=== PATIENT | female | born 1990 | race Caucasian/White ===

== ENCOUNTER 2016-09-17 07:20 | Emergency (ER) | payer OTHER ==
--- NOTE | 2016-09-17 09:29 | ED ORDER SUMMARY ---
..... Patient: EDVIN PADILLA OrderSheet [facility] VisitID: [id number] [address] [place] [address] 25y, F Registration Date/Time: 09/17/2016 ORDER SHEET Weight: 108.8 kg (stated) Allergies: No Known Drug Allergy GENERAL ORDERS: US Pelvic Complete w Transvag Urgent (07:32 09/17/2016 Trev RUSSO) (Ack 8:20 LNations ER Tech1) (9:35 KWilliams R.N.) UA-Culture if indicated Urgent (07:33 09/17/2016 Trev RUSSO) (7:50 KWilliams R.N.) Urine Urgent (07:33 09/17/2016 Trev RUSSO) (7:50 KWilliams R.N.) Rapid Influenza Screen (Nasal Pharyngeal) (CONFIGURATION ENGINEER swab) Urgent (07:50 09/17/2016 KWilliams R.N. verbal order read back to Trev RUSSO) (7:50 KWilliams R.N.) CBC w Diff Urgent (08:08 09/17/2016 Trev RUSSO) (Ack 8:20 LNations ER Tech1) (8:33 KWilliams R.N.) MEDICATION ORDERS: - (tamiflu 75 mg PO x 1) (08:32 09/17/2016 Trev RUSSO) (8:45 KWilliams R.N.) IV FLUIDS: IV NS : initial bolus 1000 mL (1000 mL/hr), then none - (NOW) (08:07 09/17/2016 Trev RUSSO) (8:34 KWilliams R.N.) Zofran IV 8 mg (NOW) (08:08 09/17/2016 Trev RUSSO) (8:44 KWilliams R.N.) Toradol IV 30 mg (NOW) (08:09/17/2016 Trev RUSSO) (8:45 KWilliams R.N.) ORDER SHEET NOTES: [Electronically signed by Jules Knox R.N. (10:08 09/17/2016)] [Electronically signed by Joellen Flores MD (06:47 09/21/2016)] [Electronically locked/signed by Jules Knox R.N. (10:08 09/17/2016)]
--- NOTE | 2016-09-17 09:29 | ED CLINICAL REPORT ---
Clinical Report - Physicians/Mid Levels [facility] [address] [place] [address] 09/17/2016 7:21 Patient: EDVIN PADILLA Time Seen: 07:32. Arrived- By private vehicle. Historian- patient. HISTORY OF PRESENT ILLNESS Chief Complaint: VOMITING and DIARRHEA. NAUSEA body aches, fever, sore throat, cough. This started several days ago and is still present. No recent travel. She has had nausea, vomiting and diarrhea. No black stools, bloody stools, abdominal pain, constipation or flank pain. No history of possible bad food exposure. Has not recently been camping or on antibiotics. She has had contact with a sick individual. 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 The illness is described as moderate. (Pt also notes that she has had heavy uterine bleeding since her IUD was removed 2 weeks ago.). Similar symptoms previously: None. Recent medical care: The patient was seen recently by a health care provider. REVIEW OF SYSTEMS The patient has had fever, muscle aches and abnormal bleeding. She has had a headache, sore throat and cough and dizziness. No difficulty with urination, dark urine, chest pain, difficulty breathing or excessive urination. No skin rash, jaundice, back pain, fainting episodes or blurred vision. Denies current . All systems otherwise negative, except as recorded above. PAST HISTORY Problems: GI Bleeding. LNMP - Last Normal Menstrual Period. Constipation. Immunizations. . Additional Surgeries: Endoscopy. Medications: None. Allergies: No Known Drug Allergy. SOCIAL HISTORY Never smoker. No alcohol use or drug use. ADDITIONAL NOTES The nursing notes have been reviewed. PHYSICAL EXAM Vital Signs: 09/17/2016 07:42 BP: 103/61. HR: 119. RR: 19. O2 saturation: 96%. Temp: 99.3 F. Have been reviewed. Appearance: Alert. Oriented X3. No acute distress. Eyes: Pupils equal, round and reactive to light. Eyes normal inspection. ENT: Nose normal. Neck: Normal inspection. CVS: Normal heart rate and rhythm. Heart sounds normal. Pulses normal. Respiratory: No respiratory distress. Breath sounds normal. Abdomen: Soft and nontender. Back: Normal inspection. No CVA tenderness. : Normal external exam. Moderate vaginal bleeding, consisting of bright red blood, via the cervical os. Bimanual exam normal. Skin: Skin warm and dry. Normal skin color. No rash. Normal skin turgor. Extremities: Extremities exhibit normal ROM. No lower extremity edema. Neuro: Oriented X 3. No motor deficit. No sensory deficit. LABS, X-RAYS, AND EKG Pelvic Sonogram: Normal study. Uterus normal. Adnexa normal. No free fluid. No intrauterine . Study type: bedside transvaginal evaluation. The study was interpreted by the radiologist and discussed with the radiologist. Prior studies were not available for comparison. Laboratory Tests: UA-Culture if indicated: (DOUGLAS: 09/17/2016 07:48) ( [facility] [place] 09/17/2016 08:41) Final results Test Result Flag Units (Reference) URINE COLOR YELLOW URINE APPEARANCE CLEAR URINE GLUCOSE NEGATIVE (NEGATIVE) URINE BILIRUBIN NEGATIVE (NEGATIVE) URINE KETONE NEGATIVE (NEGATIVE) URINE SPECIFIC GRAVITY 1.020 (1.010-1.030) URINE PH 6.0 (5.0-8.0) URINE PROTEIN NEGATIVE (NEGATIVE) URINE UROBILINOGEN 0.2 EU/dL (0.2-1.0) URINE NITRITE NEGATIVE (NEGATIVE) URINE BLOOD 3+ (NEGATIVE) URINE LEUK ESTERASE NEGATIVE (NEGATIVE) URINE RBC 3-5 rbc/hpf (0-1) URINE WBC 0-1 wbc/hpf (0-1) URINE EPITHELIAL CELLS 0-1 EPI/hpf (0-5) URINE BACTERIA FEW (1+) (NONE SEEN) URINE COMMENT CULT NOT INDICATED URINE CULTURES ARE SET-UP BASED ON THE FOLLOWING CRITERIA:POSITIVE NITRITEPOSITIVE LEUKOCYTE ESTERASEGREATER THAN 10 WHITE BLOOD CELLSMODERATE (2+) OR GREATER BACTERIA Urine: (DOUGLAS: 09/17/2016 07:48) ( [facility] [place] [facility]) Final results Test Result Flag Units (Reference) URINE NEGATIVE CBC w Diff: (DOUGLAS: 09/17/2016 08:25) ( MsgRcvd 09/17/2016 08:38) Final results Test Result Flag Units (Reference) WHITE BLOOD COUNT 8.1 K/uL (4.5-11.5) RED BLOOD COUNT 4.43 M/uL (4.00-5.20) HEMOGLOBIN 12.4 gm/dL (12.0-16.0) HEMATOCRIT 37.7 % (36.0-46.0) MEAN CELL VOLUME 85 fL (80-100) MEAN CORPUSCULAR HGB 28 pg (26-34) MEAN CORPUSCULAR HGB CONC 33 g/dL (31-37) RED CELL DISTRIBUTION WIDTH 12.9 % (11.6-14.8) PLATELET COUNT 240 K/uL (150-400) NEUTROPHIL % 75.1 H % (50-75) LYMPH % 15.7 L % (25-40) MONO % 8.8 % (3-14) EOSINOPHIL % 0.2 % (0-4) BASOPHIL % 0.2 % (0-2) Rapid Influenza Screen: (DOUGLAS: 09/17/2016 07:42) ( MsgRcvd 09/17/2016 08:19) Final results SPECIMEN DESCRIPTION: ALUMINUM POURER SWAB Test Result Flag Units (Reference) RAPID INFLUENZA SCREEN CALLED TO: SALVADOR -- DATE: 09/17/16 INFLUENZA A: POSITIVE SCREEN FOR INFLUENZA A INFLUENZA B: NEGATIVE SCREEN FOR INFLUENZA B . Pulse Oximetry: 09/17/2016 07:42 O2 saturation: 96%. (FIO2 - room air). Interpretation: normal. PROGRESS AND PROCEDURES Course of Care: PT was given a liter of IV fluid, and worked up for her sx. She was found to be positive for influenza A, and as such, was treated with Tamiflu. Pt's H/H were found to be normal. A pelvic US was ordered, and showed noconcerning findings. Pt will follow up her dysfunctional uterine bleeding on 09/21, as planned, with her doctor. I suspect this bleeding is secondary to the withdrawal of hormones, which occurred when the hormone-eluting IUD was removed. Patient counseled in person regarding the patient's stable condition, test results, diagnosis and need for follow-up. Concerns were addressed. Old medical records reviewed. Disposition: Discharged. Condition: stable. CLINICAL IMPRESSION Moderate pre-menopausal dysfunctional uterine bleeding. Influenza type A with upper respiratory infection, pharyngitis and gastroenteritis. INSTRUCTIONS Do not work for three days. Drink plenty of fluids. (Your blood levels look good--no anemia. Your influenza test was positive for influenza A, and you have been started on Tamiflu for this.). Warnings: GENERAL WARNINGS: Return or contact your physician immediately if your condition worsens or changes unexpectedly, if not improving as expected, or if other problems arise. Prescription Medications: Zofran (orally disintegrating tablets) 4 mg: take 1-2 orally every 6 hours as needed for nausea. Dispense fifteen (15). No refill. Substitution is permissible. Tamiflu 75 mg: take 1 capsule orally every 12 hours for 5 days. No refill. Substitution is permissible. Follow-up: Follow up with your doctor in four days as scheduled. Understanding of the discharge instructions verbalized by patient. (Electronically signed by Joellen Flores MD 09/21/2016 6:47)
--- NOTE | 2016-09-17 09:29 | ED CLINICAL REPORT ---
Clinical Report - Physicians/Mid Levels [facility] [address] [place] [address] 09/17/2016 7:21 Patient: EDVIN PADILLA Time Seen: 07:32. Arrived- By private vehicle. Historian- patient. HISTORY OF PRESENT ILLNESS Chief Complaint: VOMITING and DIARRHEA. NAUSEA body aches, fever, sore throat, cough. This started several days ago and is still present. No recent travel. She has had nausea, vomiting and diarrhea. No black stools, bloody stools, abdominal pain, constipation or flank pain. No history of possible bad food exposure. Has not recently been camping or on antibiotics. She has had contact with a sick individual. 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 The illness is described as moderate. (Pt also notes that she has had heavy uterine bleeding since her IUD was removed 2 weeks ago.). Similar symptoms previously: None. Recent medical care: The patient was seen recently by a health care provider. REVIEW OF SYSTEMS The patient has had fever, muscle aches and abnormal bleeding. She has had a headache, sore throat and cough and dizziness. No difficulty with urination, dark urine, chest pain, difficulty breathing or excessive urination. No skin rash, jaundice, back pain, fainting episodes or blurred vision. Denies current . All systems otherwise negative, except as recorded above. PAST HISTORY Problems: GI Bleeding. LNMP - Last Normal Menstrual Period. Constipation. Immunizations. . Additional Surgeries: Endoscopy. Medications: None. Allergies: No Known Drug Allergy. SOCIAL HISTORY Never smoker. No alcohol use or drug use. ADDITIONAL NOTES The nursing notes have been reviewed. PHYSICAL EXAM Vital Signs: 09/17/2016 07:42 BP: 103/61. HR: 119. RR: 19. O2 saturation: 96%. Temp: 99.3 F. Have been reviewed. Appearance: Alert. Oriented X3. No acute distress. Eyes: Pupils equal, round and reactive to light. Eyes normal inspection. ENT: Nose normal. Neck: Normal inspection. CVS: Normal heart rate and rhythm. Heart sounds normal. Pulses normal. Respiratory: No respiratory distress. Breath sounds normal. Abdomen: Soft and nontender. Back: Normal inspection. No CVA tenderness. : Normal external exam. Moderate vaginal bleeding, consisting of bright red blood, via the cervical os. Bimanual exam normal. Skin: Skin warm and dry. Normal skin color. No rash. Normal skin turgor. Extremities: Extremities exhibit normal ROM. No lower extremity edema. Neuro: Oriented X 3. No motor deficit. No sensory deficit. LABS, X-RAYS, AND EKG Pelvic Sonogram: Normal study. Uterus normal. Adnexa normal. No free fluid. No intrauterine . Study type: bedside transvaginal evaluation. The study was interpreted by the radiologist and discussed with the radiologist. Prior studies were not available for comparison. Laboratory Tests: UA-Culture if indicated: (DOUGLAS: 09/17/2016 07:48) ( [facility] [place] 09/17/2016 08:41) Final results Test Result Flag Units (Reference) URINE COLOR YELLOW URINE APPEARANCE CLEAR URINE GLUCOSE NEGATIVE (NEGATIVE) URINE BILIRUBIN NEGATIVE (NEGATIVE) URINE KETONE NEGATIVE (NEGATIVE) URINE SPECIFIC GRAVITY 1.020 (1.010-1.030) URINE PH 6.0 (5.0-8.0) URINE PROTEIN NEGATIVE (NEGATIVE) URINE UROBILINOGEN 0.2 EU/dL (0.2-1.0) URINE NITRITE NEGATIVE (NEGATIVE) URINE BLOOD 3+ (NEGATIVE) URINE LEUK ESTERASE NEGATIVE (NEGATIVE) URINE RBC 3-5 rbc/hpf (0-1) URINE WBC 0-1 wbc/hpf (0-1) URINE EPITHELIAL CELLS 0-1 EPI/hpf (0-5) URINE BACTERIA FEW (1+) (NONE SEEN) URINE COMMENT CULT NOT INDICATED URINE CULTURES ARE SET-UP BASED ON THE FOLLOWING CRITERIA:POSITIVE NITRITEPOSITIVE LEUKOCYTE ESTERASEGREATER THAN 10 WHITE BLOOD CELLSMODERATE (2+) OR GREATER BACTERIA Urine: (DOUGLAS: 09/17/2016 07:48) ( [facility] [place] Final results Test Result Flag Units (Reference) URINE NEGATIVE CBC w Diff: (DOUGLAS: 09/17/2016 08:25) ( MsgRcvd 09/17/2016 08:38) Final results Test Result Flag Units (Reference) WHITE BLOOD COUNT 8.1 K/uL (4.5-11.5) RED BLOOD COUNT 4.43 M/uL (4.00-5.20) HEMOGLOBIN 12.4 gm/dL (12.0-16.0) HEMATOCRIT 37.7 % (36.0-46.0) MEAN CELL VOLUME 85 fL (80-100) MEAN CORPUSCULAR HGB 28 pg (26-34) MEAN CORPUSCULAR HGB CONC 33 g/dL (31-37) RED CELL DISTRIBUTION WIDTH 12.9 % (11.6-14.8) PLATELET COUNT 240 K/uL (150-400) NEUTROPHIL % 75.1 H % (50-75) LYMPH % 15.7 L % (25-40) MONO % 8.8 % (3-14) EOSINOPHIL % 0.2 % (0-4) BASOPHIL % 0.2 % (0-2) Rapid Influenza Screen: (DOUGLAS: 09/17/2016 07:42) ( MsgRcvd 09/17/2016 08:19) Final results SPECIMEN DESCRIPTION: [place] HISTORY PROFESSOR SWAB Test Result Flag Units (Reference) RAPID INFLUENZA SCREEN CALLED TO: SALVADOR -- DATE: 09/17/16 INFLUENZA A: POSITIVE SCREEN FOR INFLUENZA A INFLUENZA B: NEGATIVE SCREEN FOR INFLUENZA B . Pulse Oximetry: 09/17/2016 07:42 O2 saturation: 96%. (FIO2 - room air). Interpretation: normal. PROGRESS AND PROCEDURES Course of Care: PT was given a liter of IV fluid, and worked up for her sx. She was found to be positive for influenza A, and as such, was treated with Tamiflu. Pt's H/H were found to be normal. A pelvic US was ordered, and showed noconcerning findings. Pt will follow up her dysfunctional uterine bleeding on 09/21, as planned, with her doctor. I suspect this bleeding is secondary to the withdrawal of hormones, which occurred when the hormone-eluting IUD was removed. Patient counseled in person regarding the patient's stable condition, test results, diagnosis and need for follow-up. Concerns were addressed. Old medical records reviewed. Disposition: Discharged. Condition: stable. CLINICAL IMPRESSION Moderate pre-menopausal dysfunctional uterine bleeding. Influenza type A with upper respiratory infection, pharyngitis and gastroenteritis. INSTRUCTIONS Do not work for three days. Drink plenty of fluids. (Your blood levels look good--no anemia. Your influenza test was positive for influenza A, and you have been started on Tamiflu for this.). Warnings: GENERAL WARNINGS: Return or contact your physician immediately if your condition worsens or changes unexpectedly, if not improving as expected, or if other problems arise. Prescription Medications: Zofran (orally disintegrating tablets) 4 mg: take 1-2 orally every 6 hours as needed for nausea. Dispense fifteen (15). No refill. Substitution is permissible. Tamiflu 75 mg: take 1 capsule orally every 12 hours for 5 days. No refill. Substitution is permissible. Follow-up: Follow up with your doctor in four days as scheduled. Understanding of the discharge instructions verbalized by patient. (Electronically signed by Joellen Flores MD 09/21/2016 6:47)
--- NOTE | 2016-09-17 09:29 | ED ORDER SUMMARY ---
..... Patient: EDVIN PADILLA OrderSheet [facility] VisitID: [id number] [address] [place] [address] 25y, F Registration Date/Time: 09/17/2016 ORDER SHEET Weight: 108.8 kg (stated) Allergies: No Known Drug Allergy GENERAL ORDERS: US Pelvic Complete w Transvag Urgent (07:32 09/17/2016 Trev RUSSO) (Ack 8:20 LNations ER Tech1) (9:35 KWilliams R.N.) UA-Culture if indicated Urgent (07:33 09/17/2016 Trev RUSSO) (7:50 KWilliams R.N.) Urine Urgent (07:33 09/17/2016 Trev RUSSO) (7:50 KWilliams R.N.) Rapid Influenza Screen (Nasal Pharyngeal) (PAYROLL MASTER swab) Urgent (07:50 09/17/2016 KWilliams R.N. verbal order read back to Trev RUSSO) (7:50 KWilliams R.N.) CBC w Diff Urgent (08:08 09/17/2016 Trev RUSSO) (Ack 8:20 LNations ER Tech1) (8:33 KWilliams R.N.) MEDICATION ORDERS: - (tamiflu 75 mg PO x 1) (08:32 09/17/2016 Trev RUSSO) (8:45 KWilliams R.N.) IV FLUIDS: IV NS : initial bolus 1000 mL (1000 mL/hr), then none - (NOW) (08:07 09/17/2016 Trev RUSSO) (8:34 KWilliams R.N.) Zofran IV 8 mg (NOW) (08:08 09/17/2016 Trev RUSSO) (8:44 KWilliams R.N.) Toradol IV 30 mg (NOW) (08:09/17/2016 Trev RUSSO) (8:45 KWilliams R.N.) ORDER SHEET NOTES: [Electronically signed by Jules Knox R.N. (10:08 09/17/2016)] [Electronically signed by Joellen Flores MD (06:47 09/21/2016)] [Electronically locked/signed by Jules Knox R.N. (10:08 09/17/2016)]
--- NOTE | 2016-09-17 09:29 | ED NURSING NOTES ---
Clinical Report - Nurses [facility] [address] [place] [address] 09/17/2016 7:21 Patient: EDVIN PADILLA TRIAGE Triage time 07:30. Acuity: LEVEL 3. Chief Complaint: "FLU" and COUGH and possible FLU EXPOSURE. 07:42 09/17/16. Alert. No acute distress. SEPSIS SCREEN: Sepsis Screen. Infection suspected/documented. Heart rate greater than 90. Respiratory rate not greater than 20. --07:42 Jules Knox R.N. 07:42 09/17/16. BP: 103/61. HR: 119. RR: 19. O2 saturation: 96%. Temp: 99.3 F. Pain level now 6/10. --07:42 Jules Knox R.N. Weight: 108.8 kg stated. Height/Length: 66 inches Per Patient. BMI: 38.7. --07:38 Jules Knox R.N. Medications None. --07:41 Jules Knox R.N. Allergies No Known Drug Allergy. --07:41 Jules Knox R.N. Medication/allergy information source: the patient. --07:42 Jules Knox R.N. History Arrived by private vehicle. Historian: patient. Primary physician ([facility] dorothy). ( c/o aches, congestion and coughing x 4 days, with emesis x2 today that contained bright red blood. Also states she has been bleeding vaginally since IUD removal on 09/01 and is going through 4 pads per day. States blood contains clots and has been steady since 09/01). Onset. (4 days ago). 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 (yesterday). PAST MEDICAL HX: Last normal menstrual period- sexually active since IUD removal. No contraception. Denies current . SOCIAL HX: Never smoker. No alcohol use or drug use. FALL RISK ASSESSMENT: Fall risk assessment completed. No fall risk identified. NUTRITIONAL RISK ASSESSMENT: The nutritional risk assessment revealed no deficiencies. FUNCTIONAL ASSESSMENT: Functional assessment: no impairments noted. LEARNING NEEDS ASSESSMENT: The learning needs assessment revealed no barriers. SKIN INTEGRITY ASSESSMENT: Skin integrity risk assessment completed. No skin integrity risk identified. --07:42 Jules Knox R.N. PROBLEMS: Pelvic Pain. GI Bleeding. URI. Constipation. Abdominal Pain. . --07:41 Jules Knox R.N. ADDITIONAL SURGERIES: Endoscopy. --07:41 Jules Knox R.N. Interventions ID band on patient. To treatment room. --07:42 Jules Knox R.N. PHYSICAL ASSESSMENT 07:43 09/17/16. Ambulatory to room. GENERAL / NEURO / PSYCH: Alert. Oriented X 4. Appears in no acute distress. HEENT: Mucous membranes are pink. RESPIRATORY: Respirations not labored. Cough. CVS: Pulses within normal limits. GI / : Abdomen soft and nontender. SKIN: Skin intact. Skin is warm and dry. --07:43 Jules Knox R.N. NURSING PROGRESS NOTES 07:43 09/17/16. The plan of care for this patient has been created. Patient gowned. Head of bed elevated. Call light placed in reach. Bed placed in lowest position. Brakes of bed on. --07:43 Jules Knox R.N. 07:46 09/17/16. Checked patient name and birthdate: patient confirmed. Flu swab obtained by RN via nasal pharyngeal swab. Labeled in the presence of the patient and sent to lab. --07:46 Jules Knox R.N. Assisted patient to bathroom. --07:46 Jules Knox R.N. Patient ID band checked for patient name and birthdate: patient confirmed. Instructions provided to collect clean catch urine and patient verbalized understanding. Clean catch urine collected with return of yellow-colored clear urine; odor is normal; sample sent to lab for urinalysis, culture and HCG. Specimen labeled in the presence of the patient. --07:49 Jules Knox R.N. 08:19 09/17/2016 Site #1 started via IV in the left antecubital space with an 20g angiocath, with aseptic technique and good blood return; one attempt. Blood drawn: rainbow set. Labeled in the presence of the patient and sent to the lab. Saline lock flushed with 10 mL saline (ultrasound guidance x20 min). --08:34 Jules Knox R.N. 08:24 09/17/2016 Started bag #1 1000 mL IV Fluids IV NS (Saline); at 999 mL/hr over 1 hour(s) via site #1 via IV pump. Allergies verified and confirmed 5 rights. IV patency established. IV site checked: no pain, redness, or swelling. IV flushed thoroughly pre- and post-medication administration. Completed per protocol. --08:34 Jules Knox R.N. 08:29 09/17/2016 Zofran (Ondansetron HCl) IVP 8 mg given over 4 minute(s) via site #1. Allergies verified and confirmed 5 rights. IV patency established. IV site checked: no pain, redness, or swelling. IV flushed thoroughly pre- and post-medication administration. IVP given by RN. --08:44 Jules Knox R.N. 08:33 09/17/2016 Toradol IVP 30 mg given over 2 minute(s) via site #1. Allergies verified and confirmed 5 rights. IV patency established. IV site checked: no pain, redness, or swelling. IV flushed thoroughly pre- and post-medication administration. IVP given by RN. --08:45 Jules Knox R.N. 08:35 09/17/2016 Tamiflu PO Capsules 75 mg given. Allergies verified and confirmed 5 rights. --08:45 Jules Knox R.N. 08:45 09/17/16. BP: 105/60. HR: 104. RR: 16. O2 saturation: 98%. --08:46 Jules Knox R.N. PELVIC EXAM: Pelvic exam performed by ED physician. Assisted by one nurse. Preparation: pelvic tray and culture medium; patient placed in lithotomy position. Procedure: speculum and bimanual exam. Light amount of vaginal bleeding noted. No specimens collected. Status post-procedure: she was stable. Total time of assist / procedure: 15 minutes. --08:46 Jules Knox R.N. 09:50 09/17/2016 Site #1 removed upon discharge. Bandage applied. --09:59 Jules Knox R.N. 09:50 09/17/2016 IV Fluids IV NS Discontinued: bag #1 discontinued upon discharge. Total amount infused: 800 mL. IV patency established. IV site checked: no pain, redness, or swelling. IV flushed thoroughly. --09:58 Jules Knox R.N. DISPOSITION / DISCHARGE 10:01 09/17/16. Departure time: 0953. Condition at departure: improved and stable. ( MD aware of discharge HR). No learning barriers present. Discharge instructions provided and reviewed with the patient. Reviewed medication(s) side effects, precautions, dosing and course information. Prescription(s) given to the patient. Work note given. Patient verbalized understanding. Written instructions provided in Bengali. The patient was discharged by the physician. She was discharged home. She left the Emergency Department ambulatory and via private vehicle. Patient driving. --10:01 Jules Knox R.N. 09:59 09/17/16. BP: 111/60. HR: 94. RR: 15. O2 saturation: 97% on room air. Temp: 98.4 F (oral). Pain level now 0/10. --10:01 Jules Knox R.N. Locked/Released at 09/17/2016 10:08 by Jules Knox R.N.
--- NOTE | 2016-09-17 10:51 | DIAGNOSTIC IMAGING REPORT ---
PROCEDURE: US COMPLETE PELVIC W/TRANSVAG INDICATION: Bleeding after IUD removal. TECHNIQUE: Transabdominal and endovaginal bach scale and color Doppler sonographic images of the female pelvis were obtained. Ground Defence Officer (Jillian ANTHONY). COMPARISON: Compared to pelvic ultrasound on 08/11/2014. FINDINGS: TRANSABDOMINAL SCANS: Uterus is of normal size (is 6.2 x 6.0 x 4.8 cm). These are normal. TRANSVAGINAL SCANS: Interval removal of IUD. Endometrial thickness is normal (7 mm). Ovaries are normal (right 4.0 cm, left 4.1 cm) with 1.8 cm simple left ovarian cyst. No evidence of free fluid. IMPRESSION: 1. Interval removal of IUD. 2. 1.8 cm simple left ovarian cyst (incidental finding). 3. Otherwise negative pelvic ultrasound.
--- NOTE | 2016-09-21 06:47 | ED DISCHARGE INSTRUCTIONS ---
Patient: EDVIN PADILLA General Instructions [facility] VisitID: [id number] [place] [address] 25y, F Registration Date/Time: 09/17/2016 Moderate pre-menopausal dysfunctional uterine bleeding. Influenza type A with upper respiratory infection, pharyngitis and gastroenteritis. INSTRUCTIONS Do not work for three days. Drink plenty of fluids. (Your blood levels look good--no anemia. Your influenza test was positive for influenza A, and you have been started on Tamiflu for this.). Warnings: GENERAL WARNINGS: Return or contact your physician immediately if your condition worsens or changes unexpectedly, if not improving as expected, or if other problems arise. Prescription Medications: Zofran (orally disintegrating tablets) 4 mg: take 1-2 orally every 6 hours as needed for nausea. Dispense fifteen (15). No refill. Substitution is permissible. Tamiflu 75 mg: take 1 capsule orally every 12 hours for 5 days. No refill. Substitution is permissible. Follow-up: Follow up with your doctor in four days as scheduled. Understanding of the discharge instructions verbalized by patient. ADDITIONAL INFORMATION Irregular Vaginal Bleeding This is a condition in which bleeding occurs at unexpected times of the month. The bleeding may be heavier or pump tender than usual. Heavy bleeding may lead to anemia. If severe enough, anemia may cause you to look pale and feel weak or fatigued. You might have shortness of breath even with little exertion. The female hormones produced in your body every month may be out of balance. This imbalance leads to bleeding. Causes could include an ovarian cyst, emotional stress, pelvic infection. Failure to ovulate during your last cycle may also cause this problem. Home Care: If bleeding is heavy, rest and avoid heavy exertion. You may use acetaminophen (Tylenol) or ibuprofen (Motrin, Advil) to control pain, unless another pain medicine was prescribed. [NOTE: If you have chronic liver or kidney disease or ever had a stomach ulcer or GI bleeding, talk with your doctor before using these medicines.] Iron supplements may be prescribed for anemia. It takes about 4-6 weeks for the iron to correct the anemia. Take the medicine as directed. See your doctor for a repeat blood test after you finish the iron treatment. If hormones were prescribed to control your bleeding, take them exactly as directed. If you were prescribed a medicine called Provera (medroxyprogesterone), the bleeding should stop while you are taking it. Another period will start a few days after you finish the medicine. Follow Up with your doctor, or as advised, within the next 1-2 days if heavy bleeding continues. Otherwise, follow up within the next 1-2 weeks. Get Prompt Medical Attention if any of the following occur: Bleeding becomes heavy (soaking one pad an hour for three hours) Fever of 100.4F (38C) or higher, or as directed by your healthcare provider Increase in abdominal pain Weakness, dizziness or fainting Influenza (Adult) Influenza, also called the flu, is a viral illness that affects the air passages of the lungs. It differs from the common cold. It is highly contagious. It may be spread through the air by coughing and sneezing or by direct contact (touching the sick person and then touching your own eyes, nose or mouth). Illness starts 1-3 days after exposure and lasts for 1-2 weeks. Antibiotics are usually not needed unless a complication appears (ear or sinus infection or pneumonia). Symptoms may be mild or severe and can include extreme tiredness (wanting to stay in bed all day), chills, fevers, muscle aching, soreness with eye movement, headache, and a dry, hacking cough. Home Care: Avoid exposure to cigarette smoke (yours or others). Tylenol or ibuprofen (Advil) will help fever, muscle aching, and headache. To avoid risk of liver injury, aspirin should not be used in children and teenagers under 18 with this illness. Nausea and loss of appetite are common. A light diet is recommended. Avoid dehydration by drinking 6-8 glasses of fluids per day (water, sport drinks like Gatorade, soft drinks without caffeine, juices, tea, soup, etc.). Extra fluids will also help loosen secretions in the nose and lungs. Ltxp-hpo-cybfvts cold medicines will not shorten the duration of the illness but may be helpful for the following symptoms: cough (Robitussin DM); sore throat (Chloraseptic lozenges or spray); nasal and sinus congestion (Actifed or Sudafed). [NOTE: Do not use decongestants if you have high blood pressure.] Stay home until your fever has been gone for at least 24 hours (without the use of fever-reducing medications such as ibuprofen). Follow Up with your doctor or as directed by our staff if you are not improving over the next week. Note: If you are age 65 or older, or if you have chronic asthma or COPD, we recommend a pneumococcal vaccinationevery five years. All adults shouldreceive a yearly influenza vaccination every . Ask your doctor about this. Get Prompt Medical Attention if any of the following occur: Cough with lots of colored sputum (mucus) or blood in your sputum Chest pain, shortness of breath, wheezing, or difficulty breathing Severe headache, face, neck or ear pain New rash Fever of 100.4F (38C) oral or higher, not better with fever medication Confusion, behavior change or seizure Severe weakness or dizziness You have been given the following additional information: Dysfunctional Uterine Bleeding Influenza (Adult) Do not work for three days. (Electronically signed by Joellen Flores MD 09/21/2016 6:47)
--- NOTE | 2016-09-21 06:47 | ED MED RECONCILIATION SUMMARY ---
Patient: EDVIN PADILLA Medication Reconciliation Report [facility] VisitID: [id number] [place] [address] 25y, F Registration Date/Time: 09/17/2016 Weight: 108.8 kg Height/Length: 66 in. BMI: 38.7 ALLERGIES: No Known Drug Allergy The patient's Home Medications are listed below: NONE. The source(s) of the original Home Medication information: patient The following Medications were given to the patient in the Emergency Department: IV NS IV Fluids bolus 0, then 999 mL/hr, administered: 09/17/2016 8:24:00 AM Zofran [IVP] IVP 8 mg, administered: 09/17/2016 8:29:00 AM Toradol [IVP] IVP 30 mg, administered: 09/17/2016 8:33:00 AM Tamiflu [PO] PO 75 mg, administered: 09/17/2016 8:35:00 AM The following Medications were prescribed to the patient: Zofran (orally disintegrating tablets) 4 mg: take 1-2 orally every 6 hours as needed for nausea. Dispense fifteen (15). No refill. Substitution is permissible. -- Joellen Flores MD Tamiflu 75 mg: take 1 capsule orally every 12 hours for 5 days. No refill. Substitution is permissible. -- Joellen Flores MD
--- NOTE | 2016-09-21 06:47 | ED MAR SUMMARY ---
..... Medication Administration Record [facility] [address] [place] [address] Patient: EDVIN PADILLA Visit ID: [id number] 25y, F Weight: 108.8 kg Height/Length: 66 in BMI: 38.7 ALLERGIES: No Known Drug Allergy Start 08:24 09/17/2016 Jules Knox R.N., Stop 09:50 09/17/2016 Jules Knox R.N. Medication Administered: IV NS (SALINE), Dose: IV Fluids over 1 hour(s), Rate: 999 mL/hr, Dispensed: 1000 mL bag, Site: #1 left AC. Medication Ordered: IV NS : initial bolus 1000 mL (1000 mL/hr), then none - (NOW). Given 08:29 09/17/2016 Jules Knox R.N. Medication Administered: ZOFRAN [IVP] (ONDANSETRON HCL), Dose: 8 mg IVP over 4 minute(s), Site: #1 left AC. Medication Ordered: Zofran IV 8 mg (NOW). Given 08:33 09/17/2016 Jules Knox R.N. Medication Administered: TORADOL [IVP], Dose: 30 mg IVP over 2 minute(s), Site: #1 left AC. Medication Ordered: Toradol IV 30 mg (NOW). Given 08:35 09/17/2016 Jules Knox R.N. Medication Administered: TAMIFLU [PO], Dose: 75 mg Capsules PO. Medication Ordered: - (tamiflu 75 mg PO x 1).
--- NOTE | 2016-09-21 06:47 | ED MED RECONCILIATION SUMMARY ---
Patient: EDVIN PADILLA Medication Reconciliation Report [facility] VisitID: [id number] [place] [address] 25y, F Registration Date/Time: 09/17/2016 Weight: 108.8 kg Height/Length: 66 in. BMI: 38.7 ALLERGIES: No Known Drug Allergy The patient's Home Medications are listed below: NONE. The source(s) of the original Home Medication information: patient The following Medications were given to the patient in the Emergency Department: IV NS IV Fluids bolus 0, then 999 mL/hr, administered: 09/17/2016 8:24:00 AM Zofran [IVP] IVP 8 mg, administered: 09/17/2016 8:29:00 AM Toradol [IVP] IVP 30 mg, administered: 09/17/2016 8:33:00 AM Tamiflu [PO] PO 75 mg, administered: 09/17/2016 8:35:00 AM The following Medications were prescribed to the patient: Zofran (orally disintegrating tablets) 4 mg: take 1-2 orally every 6 hours as needed for nausea. Dispense fifteen (15). No refill. Substitution is permissible. -- Joellen Flores MD Tamiflu 75 mg: take 1 capsule orally every 12 hours for 5 days. No refill. Substitution is permissible. -- Joellen Flores MD
--- NOTE | 2016-09-21 06:47 | ED MAR SUMMARY ---
..... Medication Administration Record [facility] [address] [place] [address] Patient: EDVIN PADILLA Visit ID: [id number] 25y, F Weight: 108.8 kg Height/Length: 66 in BMI: 38.7 ALLERGIES: No Known Drug Allergy Start 08:24 09/17/2016 Jules Knox R.N., Stop 09:50 09/17/2016 Jules Knox R.N. Medication Administered: IV NS (SALINE), Dose: IV Fluids over 1 hour(s), Rate: 999 mL/hr, Dispensed: 1000 mL bag, Site: #1 left AC. Medication Ordered: IV NS : initial bolus 1000 mL (1000 mL/hr), then none - (NOW). Given 08:29 09/17/2016 Jules Knox R.N. Medication Administered: ZOFRAN [IVP] (ONDANSETRON HCL), Dose: 8 mg IVP over 4 minute(s), Site: #1 left AC. Medication Ordered: Zofran IV 8 mg (NOW). Given 08:33 09/17/2016 Jules Knox R.N. Medication Administered: TORADOL [IVP], Dose: 30 mg IVP over 2 minute(s), Site: #1 left AC. Medication Ordered: Toradol IV 30 mg (NOW). Given 08:35 09/17/2016 Jules Knox R.N. Medication Administered: TAMIFLU [PO], Dose: 75 mg Capsules PO. Medication Ordered: - (tamiflu 75 mg PO x 1).
== END 2016-09-17 09:53 | disposition home or self-care (01) ==
LOC: ED SRH 07:20
DX: N92.4 Excessive bleeding in the premenopausal period (principal); J10.1 Influenza due to other identified influenza virus with other respiratory manifestations; J06.9 Acute upper respiratory infection, unspecified; J02.9 Acute pharyngitis, unspecified; K52.9 Noninfective gastroenteritis and colitis, unspecified
CPT/HCPCS: 90004; 91400; 93070; 95059

== ENCOUNTER 2016-12-05 19:18 | Emergency (ER) | payer OTHER ==
--- NOTE | 2016-12-05 20:45 | ED NURSING NOTES ---
Clinical Report - Nurses [facility] [address] [place] [address] 12/05/2016 19:20 Patient: EDVIN PADILLA TRIAGE Triage time 19:33 Dec 05 2016. Acuity: LEVEL 3. Chief Complaint: PELVIC PAIN. Alert. DANITZA COMA SCORE: Danitza Coma Scale: 15- eyes open spontaneously (4); best verbal response- oriented x 4 (5); best motor response- obeys commands (6). --19:41 Chevy Jenkins R.N. 19:33 12/05/16. BP: 124/77. HR: 100. RR: 12. O2 saturation: 100% on room air. Temp: 98.8 F. Pain level now: 0/10. --19:41 Chevy Jenkins R.N. Weight: 115.6 kg stated. Height/Length: 67 inches Per Patient. BMI: 40. --19:36 Chevy Jenkins R.N. Medications None. --19:35 Chevy Jenkins R.N. Allergies No Known Drug Allergy. --19:35 Chevy Jenkins R.N. History Arrived by private vehicle. Historian: patient. Accompanied by family. ( Foul Smelling urine with diffuse abdominal pain, "all over the tummy," earlier. Pt states that she was also feeling dizzy earlier.). This started today. Last oral intake by patient was 1 hour ago. 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 PAST MEDICAL HX: Negative. Immunizations: up-to-date. Last normal menstrual period was 5 weeks ago. SOCIAL HX: Never smoker. No alcohol use or drug use. No infectious disease exposure. ABUSE ASSESSMENT: No report of abuse. FALL RISK ASSESSMENT: Fall risk assessment completed. No fall risk identified. NUTRITIONAL RISK ASSESSMENT: The nutritional risk assessment revealed no deficiencies. FUNCTIONAL ASSESSMENT: Functional assessment: no impairments noted. LEARNING NEEDS ASSESSMENT: The learning needs assessment revealed no barriers. SKIN INTEGRITY ASSESSMENT: Skin integrity risk assessment completed. No skin integrity risk identified. --19:41 Chevy Jenkins R.N. PROBLEMS: Dysfunctional Uterine Bleeding. Influenza. Pelvic Pain. GI Bleeding. URI. Constipation. . --19:39 Chevy Jenkins R.N. ADDITIONAL SURGERIES: Endoscopy. --19:39 Chevy Jenkins R.N. Interventions ID band on patient. To treatment room. --19:41 Chevy Jenkins R.N. PHYSICAL ASSESSMENT Ambulatory to room. GENERAL / NEURO / PSYCH: Alert. Oriented X 4. HEENT: Mucous membranes are pink. RESPIRATORY: Breath sounds within normal limits. CVS: Normal heart rate and rhythm. Capillary refill less than 2 seconds. GI / : Abdomen soft. SKIN: Skin is warm and dry. --19:43 Chevy Jenkins R.N. NURSING PROGRESS NOTES Reassurance given. Patient identifiers checked. Call light placed in reach. Side rails up x 1. Bed placed in lowest position. Brakes of bed on. Patient ready for evaluation- chart flagged and ED physician notified. --19:42 Chevy Jenkins R.N. 19:37 12/05/16. Patient ID band checked for patient name, birthdate and social security number: patient confirmed. Instructions provided to collect clean catch urine and patient verbalized understanding. Clean catch urine collected with return of yellow-colored clear urine; odor is normal; sample sent to lab for urinalysis, culture and HCG. Specimen labeled in the presence of the patient. --19:42 Chevy Jenkins R.N. 20:50 12/05/2016 Macrobid PO Capsules 100 mg given. Allergies verified and confirmed 5 rights. --20:50 Jez Turner R.N. DISPOSITION / DISCHARGE Departure time: 20:58. Condition at departure: improved. No learning barriers present. Discharge instructions provided and reviewed with the patient. Reviewed warnings. Reviewed medication(s) side effects, precautions, dosing and course information. Prescription(s) given to the patient. Treatments reviewed. Reviewed referrals. Follow up contact number. Patient verbalized understanding. Written instructions provided in Colombian. No diet instructions, activity restrictions or stop smoking instructions. No work note given or school note given. The patient was discharged by the physician. She was discharged home and accompanied by family. She left the Emergency Department ambulatory and via private vehicle. Family member driving. FALL RISK ASSESSMENT: Fall risk assessment completed. No fall risk identified. --20:58 Desmond Woods 20:57 12/05/16. BP: 136/68. HR: 72. RR: 18. O2 saturation: 99%. Temp: deferred. Pain level now: 10/27. --20:58 Desmond Woods Locked/Released at 12/05/2016 20:58 by Desmond Woods
--- NOTE | 2016-12-05 20:45 | ED ORDER SUMMARY ---
..... 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 (20:58 12/05/2016)] [Electronically signed by Ynes Nation P.A.-C (21:42 12/05/2016)] [Electronically locked/signed by Anita Altamirano R.N. (20:58 12/05/2016)]
--- NOTE | 2016-12-05 20:45 | ED NURSING NOTES ---
Clinical Report - Nurses [facility] [address] [place] [address] 12/05/2016 19:20 Patient: EDVIN PADILLA TRIAGE Triage time 19:33 Dec 05 2016. Acuity: LEVEL 3. Chief Complaint: PELVIC PAIN. Alert. DANITZA COMA SCORE: Danitza Coma Scale: 15- eyes open spontaneously (4); best verbal response- oriented x 4 (5); best motor response- obeys commands (6). --19:41 Chevy Jenkins R.N. 19:33 12/05/16. BP: 124/77. HR: 100. RR: 12. O2 saturation: 100% on room air. Temp: 98.8 F. Pain level now: 0/10. --19:41 Chevy Jenkins R.N. Weight: 115.6 kg stated. Height/Length: 67 inches Per Patient. BMI: 40. --19:36 Chevy Jenkins R.N. Medications None. --19:35 Chevy Jenkins R.N. Allergies No Known Drug Allergy. --19:35 Chevy Jenkins R.N. History Arrived by private vehicle. Historian: patient. Accompanied by family. ( Foul Smelling urine with diffuse abdominal pain, "all over the tummy," earlier. Pt states that she was also feeling dizzy earlier.). This started today. Last oral intake by patient was 1 hour ago. 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 PAST MEDICAL HX: Negative. Immunizations: up-to-date. Last normal menstrual period was 5 weeks ago. SOCIAL HX: Never smoker. No alcohol use or drug use. No infectious disease exposure. ABUSE ASSESSMENT: No report of abuse. FALL RISK ASSESSMENT: Fall risk assessment completed. No fall risk identified. NUTRITIONAL RISK ASSESSMENT: The nutritional risk assessment revealed no deficiencies. FUNCTIONAL ASSESSMENT: Functional assessment: no impairments noted. LEARNING NEEDS ASSESSMENT: The learning needs assessment revealed no barriers. SKIN INTEGRITY ASSESSMENT: Skin integrity risk assessment completed. No skin integrity risk identified. --19:41 Chevy Jenkins R.N. PROBLEMS: Dysfunctional Uterine Bleeding. Influenza. Pelvic Pain. GI Bleeding. URI. Constipation. . --19:39 Chevy Jenkins R.N. ADDITIONAL SURGERIES: Endoscopy. --19:39 Chevy Jenkins R.N. Interventions ID band on patient. To treatment room. --19:41 Chevy Jenkins R.N. PHYSICAL ASSESSMENT Ambulatory to room. GENERAL / NEURO / PSYCH: Alert. Oriented X 4. HEENT: Mucous membranes are pink. RESPIRATORY: Breath sounds within normal limits. CVS: Normal heart rate and rhythm. Capillary refill less than 2 seconds. GI / : Abdomen soft. SKIN: Skin is warm and dry. --19:43 Chevy Jenkins R.N. NURSING PROGRESS NOTES Reassurance given. Patient identifiers checked. Call light placed in reach. Side rails up x 1. Bed placed in lowest position. Brakes of bed on. Patient ready for evaluation- chart flagged and ED physician notified. --19:42 Chevy Jenkins R.N. 19:37 12/05/16. Patient ID band checked for patient name, birthdate and social security number: patient confirmed. Instructions provided to collect clean catch urine and patient verbalized understanding. Clean catch urine collected with return of yellow-colored clear urine; odor is normal; sample sent to lab for urinalysis, culture and HCG. Specimen labeled in the presence of the patient. --19:42 Chevy Jenkins R.N. 20:50 12/05/2016 Macrobid PO Capsules 100 mg given. Allergies verified and confirmed 5 rights. --20:50 Jez Turner R.N. DISPOSITION / DISCHARGE Departure time: 20:58. Condition at departure: improved. No learning barriers present. Discharge instructions provided and reviewed with the patient. Reviewed warnings. Reviewed medication(s) side effects, precautions, dosing and course information. Prescription(s) given to the patient. Treatments reviewed. Reviewed referrals. Follow up contact number. Patient verbalized understanding. Written instructions provided in Greek. No diet instructions, activity restrictions or stop smoking instructions. No work note given or school note given. The patient was discharged by the physician. She was discharged home and accompanied by family. She left the Emergency Department ambulatory and via private vehicle. Family member driving. FALL RISK ASSESSMENT: Fall risk assessment completed. No fall risk identified. --20:58 Desmond Woods 20:57 12/05/16. BP: 136/68. HR: 72. RR: 18. O2 saturation: 99%. Temp: deferred. Pain level now: 10/27. --20:58 Desmond Woods Locked/Released at 12/05/2016 20:58 by Desmond Woods
--- NOTE | 2016-12-05 20:45 | ED ORDER SUMMARY ---
..... 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 (20:58 12/05/2016)] [Electronically signed by Ynes Nation P.A.-C (21:42 12/05/2016)] [Electronically locked/signed by Anita Altamirano R.N. (20:58 12/05/2016)]
--- NOTE | 2016-12-05 20:45 | ED CLINICAL REPORT ---
Clinical Report - Physicians/Mid Levels [facility] [address] [place] [address] 12/05/2016 19:20 Patient: EDVIN PADILLA Time Seen: 19:45 Dec 05 2016. Arrived- By private vehicle. Historian- patient. HISTORY OF PRESENT ILLNESS Chief Complaint: PELVIC PAIN. This started just prior to arrival and still present. The symptoms are described as mild. No low back pain. (Patient with urinary symptoms of dysuria and some foul-smelling odor, 5 days late on her menses. No back pain. No emesis or diarrhea. Patient is 5 days late on her menses, taken at home test was negative. Patient reports no emesis or diarrhea. Denies any vaginal discharge. Before she had abdominal cramping earlier, however has no pain currently. Denies any flank pain or diarrhea.). REVIEW OF SYSTEMS No diarrhea, cough or chest pain. All systems otherwise negative, except as recorded above. SOCIAL HISTORY Never smoker. No alcohol use or drug use. ADDITIONAL NOTES The nursing notes have been reviewed. PHYSICAL EXAM Vital Signs: 12/05/2016 19:33 BP: 124/77. HR: 100. RR: 12. O2 saturation: 100%. Temp: 98.8 F. Pain level now: 0/10. Appearance: Alert. HEENT: Normal external inspection. Neck: Neck supple. No thyromegaly. CVS: Heart sounds normal. Rate normal. Respiratory: No respiratory distress. Breath sounds normal. Abdomen: Soft and nontender. Bowel sounds normal. No abdominal tenderness. Back: Normal external inspection. Skin: Skin warm. Normal skin color. LABS, X-RAYS, AND EKG Laboratory Tests: UA-Culture if indicated: (DOUGLAS: 12/05/2016 19:35) ( MsgRcvd 12/05/2016 20:15) Final results Test Result Flag Units (Reference) URINE COLOR LIGHT YELLOW URINE APPEARANCE CLEAR URINE GLUCOSE NEGATIVE (NEGATIVE) URINE BILIRUBIN NEGATIVE (NEGATIVE) URINE KETONE NEGATIVE (NEGATIVE) URINE SPECIFIC GRAVITY <= 1.005 L (1.010-1.030) URINE PH 7.0 (5.0-8.0) URINE PROTEIN NEGATIVE (NEGATIVE) URINE UROBILINOGEN 0.2 EU/dL (0.2-1.0) URINE NITRITE NEGATIVE (NEGATIVE) URINE BLOOD NEGATIVE (NEGATIVE) URINE LEUK ESTERASE NEGATIVE (NEGATIVE) URINE RBC RARE rbc/hpf (0-1) URINE WBC 1-3 wbc/hpf (0-1) URINE EPITHELIAL CELLS 3-5 EPI/hpf (0-5) URINE BACTERIA FEW (1+) (NONE SEEN) URINE COMMENT CULT NOT INDICATED URINE CULTURES ARE SET-UP BASED ON THE FOLLOWING CRITERIA:POSITIVE NITRITEPOSITIVE LEUKOCYTE ESTERASEGREATER THAN 10 WHITE BLOOD CELLSMODERATE (2+) OR GREATER BACTERIA Urine: (DOUGLAS: 12/05/2016 19:35) ( MsgRcvd 12/05/2016 20:10) Final results Test Result Flag Units (Reference) URINE NEGATIVE . PROGRESS AND PROCEDURES Course of Care: Patient with no pain, slight bacteria and urine, given cramping symptoms earlier, and foul-smelling odor we'll treat. Patient was otherwise stable. During the time in the ED, the following DDX were considered: acute surgical abdomen, hemodynamic or metabolic instability, dehydration, gastroenteritis-viral, food borne, or bacterial, food intolerance, irritable or inflammatory bowel, infection, sepsis. 12/05/2016 20:57 BP: 136/68. HR: 72. RR: 18. O2 saturation: 99%. Pain level now: 2/10. Patient is stable. Patient/family counseled. Differential Diagnosis: I considered perforated peptic ulcer, acute appendicitis, diverticulitis, adhesions, urinary tract infection, cystitis, prostatitis, ovarian cyst, ovarian torsion, , pelvic inflammatory disease and pelvic abscess as a possible cause of pelvic pain in this patient. This is a partial list of diagnoses considered. Disposition: Discharged. CLINICAL IMPRESSION Acute urinary tract infection with cystitis. INSTRUCTIONS Warnings: Further evaluation is necessary. Prescription Medications: Pyridium 200 mg: take 1 orally every 8 hours as needed for urinary problems. Dispense six (6). No refills. Substitution is permissible. Macrobid 100 mg: Take 1 capsule orally every 12 hours for 7 days. No refills. Substitution is permissible. Follow-up: Follow up with your doctor in two days. (Electronically signed by Ynes Nation P.A.-C 12/05/2016 21:42)
--- NOTE | 2016-12-05 21:43 | ED MAR SUMMARY ---
..... Medication Administration Record [facility] [address] [place] [address] Patient: EDVIN PADILLA Visit ID: [id number] 26y, F Weight: 115.6 kg Height/Length: 67 in BMI: 40 ALLERGIES: No Known Drug Allergy Given 20:50 12/05/2016 Jez Turner R.N. Medication Administered: MACROBID [PO], Dose: 100 mg Capsules PO. Medication Ordered: Macrobid PO 100 mg (NOW).
--- NOTE | 2016-12-05 21:43 | ED DISCHARGE INSTRUCTIONS ---
Patient: EDVIN PADILLA General Instructions [facility] VisitID: [id number] [place] [address] 26y, F Registration Date/Time: 12/05/2016 Acute urinary tract infection with cystitis. INSTRUCTIONS Warnings: Further evaluation is necessary. Prescription Medications: Pyridium 200 mg: take 1 orally every 8 hours as needed for urinary problems. Dispense six (6). No refills. Substitution is permissible. Macrobid 100 mg: Take 1 capsule orally every 12 hours for 7 days. No refills. Substitution is permissible. Follow-up: Follow up with your doctor in two days. ADDITIONAL INFORMATION Bladder Infection,Female (Adult) A bladder infection ("cystitis" or "UTI") usually causes a constant urge to urinate and a burning when passing urine. Urine may be cloudy, smelly or dark. There may be pain in the lower abdomen. A bladder infection occurs when bacteria from the vaginal area enter the bladder opening (urethra). This can occur from sexual intercourse, wearing tight clothing, dehydration and other factors. Home Care: Drink lots of fluids (at least 6-8 glasses a day, unless you must restrict fluids for other medical reasons). This will force the medicine into your urinary system and flush the bacteria out of your body. Avoid sexual intercourse until your symptoms are gone. Avoid caffeine, alcohol and spicy foods. These can irritate the bladder. A bladder infection is treated with antibiotics. You may also be given Pyridium (generic = phenazopyridine) to reduce the burning sensation. This medicine will cause your urine to become a bright orange color. The orange urine may stain clothing. You may wear a pad or panty-liner to protect clothing. Preventing Future Infections: Always wipe from front to back after a bowel movement. Keep the genital area clean and dry. Drink plenty of fluids each day to avoid dehydration. Both sexual partners should wash before intercourse. Urinate right after intercourse to flush out the bladder. Wear cotton underwear and cotton-lined panty hose; avoid tight-fitting pants. If you are on control pills and are having frequent bladder infections, discuss with your doctor. Follow Up: Return to this facility or see your doctor if ALL symptoms are not gone after three days of treatment. Get Prompt Medical Attention if any of the following occur: Fever of 100.4F (38C) or higher, or as directed by your healthcare provider No improvement by the third day of treatment Increasing back or abdominal pain Repeated vomiting; unable to keep medicine down Weakness, dizziness or fainting Vaginal discharge Pain, redness or swelling in the labia (outer vaginal area) You have been given the following additional information: Bladder Infection, Female (Adult) (Electronically signed by Ynes Nation P.A.-C 12/05/2016 21:42)
--- NOTE | 2016-12-05 21:43 | ED MED RECONCILIATION SUMMARY ---
Patient: EDVIN PADILLA Medication Reconciliation Report [facility] VisitID: [id number] [place] [address] 26y, F Registration Date/Time: 12/05/2016 Weight: 115.6 kg Height/Length: 67 in. BMI: 40.0 ALLERGIES: No Known Drug Allergy The patient's Home Medications are listed below: NONE. The source(s) of the original Home Medication information: Not obtained. The following Medications were given to the patient in the Emergency Department: Macrobid [PO] PO 100 mg, administered: 12/05/2016 8:50:00 PM The following Medications were prescribed to the patient: Pyridium 200 mg: take 1 orally every 8 hours as needed for urinary problems. Dispense six (6). No refills. Substitution is permissible. -- Ynes Nation, P.A.-C Macrobid 100 mg: Take 1 capsule orally every 12 hours for 7 days. No refills. Substitution is permissible. -- Ynes Nation, P.A.-C
--- NOTE | 2016-12-05 21:43 | ED MAR SUMMARY ---
..... Medication Administration Record [facility] [address] [place] [address] Patient: EDVIN PADILLA Visit ID: [id number] 26y, F Weight: 115.6 kg Height/Length: 67 in BMI: 40 ALLERGIES: No Known Drug Allergy Given 20:50 12/05/2016 Jez Turner R.N. Medication Administered: MACROBID [PO], Dose: 100 mg Capsules PO. Medication Ordered: Macrobid PO 100 mg (NOW).
--- NOTE | 2016-12-05 21:43 | ED MED RECONCILIATION SUMMARY ---
Patient: EDVIN PADILAL Medication Reconciliation Report [facility] VisitID: [id number] [place] [address] 26y, F Registration Date/Time: 12/05/2016 Weight: 115.6 kg Height/Length: 67 in. BMI: 40.0 ALLERGIES: No Known Drug Allergy The patient's Home Medications are listed below: NONE. The source(s) of the original Home Medication information: Not obtained. The following Medications were given to the patient in the Emergency Department: Macrobid [PO] PO 100 mg, administered: 12/05/2016 8:50:00 PM The following Medications were prescribed to the patient: Pyridium 200 mg: take 1 orally every 8 hours as needed for urinary problems. Dispense six (6). No refills. Substitution is permissible. -- Ynes Nation, P.A.-C Macrobid 100 mg: Take 1 capsule orally every 12 hours for 7 days. No refills. Substitution is permissible. -- Ynes Nation, P.A.-C
== END 2016-12-05 20:55 | disposition home or self-care (01) ==
LOC: ED SRH 19:18
DX: N30.00 Acute cystitis without hematuria (principal)
CPT/HCPCS: 90004; 90469; 93070

== ENCOUNTER 2016-12-06 22:58 | Emergency (ER) | payer OTHER ==
--- NOTE | 2016-12-07 00:15 | ED CLINICAL REPORT ---
Clinical Report - Physicians/Mid Levels [facility] [address] [place] [address] 12/06/2016 22:59 Patient: EDVIN PADILLA Time Seen: 23:10. Arrived- By private vehicle. Historian- patient. HISTORY OF PRESENT ILLNESS Chief Complaint: DYSURIA. This started several days ago and still present. It was gradual in onset and has been waxing/waning. The symptoms are described as mild. The patient has recently had irregular periods and had mild pain with urination. REVIEW OF SYSTEMS No calf pain, chest pain, cough, difficulty breathing or pedal edema. No palpitations. She has recently had irregular periods. She has had a mild global headache (today). All systems otherwise negative, except as recorded above. SOCIAL HISTORY Never smoker. No alcohol use or drug use. FAMILY HISTORY Denies family medical history. ADDITIONAL NOTES The nursing notes have been reviewed. PHYSICAL EXAM Vital Signs: 12/06/2016 23:03 BP: 123/70. HR: 87. RR: 16. O2 saturation: 95%. Temp: 98.7 F. Pain level now: 5/10. Have been reviewed. Appearance: Alert. ENT: Pharynx normal. Neck: Neck supple. CVS: Heart sounds normal. Respiratory: No respiratory distress. Breath sounds normal. Abdomen: Soft and nontender. Bowel sounds normal. No organomegaly. No mass. Back: Normal external inspection. No CVA tenderness. Skin: Skin warm and dry. Normal skin color. No rash. Normal skin turgor. Extremities: Extremities nontender. No calf tenderness. No lower extremity edema. LABS, X-RAYS, AND EKG Laboratory Tests: UA-Culture if indicated: (DOUGLAS: 12/06/2016 23:10) ( MsgRcvd 12/06/2016 23:40) Final results Test Result Flag Units (Reference) URINE COLOR YELLOW URINE APPEARANCE CLEAR URINE GLUCOSE NEGATIVE (NEGATIVE) URINE BILIRUBIN NEGATIVE (NEGATIVE) URINE KETONE NEGATIVE (NEGATIVE) URINE SPECIFIC GRAVITY <= 1.005 L (1.010-1.030) URINE PH 6.0 (5.0-8.0) URINE PROTEIN NEGATIVE (NEGATIVE) URINE UROBILINOGEN 0.2 EU/dL (0.2-1.0) URINE NITRITE NEGATIVE (NEGATIVE) URINE BLOOD NEGATIVE (NEGATIVE) URINE LEUK ESTERASE NEGATIVE (NEGATIVE) URINE RBC NONE SEEN rbc/hpf (0-1) URINE WBC 0-1 wbc/hpf (0-1) URINE EPITHELIAL CELLS 1-3 EPI/hpf (0-5) URINE BACTERIA TRACE (<1+) (NONE SEEN) URINE COMMENT CULT NOT INDICATED URINE CULTURES ARE SET-UP BASED ON THE FOLLOWING CRITERIA:POSITIVE NITRITEPOSITIVE LEUKOCYTE ESTERASEGREATER THAN 10 WHITE BLOOD CELLSMODERATE (2+) OR GREATER BACTERIA Urine: (DOUGLAS: 12/06/2016 23:10) ( MsgRcvd 12/06/2016 23:32) Final results Test Result Flag Units (Reference) URINE NEGATIVE . PROGRESS AND PROCEDURES Course of Care: Patient is stable. Patient/family counseled. Old medical records reviewed. Disposition: Discharged. Condition: stable. CLINICAL IMPRESSION Acute headache. Acute urinary tract infection. INSTRUCTIONS Drink plenty of fluids. Warnings: Further evaluation is necessary. GENERAL WARNINGS: Return or contact your physician immediately if your condition worsens or changes unexpectedly, if not improving as expected, or if other problems arise. Your Current Medications: CONTINUE TAKING THE FOLLOWING MEDICATIONS: Nitrofurantoin Oral : MCR 100 2 x daily. OTC Medications: Motrin (available over the counter): take according to label instructions. Tylenol (available over the counter): take according to label instructions. Understanding of the discharge instructions verbalized by patient. Follow-up with: [facility], , , [address] [facility], [place], Follow up in two days. Call for an appointment. (Electronically signed by Dereck Charles MD 12/07/2016 1:01)
--- NOTE | 2016-12-07 00:15 | ED NURSING NOTES ---
Clinical Report - Nurses [facility] [place] [address] [place] [address] 12/06/2016 22:59 Patient: EDVIN PADILLA TRIAGE Triage time 23:Dec 06 2016. Acuity: LEVEL 3. Chief Complaint: PELVIC PAIN. Alert. DANITZA COMA SCORE: Danitza Coma Scale: 15- eyes open spontaneously (4); best verbal response- oriented x 4 (5); best motor response- obeys commands (6). --23:15 Chevy Jenkins R.N. 23:03 12/06/16. BP: 123/70. HR: 87. RR: 16. O2 saturation: 95% on room air. Temp: 98.7 F. Pain level now: 5/10. Additional comments: Abdominal Pain. --23:15 Chevy Jenkins R.N. Weight: 113.3 kg stated. Height/Length: 67 inches Per Patient. BMI: 39.2. --23:06 Chevy Jenkins R.N. Medications Nitrofurantoin Oral MCR 100, 2 x daily. --23:09 Chevy Jenkins R.N. Allergies No Known Drug Allergy. --23:08 Chevy Jenkins R.N. Medication/allergy information source: the patient. --23:15 Chevy Jenkins R.N. History Arrived by private vehicle. Historian: patient. Accompanied by family. [facility] ( Abdominal Pain and BAUER. Seen here yesterday and diagnosed with a UTI and placed on an antibiotic.). This started today. Onset. (about 3 hours ago). She has had abdominal pain. 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 Symptoms did not improve after treatment. PAST MEDICAL HX: Immunizations: status is unknown. Last normal menstrual period was 4 weeks ago. Denies current . SOCIAL HX: Never smoker. No alcohol use or drug use. No infectious disease exposure. ABUSE ASSESSMENT: No report of abuse. FALL RISK ASSESSMENT: Fall risk assessment completed. No fall risk identified. NUTRITIONAL RISK ASSESSMENT: The nutritional risk assessment revealed no deficiencies. FUNCTIONAL ASSESSMENT: Functional assessment: no impairments noted. LEARNING NEEDS ASSESSMENT: The learning needs assessment revealed no barriers. SKIN INTEGRITY ASSESSMENT: Skin integrity risk assessment completed. No skin integrity risk identified. --23:15 Chevy Jenkins R.N. PROBLEMS: UTI - Urinary Tract Infection. Dysfunctional Uterine Bleeding. Influenza. Pelvic Pain. GI Bleeding. URI. LNMP - Last Normal Menstrual Period. Constipation. Abdominal Pain. . --23:10 Chevy Jenkins R.N. ADDITIONAL SURGERIES: Endoscopy. --23:10 Chevy Jenkins R.N. Interventions ID band on patient. To treatment room. --23:15 Chevy Jenkins R.N. PHYSICAL ASSESSMENT Ambulatory to room. GENERAL / NEURO / PSYCH: Alert. Oriented X 4. Appears in pain. HEENT: Mucous membranes are pink. RESPIRATORY: Respirations not labored. CVS: Normal heart rate and rhythm. Capillary refill less than 2 seconds. GI / : Bowel sounds within normal limits. SKIN: Skin is warm and dry. --23:15 Chevy Jenkins R.N. NURSING PROGRESS NOTES Patient gowned. Reassurance given to the patient. Patient identifiers checked. Call light placed in reach. Side rails up x 1. Bed placed in lowest position. Brakes of bed on. Patient ready for evaluation- chart flagged and ED physician notified. --23:15 Chevy Jenkins R.N. DISPOSITION / DISCHARGE 00:39 12/07/16. Departure time: 00:39 Dec 07 2016. Condition at departure: improved and stable. The goals identified in the patient's plan of care were met. No learning barriers present. Reviewed medication(s) (continue all meds). Patient verbalized understanding. Written instructions provided in [place]. The patient was discharged home and accompanied by family. She left the Emergency Department ambulatory and via private vehicle. Patient driving. --00:39 Anastasia Mendez R.N. 00:39 12/07/16. BP: 112/62. HR: 78. RR: 18. O2 saturation: 100%. Temp: 98.4 F. Pain level now 3/10. --00:39 Anastasia Mendez R.N. Locked/Released at 12/07/2016 0:40 by Anastasia Mendez R.N.
--- NOTE | 2016-12-07 00:15 | ED CLINICAL REPORT ---
Clinical Report - Physicians/Mid Levels [facility] [address] [place] [address] 12/06/2016 22:59 Patient: EDVIN PADILLA Time Seen: 23:10. Arrived- By private vehicle. Historian- patient. HISTORY OF PRESENT ILLNESS Chief Complaint: DYSURIA. This started several days ago and still present. It was gradual in onset and has been waxing/waning. The symptoms are described as mild. The patient has recently had irregular periods and had mild pain with urination. REVIEW OF SYSTEMS No calf pain, chest pain, cough, difficulty breathing or pedal edema. No palpitations. She has recently had irregular periods. She has had a mild global headache (today). All systems otherwise negative, except as recorded above. SOCIAL HISTORY Never smoker. No alcohol use or drug use. FAMILY HISTORY Denies family medical history. ADDITIONAL NOTES The nursing notes have been reviewed. PHYSICAL EXAM Vital Signs: 12/06/2016 23:03 BP: 123/70. HR: 87. RR: 16. O2 saturation: 95%. Temp: 98.7 F. Pain level now: 5/10. Have been reviewed. Appearance: Alert. ENT: Pharynx normal. Neck: Neck supple. CVS: Heart sounds normal. Respiratory: No respiratory distress. Breath sounds normal. Abdomen: Soft and nontender. Bowel sounds normal. No organomegaly. No mass. Back: Normal external inspection. No CVA tenderness. Skin: Skin warm and dry. Normal skin color. No rash. Normal skin turgor. Extremities: Extremities nontender. No calf tenderness. No lower extremity edema. LABS, X-RAYS, AND EKG Laboratory Tests: UA-Culture if indicated: (DOUGLAS: 12/06/2016 23:10) ( MsgRcvd 12/06/2016 23:40) Final results Test Result Flag Units (Reference) URINE COLOR YELLOW URINE APPEARANCE CLEAR URINE GLUCOSE NEGATIVE (NEGATIVE) URINE BILIRUBIN NEGATIVE (NEGATIVE) URINE KETONE NEGATIVE (NEGATIVE) URINE SPECIFIC GRAVITY <= 1.005 L (1.010-1.030) URINE PH 6.0 (5.0-8.0) URINE PROTEIN NEGATIVE (NEGATIVE) URINE UROBILINOGEN 0.2 EU/dL (0.2-1.0) URINE NITRITE NEGATIVE (NEGATIVE) URINE BLOOD NEGATIVE (NEGATIVE) URINE LEUK ESTERASE NEGATIVE (NEGATIVE) URINE RBC NONE SEEN rbc/hpf (0-1) URINE WBC 0-1 wbc/hpf (0-1) URINE EPITHELIAL CELLS 1-3 EPI/hpf (0-5) URINE BACTERIA TRACE (<1+) (NONE SEEN) URINE COMMENT CULT NOT INDICATED URINE CULTURES ARE SET-UP BASED ON THE FOLLOWING CRITERIA:POSITIVE NITRITEPOSITIVE LEUKOCYTE ESTERASEGREATER THAN 10 WHITE BLOOD CELLSMODERATE (2+) OR GREATER BACTERIA Urine: (DOUGLAS: 12/06/2016 23:10) ( MsgRcvd 12/06/2016 23:32) Final results Test Result Flag Units (Reference) URINE NEGATIVE . PROGRESS AND PROCEDURES Course of Care: Patient is stable. Patient/family counseled. Old medical records reviewed. Disposition: Discharged. Condition: stable. CLINICAL IMPRESSION Acute headache. Acute urinary tract infection. INSTRUCTIONS Drink plenty of fluids. Warnings: Further evaluation is necessary. GENERAL WARNINGS: Return or contact your physician immediately if your condition worsens or changes unexpectedly, if not improving as expected, or if other problems arise. Your Current Medications: CONTINUE TAKING THE FOLLOWING MEDICATIONS: Nitrofurantoin Oral : MCR 100 2 x daily. OTC Medications: Motrin (available over the counter): take according to label instructions. Tylenol (available over the counter): take according to label instructions. Understanding of the discharge instructions verbalized by patient. Follow-up with: [facility], , , [address] [facility], [place], Follow up in two days. Call for an appointment. (Electronically signed by Dereck Charles MD 12/07/2016 1:01)
--- NOTE | 2016-12-07 00:15 | ED ORDER SUMMARY ---
..... Patient: EDVIN PADILLA OrderSheet [facility] VisitID: [id number] [address] [place] [address] 26y, F Registration Date/Time: 12/06/2016 ORDER SHEET Weight: 113.3 kg (stated) Allergies: No Known Drug Allergy GENERAL ORDERS: UA-Culture if indicated Urgent (23:24 12/06/2016 Joe RUSSO) (23:25 [facility] [employer]) Urine Urgent (23:24 12/06/2016 Joe RUSSO) (23:25 [facility] [employer]) MEDICATION ORDERS: IV FLUIDS: ORDER SHEET NOTES: [Electronically signed by Anastasia Mendez R.N. (00:40 12/07/2016)] [Electronically signed by Dereck Charles MD (01:01 12/07/2016)] [Electronically locked/signed by Anastasia Mendez R.N. (00:40 12/07/2016)]
--- NOTE | 2016-12-07 00:15 | ED ORDER SUMMARY ---
..... Patient: EDVIN PADILLA OrderSheet [facility] VisitID: [id number] [address] [place] [address] 26y, F Registration Date/Time: 12/06/2016 ORDER SHEET Weight: 113.3 kg (stated) Allergies: No Known Drug Allergy GENERAL ORDERS: UA-Culture if indicated Urgent (23:24 12/06/2016 Joe RUSSO) (23:25 [facility] [employer]) Urine Urgent (23:24 12/06/2016 Joe RUSSO) (23:25 [facility] [employer]) MEDICATION ORDERS: IV FLUIDS: ORDER SHEET NOTES: [Electronically signed by Anastasia Mendez R.N. (00:40 12/07/2016)] [Electronically signed by Dereck Charles MD (01:01 12/07/2016)] [Electronically locked/signed by Anastasia Mendez R.N. (00:40 12/07/2016)]
--- NOTE | 2016-12-07 00:15 | ED NURSING NOTES ---
Clinical Report - [place] [address] 12/06/2016 22:59 Patient: EDVIN PADILLA TRIAGE Triage time 23:Dec 06 2016. Acuity: LEVEL 3. Chief Complaint: PELVIC PAIN. Alert. DANITZA COMA SCORE: Danitza Coma Scale: 15- eyes open spontaneously (4); best verbal response- oriented x 4 (5); best motor response- obeys commands (6). --23:15 Chevy Jenkins R.N. 23:03 12/06/16. BP: 123/70. HR: 87. RR: 16. O2 saturation: 95% on room air. Temp: 98.7 F. Pain level now: 5/10. Additional comments: Abdominal Pain. --23:15 Chevy Jenkins R.N. Weight: 113.3 kg stated. Height/Length: 67 inches Per Patient. BMI: 39.2. --23:06 Chevy Jenkins R.N. Medications Nitrofurantoin Oral MCR 100, 2 x daily. --23:09 Chevy Jenkins R.N. Allergies No Known Drug Allergy. --23:08 Chevy Jenkins R.N. Medication/allergy information source: the patient. --23:15 Chevy Jenkins R.N. History Arrived by private vehicle. Historian: patient. Accompan[facility] by family. [facility] ( Abdominal Pain and BAUER. Seen here yesterday and diagnosed with a UTI and placed on an antibiotic.). This started today. Onset. (about 3 hours ago). She has had abdominal pain. Treatment [employer]: Took Tylenol. Symptoms did not improve after treatment. PAST MEDICAL HX: Immunizations: status is unknown. Last normal menstrual period was 4 weeks ago. Denies current . SOCIAL HX: Never smoker. No alcohol use or drug use. No infectious disease exposure. ABUSE ASSESSMENT: No report of abuse. FALL RISK ASSESSMENT: Fall risk assessment completed. No fall risk identified. NUTRITIONAL RISK ASSESSMENT: The nutritional risk assessment revealed no deficiencies. FUNCTIONAL ASSESSMENT: Functional assessment: no impairments noted. LEARNING NEEDS ASSESSMENT: The learning needs assessment revealed no barriers. SKIN INTEGRITY ASSESSMENT: Skin integrity risk assessment completed. No skin integrity risk identified. --23:15 Chevy Jenkins R.N. PROBLEMS: UTI - Urinary Tract Infection. Dysfunctional Uterine Bleeding. Influenza. Pelvic Pain. GI Bleeding. URI. LNMP - Last Normal Menstrual Period. Constipation. Abdominal Pain. . --23:10 Chevy Jenkins R.N. ADDITIONAL SURGERIES: Endoscopy. --23:10 Chevy Jenkins R.N. Interventions ID band on patient. To treatment room. --23:15 Chevy Jenkins R.N. PHYSICAL ASSESSMENT Ambulatory to room. GENERAL / NEURO / PSYCH: Alert. Oriented X 4. Appears in pain. HEENT: Mucous membranes are pink. RESPIRATORY: Respirations not labored. CVS: Normal heart rate and rhythm. Capillary refill less than 2 seconds. GI / : Bowel sounds within normal limits. SKIN: Skin is warm and dry. --23:15 Chevy Jenkins R.N. NURSING PROGRESS NOTES Patient gowned. Reassurance given to the patient. Patient identifiers checked. Call light placed in reach. Side rails up x 1. Bed placed in lowest position. Brakes of bed on. Patient ready for evaluation- chart flagged and ED physician notified. --23:15 Chevy Jenkins R.N. DISPOSITION / DISCHARGE 00:39 12/07/16. Departure time: 00:39 Dec 07 2016. Condition at departure: improved and stable. The goals identified in the patient's plan of care were met. No learning barriers present. Reviewed medication(s) (continue all meds). Patient verbalized understanding. Written instructions provided in [place] Islander. The patient was discharged home and accompanied by family. She left the Emergency Department ambulatory and via private vehicle. Patient driving. --00:39 Anastasia Mendez R.N. 00:39 12/07/16. BP: 112/62. HR: 78. RR: 18. O2 saturation: 100%. Temp: 98.4 F. Pain level now 3/10. --00:39 Anastasia Mendez R.N. Locked/Released at 12/07/2016 0:40 by Anastasia Mendez R.N.
--- NOTE | 2016-12-07 01:02 | ED DISCHARGE INSTRUCTIONS ---
Patient: EDVIN PADILLA General Instructions [facility] VisitID: [id number] [place] [address] 26y, F Registration Date/Time: 12/06/2016 Acute headache. Acute urinary tract infection. INSTRUCTIONS Drink plenty of fluids. Warnings: Further evaluation is necessary. GENERAL WARNINGS: Return or contact your physician immediately if your condition worsens or changes unexpectedly, if not improving as expected, or if other problems arise. Your Current Medications: CONTINUE TAKING THE FOLLOWING MEDICATIONS: Nitrofurantoin Oral : MCR 100 2 x daily. OTC Medications: Motrin (available over the counter): take according to label instructions. Tylenol (available over the counter): take according to label instructions. Understanding of the discharge instructions verbalized by patient. Follow-up with: [facility], , , [address] [place] [address], , [place], Follow up in two days. Call for an appointment. ADDITIONAL INFORMATION Headache [Unspecified] The cause of your headache today is not clear, but it does not appear to be the sign of any serious illness. Under stress, some people tense the muscles of their shoulder, neck and scalp without knowing it. If this condition lasts long enough, a TENSION HEADACHE can occur. A MIGRAINE HEADACHE is caused by changes in blood flow to the brain. A migraine attack may be triggered by emotional stress, hormone changes during the menstrual cycle, oral contraceptives, alcohol use, certain foods containing tyramine, eye strain, weather changes, missing meals, lack of sleep or oversleeping. Other causes of headache include a viral illness with high fever, head injury with concussion, sinus, ear or throat infection, dental pain and TMJ (jaw joint) pain. More serious but less common causes of headache include stroke, brain hemorrhage, brain tumor, meningitis and encephalitis. Home Care: If you were given pain medicine for this headache, do not drive yourself home. Arrange for a ride, instead. When you get home, try to sleep. You should feel much better when you wake up. Apply heat to the back of your neck to relieve neck muscle spasm. Migraine headaches may respond best to an ice pack on the forehead or at the base of the skull. If you are having nausea or vomiting, follow a light diet until your headache is relieved. If you have a migraine type headache, use sunglasses when in the daylight or around bright indoor lighting until symptoms improve. Bright glaring light can worsen this kind of headache. Follow Up with your doctor if the headache is not better within the next 24 hours. If you have frequent headaches you should discuss a treatment plan with your primary care doctor. By being aware of the earliest signs of headache, and starting treatment right away, you may be able to stop the pain yourself. Get Prompt Medical Attention if any of the following occur: Worsening of your head pain or no improvement within 24 hours Repeated vomiting (unable to keep liquids down) Fever of 100.4F (38C) or higher, or as directed by your healthcare provider Stiff neck Extreme drowsiness, confusion or fainting Dizziness, vertigo (dizziness with spinning sensation) Weakness of an arm or leg or one side of the face Difficulty with speech or vision Bladder Infection,Female (Adult) A bladder infection ("cystitis" or "UTI") usually causes a constant urge to urinate and a burning when passing urine. Urine may be cloudy, smelly or dark. There may be pain in the lower abdomen. A bladder infection occurs when bacteria from the vaginal area enter the bladder opening (urethra). This can occur from sexual intercourse, wearing tight clothing, dehydration and other factors. Home Care: Drink lots of fluids (at least 6-8 glasses a day, unless you must restrict fluids for other medical reasons). This will force the medicine into your urinary system and flush the bacteria out of your body. Avoid sexual intercourse until your symptoms are gone. Avoid caffeine, alcohol and spicy foods. These can irritate the bladder. A bladder infection is treated with antibiotics. You may also be given Pyridium (generic = phenazopyridine) to reduce the burning sensation. This medicine will cause your urine to become a bright orange color. The orange urine may stain clothing. You may wear a pad or panty-liner to protect clothing. Preventing Future Infections: Always wipe from front to back after a bowel movement. Keep the genital area clean and dry. Drink plenty of fluids each day to avoid dehydration. Both sexual partners should wash before intercourse. Urinate right after intercourse to flush out the bladder. Wear cotton underwear and cotton-lined panty hose; avoid tight-fitting pants. If you are on control pills and are having frequent bladder infections, discuss with your doctor. Follow Up: Return to this facility or see your doctor if ALL symptoms are not gone after three days of treatment. Get Prompt Medical Attention if any of the following occur: Fever of 100.4F (38C) or higher, or as directed by your healthcare provider No improvement by the third day of treatment Increasing back or abdominal pain Repeated vomiting; unable to keep medicine down Weakness, dizziness or fainting Vaginal discharge Pain, redness or swelling in the labia (outer vaginal area) Ibuprofen Oral tablet What is this medicine? IBUPROFEN (eye BYOO proe fen) is a non-steroidal anti-inflammatory drug (NSAID). It is used for dental pain, fever, headaches or migraines, osteoarthritis, rheumatoid arthritis, or painful monthly periods. It can also relieve minor aches and pains caused by a cold, flu, or sore throat. How should I use this medicine? Take this medicine by mouth with a glass of water. Follow the directions on the prescription label. Take this medicine with food if your stomach gets upset. Try to not lie down for at least 10 minutes after you take the medicine. Take your medicine at regular intervals. Do not take your medicine more often than directed. A special MedGuide will be given to you by the pharmacist with each prescription and refill. Be sure to read this information carefully each time. Talk to your it quality assurance analyst regarding the use of this medicine in children. Special care may be needed. What side effects may I notice from receiving this medicine? Side effects that you should report to your doctor or health child care center administrator as soon as possible: allergic reactions like skin rash, itching or hives, swelling of the face, lips, or tongue black or bloody stools, blood in the urine or in vomit breathing problems changes in vision chest pain general ill feeling or flu-like symptoms nausea or vomiting redness, blistering, peeling or loosening of the skin, including inside the mouth slurred speech or weakness on one side of the body stomach pain unexplained weight gain or swelling unusually weak or tired yellowing of eyes or skin Side effects that usually do not require medical attention (report to your doctor or health child care center administrator if they continue or are bothersome): constipation or diarrhea dizziness gas or heartburn stomach upset What may interact with this medicine? Do not take this medicine with any of the following medications: cidofovir ketorolac methotrexate pemetrexed This medicine may also interact with the following medications: alcohol aspirin diuretics lithium other drugs for inflammation like prednisone warfarin What if I miss a dose? If you miss a dose, take it as soon as you can. If it is almost time for your next dose, take only that dose. Do not take double or extra doses. Where should I keep my medicine? Keep out of the reach of children. Store at room temperature between 15 and 30 degrees C (59 and 86 degrees F). Keep container tightly closed. Throw away any unused medicine after the expiration date. What should I tell my health care provider before I take this medicine? They need to know if you have any of these conditions: asthma cigarette smoker drink more than 3 alcohol containing drinks a day heart disease or circulation problems such as heart failure or leg edema (fluid retention) high blood pressure kidney disease liver disease stomach bleeding or ulcers an unusual or allergic reaction to ibuprofen, aspirin, other NSAIDS, other medicines, foods, dyes, or preservatives or trying to get breast-feeding What should I watch for while using this medicine? Tell your doctor or healthcare professional if your symptoms do not start to get better or if they get worse. This medicine does not prevent heart attack or stroke. In fact, this medicine may increase the chance of a heart attack or stroke. The chance may increase with longer use of this medicine and in people who have heart disease. If you take aspirin to prevent heart attack or stroke, talk with your doctor or health child care center administrator. Do not take other medicines that contain aspirin, ibuprofen, or naproxen with this medicine. Side effects such as stomach upset, nausea, or ulcers may be more likely to occur. Many medicines available without a prescription should not be taken with this medicine. This medicine can cause ulcers and bleeding in the stomach and intestines at any time during treatment. Ulcers and bleeding can happen without warning symptoms and can cause . To reduce your risk, do not smoke cigarettes or drink alcohol while you are taking this medicine. You may get drowsy or dizzy. Do not drive, use machinery, or do anything that needs mental alertness until you know how this medicine affects you. Do not stand or sit up quickly, especially if you are an older patient. This reduces the risk of dizzy or fainting spells. This medicine can cause you to bleed more easily. Try to avoid damage to your teeth and gums when you brush or floss your teeth. Acetaminophen Oral tablet What is this medicine? ACETAMINOPHEN (a set a TYSHAWN wiley fen) is a pain reliever. It is used to treat mild pain and fever. How should I use this medicine? Take this medicine by mouth with a glass of water. Follow the directions on the package or prescription label. Take your medicine at regular intervals. Do not take your medicine more often than directed. Talk to your it quality assurance analyst regarding the use of this medicine in children. While this drug may be prescribed for children as young as 6 years of age for selected conditions, precautions do apply. What side effects may I notice from receiving this medicine? Side effects that you should report to your doctor or health child care center administrator as soon as possible: allergic reactions like skin rash, itching or hives, swelling of the face, lips, or tongue breathing problems fever or sore throat redness, blistering, peeling or loosening of the skin, including inside the mouth trouble passing urine or change in the amount of urine unusual bleeding or bruising unusually weak or tired yellowing of the eyes or skin Side effects that usually do not require medical attention (report to your doctor or health child care center administrator if they continue or are bothersome): headache nausea, stomach upset What may interact with this medicine? alcohol imatinib isoniazid other medicines with acetaminophen What if I miss a dose? If you miss a dose, take it as soon as you can. If it is almost time for your next dose, take only that dose. Do not take double or extra doses. Where should I keep my medicine? Keep out of reach of children. Store at room temperature between 20 and 25 degrees C (68 and 77 degrees F). Protect from moisture and heat. Throw away any unused medicine after the expiration date. What should I tell my health care provider before I take this medicine? They need to know if you have any of these conditions: if you frequently drink alcohol containing drinks liver disease an unusual or allergic reaction to acetaminophen, other medicines, foods, dyes or preservatives or trying to get breast-feeding What should I watch for while using this medicine? Tell your doctor or health child care center administrator if the pain lasts more than 10 days (5 days for children), if it gets worse, or if there is a new or different kind of pain. Also, check with your doctor if a fever lasts for more than 3 days. Do not take other medicines that contain acetaminophen with this medicine. Always read labels carefully. If you have questions, ask your doctor or pharmacist. If you take too much acetaminophen get medical help right away. Too much acetaminophen can be very dangerous and cause liver damage. Even if you do not have symptoms, it is important to get help right away. You have been given the following additional information: Headache, Unspecified Bladder Infection, Female (Adult) Ibuprofen Oral tablet Acetaminophen Oral tablet (Electronically signed by Dereck Charles MD 12/07/2016 1:01)
--- NOTE | 2016-12-07 01:02 | ED MED RECONCILIATION SUMMARY ---
Patient: EDVIN PADILLA Medication Reconciliation Report [facility] VisitID: [id number] [address] [place] [address] 26y, F Registration Date/Time: 12/06/2016 Weight: 113.3 kg Height/Length: 67 in. BMI: 39.2 ALLERGIES: No Known Drug Allergy The patient's Home Medications are listed below: CONTINUE TAKING THE FOLLOWING MEDICATIONS: Nitrofurantoin Oral MCR 100, 2 x daily The source(s) of the original Home Medication information: patient The following Medications were given to the patient in the Emergency Department: None. The following Medications were prescribed to the patient: Motrin (available over the counter): take according to label instructions. -- Dereck Charles MD Tylenol (available over the counter): take according to label instructions. -- Dereck Charles MD
--- NOTE | 2016-12-07 01:02 | ED MED RECONCILIATION SUMMARY ---
Patient: EDVIN PADILLA Medication Reconciliation Report [facility] VisitID: [id number] [address] [place] [address] 26y, F Registration Date/Time: 12/06/2016 Weight: 113.3 kg Height/Length: 67 in. BMI: 39.2 ALLERGIES: No Known Drug Allergy The patient's Home Medications are listed below: CONTINUE TAKING THE FOLLOWING MEDICATIONS: Nitrofurantoin Oral MCR 100, 2 x daily The source(s) of the original Home Medication information: patient The following Medications were given to the patient in the Emergency Department: None. The following Medications were prescribed to the patient: Motrin (available over the counter): take according to label instructions. -- Dereck Charles MD Tylenol (available over the counter): take according to label instructions. -- Dereck Charles MD
--- NOTE | 2016-12-07 01:02 | ED MAR SUMMARY ---
..... Medication Administration Record [facility] [address] [place], [place] [id number] Patient: EDVIN PADILLA Visit ID: [id number] 26y, F Weight: 113.3 kg Height/Length: 67 in BMI: 39.2 ALLERGIES: No Known Drug Allergy
--- NOTE | 2016-12-07 01:02 | ED MAR SUMMARY ---
..... Medication Administration Record [facility] [address] [place], [place] [id number] Patient: EDVIN PADILLA Visit ID: [id number] 26y, F Weight: 113.3 kg Height/Length: 67 in BMI: 39.2 ALLERGIES: No Known Drug Allergy
== END 2016-12-07 00:40 | disposition home or self-care (01) ==
LOC: ED SRH 22:58
DX: N39.0 Urinary tract infection, site not specified (principal); R51 Headache
CPT/HCPCS: 90004; 93070

== ENCOUNTER 2017-01-08 20:57 | Emergency (ER) | payer OTHER ==
--- NOTE | 2017-01-09 02:20 | ED CLINICAL REPORT ---
Clinical Report - Physicians/Mid Levels [facility] [address] [place] [address] 01/08/2017 20:57 Patient: EDVIN BELL Time Seen: 22:32 Apr 2016. Arrived- By private vehicle. Historian- patient. CPT: ER phys charges level 4 (#[id number]). HISTORY OF PRESENT ILLNESS Chief Complaint: DIZZINESS and WEAKNESS. ( BAUER). Severity described as moderate at its maximum. When seen in the E.D., severity described as moderate. Modifying factors- relieved by nothing. Not worsened by anything. Described as feeling weak all over. 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 It was gradual in onset and has been constant. The patient has had nausea. No vomiting. Similar symptoms previously: None. Recent medical care: Not recently seen/assessed. REVIEW OF SYSTEMS The patient has had a headache and weakness. No double vision, fainting episodes, head injury, chest pain or palpitations. No black stools, abnormal vaginal bleeding, fever, sore throat or cough. No difficulty breathing, abdominal pain, diarrhea, difficulty with urination or skin rash. No enlarged lymph nodes or chills. No difficulty walking. All systems otherwise negative, except as recorded above. PAST HISTORY See nurses notes. Medications: None. Allergies: No Known Drug Allergy. SOCIAL HISTORY Never smoker. No alcohol use or drug use. ADDITIONAL NOTES The nursing notes have been reviewed. PHYSICAL EXAM Vital Signs: 01/08/2017 22:08 BP: 108/66. HR: 75. RR: 18. O2 saturation: 95%. Temp: 98.3 F. Pain level now: 6/10. Appearance: Alert. No acute distress. Eyes: No nystagmus. Extraocular movements normal. ENT: Normal ENT inspection. TM's normal. Dry mucous membranes present. Pharynx normal. Neck: Normal inspection. Neck supple. CVS: Normal heart rate and rhythm. Heart sounds normal. Pulses normal. Respiratory: No respiratory distress. Breath sounds normal. Abdomen: Soft and nontender. No organomegaly. Back: Normal inspection. Skin: Skin warm. Normal skin color. No rash. Extremities: Extremities exhibit normal ROM. No lower extremity edema. Neuro: Alert. Oriented X 3. Mood/affect normal. Speech normal. Cranial nerves normal (as tested). No cerebellar findings. No motor deficit. No sensory deficit. Reflexes normal. LABS, X-RAYS, AND EKG Laboratory Tests: UA-Culture if indicated: (DOUGLAS: 01/08/2017 22:13) ( [facility] 01/08/2017 22:42) Final results Test Result Flag Units (Reference) URINE COLOR YELLOW URINE APPEARANCE CLEAR URINE GLUCOSE NEGATIVE (NEGATIVE) URINE BILIRUBIN NEGATIVE (NEGATIVE) URINE KETONE NEGATIVE (NEGATIVE) URINE SPECIFIC GRAVITY 1.010 (1.010-1.030) URINE PH 6.0 (5.0-8.0) URINE PROTEIN NEGATIVE (NEGATIVE) URINE UROBILINOGEN 0.2 EU/dL (0.2-1.0) URINE NITRITE NEGATIVE (NEGATIVE) URINE BLOOD 3+ (NEGATIVE) URINE LEUK ESTERASE NEGATIVE (NEGATIVE) URINE RBC NONE SEEN rbc/hpf (0-1) URINE WBC RARE wbc/hpf (0-1) URINE EPITHELIAL CELLS 1-3 EPI/hpf (0-5) URINE BACTERIA TRACE (<1+) (NONE SEEN) URINE COMMENT CULT NOT INDICATED 1-3 SODIUM URATE CRYSTALS.URINE CULTURES ARE SET-UP BASED ON THE FOLLOWING CRITERIA:POSITIVE NITRITEPOSITIVE LEUKOCYTE ESTERASEGREATER THAN 10 WHITE BLOOD CELLSMODERATE (2+) OR GREATER BACTERIA Urine: (DOUGLAS: 01/08/2017 22:13) ( [facility] 01/08/2017 22:34) Final results Test Result Flag Units (Reference) URINE NEGATIVE CBC w Diff: (DOUGLAS: 01/08/2017 00:08) ( [facility] 01/09/2017 00:21) Final results Test Result Flag Units (Reference) WHITE BLOOD COUNT 10.6 K/uL (4.5-11.5) RED BLOOD COUNT 4.79 M/uL (4.00-5.20) HEMOGLOBIN 13.2 gm/dL (12.0-16.0) HEMATOCRIT 39.6 % (36.0-46.0) MEAN CELL VOLUME 83 fL (80-100) MEAN CORPUSCULAR HGB 28 pg (26-34) MEAN CORPUSCULAR HGB CONC 34 g/dL (31-37) RED CELL DISTRIBUTION WIDTH 13.4 % (11.6-14.8) PLATELET COUNT 281 K/uL (150-400) NEUTROPHIL % 73.2 % (50-75) LYMPH % 21.4 L % (25-40) MONO % 4.7 % (3-14) EOSINOPHIL % 0.5 % (0-4) BASOPHIL % 0.2 % (0-2) [id number]: (DOUGLAS: 01/08/2017 00:08) ( MsgRcvd 01/09/2017 01:32) Final results Test Result Flag Units (Reference) PROCALCITONIN <0.5 ng/mL (0-0.5) PCT Concentration: Interpretation : Risk/option for action PCT <=0.5 ng/mL : Systemic : Low risk forinfection(sepsis): progression to severeis not likely. : systemic infection.Local bacterial : CAUTION-PCT levelsinfection is : below 0.5 ng/mL do notpossible. : exclude an infection,because localizedinfections (withoutsystemic signs) may beassociated with suchlow levels. If PCT ismeasured very earlyafter a bacterialchallenge (usually <6hours), these valuesmay still be low. Inthis case PCT shouldbe re-assessed 6-24hours later. PCT >0.5 and : Systemic infection: Moderate risk for<= 2 ng/mL : (sepsis) is : progression to severepossible, but : systemic infection.other conditions : The patient should beare known to : closely monitoredelevate PCT. : both clinically andby re-assessing PCTwithin 6-24 hours. PCT > 2 ng/mL : Systemic infection: High risk for(sepsis) is likely: progression to severeunless other : systemic infection.causes are known. : PCT >= 10 ng/mL : Important systemic: High likelihood ofinflammatory : severe sepsis orresponse, almost : septic shock.exclusively due to:severe bacterial :sepsis or septic :shock. : CMP: (DOUGLAS: 01/08/2017 00:08) ( MsgRcvd 01/09/2017 00:50) Final results Test Result Flag Units (Reference) GLUCOSE 111 H mg/dL (70-110) BUN 10 mg/dL (7-18) CREATININE 0.6 mg/dL (0.6-1.3) Estimated GFR >60 mL/min Estimated GFR- >60 mL/min Note: Persistent reduction over 3 months in eGFR<60 mL/min/1.73 m2 defines CKD. Patients with eGFR values>=60 mL/min/1.73 m2 may also have CKD if evidence ofpersistent proteinuria. Additional information may be foundat www.kidney.org. SODIUM 141 mmol/L (136-145) POTASSIUM 3.9 mmol/L (3.5-5.1) CHLORIDE 106 mmol/L (98-107) CARBON DIOXIDE 25 mmol/L (21-32) CALCIUM 9.4 mg/dL (8.5-10.1) TOTAL PROTEIN 7.8 g/dL (6.4-8.2) ALBUMIN 3.8 g/dL (3.3-5.0) BILIRUBIN, TOTAL 0.7 mg/dL (0.0-1.0) ALKALINE PHOSPHATASE 60 U/L (46-116) AST (SGOT) 17 U/L (15-37) ALT (SGPT) 44 U/L (12-78) THYROID STIMULATING HORMONE 1.175 uIU/mL (0.34-3.74) C-REACTIVE PROTEIN 1.0 H mg/dL (0.0-0.9) . PROGRESS AND PROCEDURES Course of Care: IV NS Feels much better after the IV fluids. She had mild orhthostatic changes. States she recently stopped al caffeine and that may be part of the reason she feels weak. Patient/family counseled. Disposition: Discharged. Condition: stable and improved. CLINICAL IMPRESSION Dizziness , weakness and BAUER due to volume depletion. INSTRUCTIONS No strenuous activity. Drink plenty of fluids. Warnings: Further evaluation is necessary. GENERAL WARNINGS: Return or contact your physician immediately if your condition worsens or changes unexpectedly, if not improving as expected, or if other problems arise. Follow-up: Follow up with your doctor in two days. Call for an appointment. Understanding of the discharge instructions verbalized by patient. (Electronically signed by Destin Wallace MD 01/16/2017 1:20)
--- NOTE | 2017-01-09 02:20 | ED ORDER SUMMARY ---
..... Patient: EDVIN BELL OrderSheet [facility] VisitID: [id number] [place] [address] 26y, F Registration Date/Time: 01/08/2017 ORDER SHEET Weight: 113.3 kg (stated) Allergies: No Known Drug Allergy GENERAL ORDERS: UA-Culture if indicated Urgent (22:22 01/08/2017 CBradburn R.N. per protocol) (Ack 22:23 SRedmond) (22:25 CBradburn R.N.) Urine Urgent (22:22 01/08/2017 CBradburn R.N. per protocol) (Ack 22:23 SRedmond) (22:25 CBradburn R.N.) CBC w Diff Urgent (22:50 01/08/2017 Juju RUSSO) (Ack 23:02 SRedmond) (0:08 CBradburn R.N.) CMP Urgent (22:50 01/08/2017 Juju RUSSO) (Ack 23:02 SRedmond) (0:08 CBradburn R.N.) TSH Urgent (22:50 01/08/2017 Juju RUSSO) (Ack 23:02 SRedmond) (0:08 CBradburn R.N.) CRP Urgent (22:50 01/08/2017 Juju RUSSO) (Ack 23:02 SRedmond) (0:08 CBradburn R.N.) PCT (Procalcitonin) Urgent (22:50 01/08/2017 Juju RUSSO) (Ack 23:02 SRedmond) (0:08 CBradburn R.N.) - (orthostatics before IV fluids.) (22:50 01/08/2017 Juju RUSSO) (Ack 22:59 SRedmond) (0:05 CBradburn R.N.) MEDICATION ORDERS: IV FLUIDS: IV NS : initial bolus 1000 mL (1000 mL/hr), then 500 mL/hr for 2h (NOW); Routine (22:50 01/08/2017 Juju RUSSO) (Ack 0:04 CBradburn R.N.) (0:10 CBradburn R.N.) ORDER SHEET NOTES: [Electronically signed by Julienne Barros R.N. (03:17 01/09/2017)] [Electronically signed by Julienne Barros R.N. (03:18 01/09/2017)] [Electronically signed by Destin Wallace MD (01:20 01/16/2017)] [Electronically locked/signed by Julienne Barros R.N. (03:17 01/09/2017)]
--- NOTE | 2017-01-09 02:20 | ED CLINICAL REPORT ---
Clinical Report - Physicians/Mid Levels [facility] [address] [place] [address] 01/08/2017 20:57 Patient: EDVIN BELL Time Seen: 22:32 Apr 2016. Arrived- By private vehicle. Historian- patient. CPT: ER phys charges level 4 (#[id number]). HISTORY OF PRESENT ILLNESS Chief Complaint: DIZZINESS and WEAKNESS. ( BAUER). Severity described as moderate at its maximum. When seen in the E.D., severity described as moderate. Modifying factors- relieved by nothing. Not worsened by anything. Described as feeling weak all over. 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 It was gradual in onset and has been constant. The patient has had nausea. No vomiting. Similar symptoms previously: None. Recent medical care: Not recently seen/assessed. REVIEW OF SYSTEMS The patient has had a headache and weakness. No double vision, fainting episodes, head injury, chest pain or palpitations. No black stools, abnormal vaginal bleeding, fever, sore throat or cough. No difficulty breathing, abdominal pain, diarrhea, difficulty with urination or skin rash. No enlarged lymph nodes or chills. No difficulty walking. All systems otherwise negative, except as recorded above. PAST HISTORY See nurses notes. Medications: None. Allergies: No Known Drug Allergy. SOCIAL HISTORY Never smoker. No alcohol use or drug use. ADDITIONAL NOTES The nursing notes have been reviewed. PHYSICAL EXAM Vital Signs: 01/08/2017 22:08 BP: 108/66. HR: 75. RR: 18. O2 saturation: 95%. Temp: 98.3 F. Pain level now: 6/10. Appearance: Alert. No acute distress. Eyes: No nystagmus. Extraocular movements normal. ENT: Normal ENT inspection. TM's normal. Dry mucous membranes present. Pharynx normal. Neck: Normal inspection. Neck supple. CVS: Normal heart rate and rhythm. Heart sounds normal. Pulses normal. Respiratory: No respiratory distress. Breath sounds normal. Abdomen: Soft and nontender. No organomegaly. Back: Normal inspection. Skin: Skin warm. Normal skin color. No rash. Extremities: Extremities exhibit normal ROM. No lower extremity edema. Neuro: Alert. Oriented X 3. Mood/affect normal. Speech normal. Cranial nerves normal (as tested). No cerebellar findings. No motor deficit. No sensory deficit. Reflexes normal. LABS, X-RAYS, AND EKG Laboratory Tests: UA-Culture if indicated: (DOUGLAS: 01/08/2017 22:13) ( [facility] 01/08/2017 22:42) Final results Test Result Flag Units (Reference) URINE COLOR YELLOW URINE APPEARANCE CLEAR URINE GLUCOSE NEGATIVE (NEGATIVE) URINE BILIRUBIN NEGATIVE (NEGATIVE) URINE KETONE NEGATIVE (NEGATIVE) URINE SPECIFIC GRAVITY 1.010 (1.010-1.030) URINE PH 6.0 (5.0-8.0) URINE PROTEIN NEGATIVE (NEGATIVE) URINE UROBILINOGEN 0.2 EU/dL (0.2-1.0) URINE NITRITE NEGATIVE (NEGATIVE) URINE BLOOD 3+ (NEGATIVE) URINE LEUK ESTERASE NEGATIVE (NEGATIVE) URINE RBC NONE SEEN rbc/hpf (0-1) URINE WBC RARE wbc/hpf (0-1) URINE EPITHELIAL CELLS 1-3 EPI/hpf (0-5) URINE BACTERIA TRACE (<1+) (NONE SEEN) URINE COMMENT CULT NOT INDICATED 1-3 SODIUM URATE CRYSTALS.URINE CULTURES ARE SET-UP BASED ON THE FOLLOWING CRITERIA:POSITIVE NITRITEPOSITIVE LEUKOCYTE ESTERASEGREATER THAN 10 WHITE BLOOD CELLSMODERATE (2+) OR GREATER BACTERIA Urine: (DOUGLAS: 01/08/2017 22:13) ( [facility] 01/08/2017 22:34) Final results Test Result Flag Units (Reference) URINE NEGATIVE CBC w Diff: (DOUGLAS: 01/08/2017 00:08) ( [facility] 01/09/2017 00:21) Final results Test Result Flag Units (Reference) WHITE BLOOD COUNT 10.6 K/uL (4.5-11.5) RED BLOOD COUNT 4.79 M/uL (4.00-5.20) HEMOGLOBIN 13.2 gm/dL (12.0-16.0) HEMATOCRIT 39.6 % (36.0-46.0) MEAN CELL VOLUME 83 fL (80-100) MEAN CORPUSCULAR HGB 28 pg (26-34) MEAN CORPUSCULAR HGB CONC 34 g/dL (31-37) RED CELL DISTRIBUTION WIDTH 13.4 % (11.6-14.8) PLATELET COUNT 281 K/uL (150-400) NEUTROPHIL % 73.2 % (50-75) LYMPH % 21.4 L % (25-40) MONO % 4.7 % (3-14) EOSINOPHIL % 0.5 % (0-4) BASOPHIL % 0.2 % (0-2) [id number]: (DOUGLAS: 01/08/2017 00:08) ( MsgRcvd 01/09/2017 01:32) Final results Test Result Flag Units (Reference) PROCALCITONIN <0.5 ng/mL (0-0.5) PCT Concentration: Interpretation : Risk/option for action PCT <=0.5 ng/mL : Systemic : Low risk forinfection(sepsis): progression to severeis not likely. : systemic infection.Local bacterial : CAUTION-PCT levelsinfection is : below 0.5 ng/mL do notpossible. : exclude an infection,because localizedinfections (withoutsystemic signs) may beassociated with suchlow levels. If PCT ismeasured very earlyafter a bacterialchallenge (usually <6hours), these valuesmay still be low. Inthis case PCT shouldbe re-assessed 6-24hours later. PCT >0.5 and : Systemic infection: Moderate risk for<= 2 ng/mL : (sepsis) is : progression to severepossible, but : systemic infection.other conditions : The patient should beare known to : closely monitoredelevate PCT. : both clinically andby re-assessing PCTwithin 6-24 hours. PCT > 2 ng/mL : Systemic infection: High risk for(sepsis) is likely: progression to severeunless other : systemic infection.causes are known. : PCT >= 10 ng/mL : Important systemic: High likelihood ofinflammatory : severe sepsis orresponse, almost : septic shock.exclusively due to:severe bacterial :sepsis or septic :shock. : CMP: (DOUGLAS: 01/08/2017 00:08) ( MsgRcvd 01/09/2017 00:50) Final results Test Result Flag Units (Reference) GLUCOSE 111 H mg/dL (70-110) BUN 10 mg/dL (7-18) CREATININE 0.6 mg/dL (0.6-1.3) Estimated GFR >60 mL/min Estimated GFR- >60 mL/min Note: Persistent reduction over 3 months in eGFR<60 mL/min/1.73 m2 defines CKD. Patients with eGFR values>=60 mL/min/1.73 m2 may also have CKD if evidence ofpersistent proteinuria. Additional information may be foundat www.kidney.org. SODIUM 141 mmol/L (136-145) POTASSIUM 3.9 mmol/L (3.5-5.1) CHLORIDE 106 mmol/L (98-107) CARBON DIOXIDE 25 mmol/L (21-32) CALCIUM 9.4 mg/dL (8.5-10.1) TOTAL PROTEIN 7.8 g/dL (6.4-8.2) ALBUMIN 3.8 g/dL (3.3-5.0) BILIRUBIN, TOTAL 0.7 mg/dL (0.0-1.0) ALKALINE PHOSPHATASE 60 U/L (46-116) AST (SGOT) 17 U/L (15-37) ALT (SGPT) 44 U/L (12-78) THYROID STIMULATING HORMONE 1.175 uIU/mL (0.34-3.74) C-REACTIVE PROTEIN 1.0 H mg/dL (0.0-0.9) . PROGRESS AND PROCEDURES Course of Care: IV NS Feels much better after the IV fluids. She had mild orhthostatic changes. States she recently stopped al caffeine and that may be part of the reason she feels weak. Patient/family counseled. Disposition: Discharged. Condition: stable and improved. CLINICAL IMPRESSION Dizziness , weakness and BAUER due to volume depletion. INSTRUCTIONS No strenuous activity. Drink plenty of fluids. Warnings: Further evaluation is necessary. GENERAL WARNINGS: Return or contact your physician immediately if your condition worsens or changes unexpectedly, if not improving as expected, or if other problems arise. Follow-up: Follow up with your doctor in two days. Call for an appointment. Understanding of the discharge instructions verbalized by patient. (Electronically signed by Destin Wallace MD 01/16/2017 1:20)
--- NOTE | 2017-01-09 02:20 | ED NURSING NOTES ---
Clinical Report - Nurses [facility] [address] [place] [address] 01/08/2017 20:57 [id number] TRI[facility] Triage time 22:08. Chief Complaint: HEADACHE and WEAKNESS and DIZZINESS. --22:14 Julienne Barros R.N. 22:08 01/08/17. BP: 108/66 (regular adult cuff) taken on the left arm, while lying. HR: 75 (regular, normal rate and strong). RR: 18. O2 saturation: 95% on room air. Temp: 98.3 F (oral). Pain level now: 02/24. --22:14 Julienne Barros R.N. Weight: 113.3 kg stated. Height/Length: 66 inches Per Patient. BMI: 40.3. --22:12 Julienne Barros R.N. Medications None. --22:10 Julienne Barros R.N. Allergies No Known Drug Allergy. --22:10 Julienne Barros R.N. History Arrived by private vehicle. Historian: patient. Accompanied by family. This started 5 days ago. Onset was gradual. Symptoms still present. ( pt reports N/D denies vomiting, for 5 days worse today with headache). She has had moderate nausea (5 days). She has had constant, generalized weakness. PAST MEDICAL HX: Immunizations: up-to-date. Last normal menstrual period now. 3. Para 2. No contraception. Denies current . SOCIAL HX: Never smoker. No alcohol use or drug use. FALL RISK ASSESSMENT: Fall risk assessment completed. No fall risk identified. --22:14 Julienne Barros R.N. Interventions ID band on patient. --22:14 Julienne Barros R.N. PHYSICAL ASSESSMENT GENERAL / NEURO / PSYCH: Alert. Oriented X 4. Appears in no acute distress. Speech within normal limits. HEENT: Pupils equal, round and reactive to light. RESPIRATORY: Respirations not labored. CVS: Capillary refill less than 2 seconds. GI / : Abdomen soft. SKIN: Skin is dry. --22:14 Julienne Barros R.N. Ambulatory to room. --22:14 Julienne Barros R.N. NURSING PROGRESS NOTES Two patient identifiers checked. Call light placed in reach. Side rails up x 1. Bed placed in lowest position. Brakes of bed on. --22:14 Julienne Barros R.N. Patient ID band checked for patient name and birthdate: patient confirmed. Instructions provided to collect clean catch urine and patient verbalized understanding urine collected with return of yellow-colored clear urine; sample sent to lab for urinalysis. Specimen labeled in the presence of the patient. --22:15 Julienne Barros R.N. Patient ready for evaluation- chart flagged. --22:15 Julienne Barros R.N. 00:08 01/09/2017 Site #1 started via IV in the right hand with an 20g angiocath, with aseptic technique and good blood return; one attempt. Blood drawn: rainbow set. Labeled in the presence of the patient and sent to the lab. Saline lock flushed with 10 mL saline. --00:09 Julienne Barros R.N. 00:09 01/09/2017 Started bag #1 1000 mL IV Fluids IV NS (Saline); bolus of 1000 mL wide open via site #1. Allergies verified and confirmed 5 rights. IV patency established. IV site checked: no pain, redness, or swelling. IV flushed thoroughly pre- and post-medication administration. --00:10 Julienne Barros R.N. 00:01/09/17. BP: 129/67 taken while lying. HR: 91 (regular and normal rate). RR: 18. O2 saturation: deferred. Temp: deferred. --00:15 Julienne Barros R.N. 00:02 01/09/17. BP: 119/73 taken while sitting. HR: 75. RR: 18. O2 saturation: deferred. Temp: deferred. --00:16 Julienne Barros R.N. 00:04 01/09/17. BP: 118/71 taken while standing. HR: 91. RR: 18. --00:18 Julienne Barros R.N. GENERAL / NEURO / PSYCH: Alert. Oriented X 4. HEENT: Pupils equal, round and reactive to light. RESPIRATORY: No respiratory distress. SKIN: Skin is warm. Two patient identifiers checked. Call light placed in reach. Side rails up x 1. Bed placed in lowest position. Brakes of bed on. --00:18 Julienne Barros R.N. 02:50 01/09/2017 IV Fluids IV NS Discontinued: bag #1 completed upon discharge. Total amount infused: 1000 mL. IV patency established. IV site checked: no pain, redness, or swelling. IV flushed thoroughly. --03:02 Julienne Barros R.N. DISPOSITION / DISCHARGE 02:56 01/09/2017 Site #1 removed upon discharge. Catheter intact. Manual pressure and bandage applied. --03:13 Julienne Barros R.N. Departure time: 0256. Condition at departure: improved and stable. No learning barriers present. Discharge instructions provided and reviewed with the patient. Work note given. Patient verbalized understanding. Written instructions provided in German. The patient was discharged by the physician. She was discharged home and accompanied by parent. She left the Emergency Department ambulatory and via private vehicle. Parent driving. --03:16 Julienne Barros R.N. 03:12 01/09/17. BP: 107/67 taken on the left arm, while lying. HR: 69. RR: 18. O2 saturation: 99% on room air. Temp: deferred. Pain level now: 0/10. --03:16 Julienne Barros R.N. Locked/Released at 01/09/2017 3:18 by Julienne Barros R.N.
--- NOTE | 2017-01-09 02:20 | ED ORDER SUMMARY ---
..... Patient: EDVIN BELL OrderSheet [facility] VisitID: [id number] [place] [address] 26y, F Registration Date/Time: 01/08/2017 ORDER SHEET Weight: 113.3 kg (stated) Allergies: No Known Drug Allergy GENERAL ORDERS: UA-Culture if indicated Urgent (22:22 01/08/2017 CBradburn R.N. per protocol) (Ack 22:23 SRedmond) (22:25 CBradburn R.N.) Urine Urgent (22:22 01/08/2017 CBradburn R.N. per protocol) (Ack 22:23 SRedmond) (22:25 CBradburn R.N.) CBC w Diff Urgent (22:50 01/08/2017 Juju RUSSO) (Ack 23:02 SRedmond) (0:08 CBradburn R.N.) CMP Urgent (22:50 01/08/2017 Juju RUSSO) (Ack 23:02 SRedmond) (0:08 CBradburn R.N.) TSH Urgent (22:50 01/08/2017 Juju RUSSO) (Ack 23:02 SRedmond) (0:08 CBradburn R.N.) CRP Urgent (22:50 01/08/2017 Juju RUSSO) (Ack 23:02 SRedmond) (0:08 CBradburn R.N.) PCT (Procalcitonin) Urgent (22:50 01/08/2017 Juju RUSSO) (Ack 23:02 SRedmond) (0:08 CBradburn R.N.) - (orthostatics before IV fluids.) (22:50 01/08/2017 Juju RUSSO) (Ack 22:59 SRedmond) (0:05 CBradburn R.N.) MEDICATION ORDERS: IV FLUIDS: IV NS : initial bolus 1000 mL (1000 mL/hr), then 500 mL/hr for 2h (NOW); Routine (22:50 01/08/2017 Juju RUSSO) (Ack 0:04 CBradburn R.N.) (0:10 CBradburn R.N.) ORDER SHEET NOTES: [Electronically signed by Julienne Barros R.N. (03:17 01/09/2017)] [Electronically signed by Julienne Barros R.N. (03:18 01/09/2017)] [Electronically signed by Destin Wallace MD (01:20 01/16/2017)] [Electronically locked/signed by Julienne Barros R.N. (03:17 01/09/2017)]
--- NOTE | 2017-01-16 01:21 | ED DISCHARGE INSTRUCTIONS ---
Patient: EDVIN BELL General Instructions [facility] VisitID: [id number] [place] [address] 26y, F Registration Date/Time: 01/08/2017 Dizziness , weakness and BAUER due to volume depletion. INSTRUCTIONS No strenuous activity. Drink plenty of fluids. Warnings: Further evaluation is necessary. GENERAL WARNINGS: Return or contact your physician immediately if your condition worsens or changes unexpectedly, if not improving as expected, or if other problems arise. Follow-up: Follow up with your doctor in two days. Call for an appointment. Understanding of the discharge instructions verbalized by patient. No strenuous activity. (Electronically signed by Destin Wallace MD 01/16/2017 1:20)
--- NOTE | 2017-01-16 01:21 | ED MED RECONCILIATION SUMMARY ---
Patient: EDVIN BELL Medication Reconciliation Report [facility] VisitID: [id number] [address] [place] [address] 26y, F Registration Date/Time: 01/08/2017 Weight: 113.3 kg Height/Length: 66 in. BMI: 40.3 ALLERGIES: No Known Drug Allergy The patient's Home Medications are listed below: NONE. The source(s) of the original Home Medication information: Not obtained. The following Medications were given to the patient in the Emergency Department: IV NS IV Fluids bolus 1000 mL wide open, administered: 01/09/2017 12:09:00 AM The following Medications were prescribed to the patient: None.
--- NOTE | 2017-01-16 01:21 | ED MED RECONCILIATION SUMMARY ---
Patient: EDVIN BELL Medication Reconciliation Report [facility] VisitID: [id number] [address] [place] [address] 26y, F Registration Date/Time: 01/08/2017 Weight: 113.3 kg Height/Length: 66 in. BMI: 40.3 ALLERGIES: No Known Drug Allergy The patient's Home Medications are listed below: NONE. The source(s) of the original Home Medication information: Not obtained. The following Medications were given to the patient in the Emergency Department: IV NS IV Fluids bolus 1000 mL wide open, administered: 01/09/2017 12:09:00 AM The following Medications were prescribed to the patient: None.
--- NOTE | 2017-01-16 01:21 | ED MAR SUMMARY ---
..... Medication Administration Record [facility] [address] [place] [address] Patient: EDVIN BELL Visit ID: [id number] 26y, F Weight: 113.3 kg Height/Length: 66 in BMI: 40.3 ALLERGIES: No Known Drug Allergy Start 00:09 01/09/2017 Julienne Barros R.N., Stop 02:50 01/09/2017 Julienne Barros R.N. Medication Administered: IV NS (SALINE), Dose: IV Fluids, Bolus: 1000 mL wide open, Dispensed: 1000 mL bag, Site: #1 right hand. Medication Ordered: IV NS : initial bolus 1000 mL (1000 mL/hr), then 500 mL/hr for 2h (NOW); Routine.
--- NOTE | 2017-01-16 01:21 | ED DISCHARGE INSTRUCTIONS ---
Patient: EDVIN BELL General Instructions [facility] VisitID: [id number] [place] [address] 26y, F Registration Date/Time: 01/08/2017 Dizziness , weakness and BAUER due to volume depletion. INSTRUCTIONS No strenuous activity. Drink plenty of fluids. Warnings: Further evaluation is necessary. GENERAL WARNINGS: Return or contact your physician immediately if your condition worsens or changes unexpectedly, if not improving as expected, or if other problems arise. Follow-up: Follow up with your doctor in two days. Call for an appointment. Understanding of the discharge instructions verbalized by patient. No strenuous activity. (Electronically signed by Destin Wallace MD 01/16/2017 1:20)
--- NOTE | 2017-01-16 01:21 | ED MAR SUMMARY ---
..... Medication Administration Record [facility] [address] [place] [address] Patient: EDVIN BELL Visit ID: [id number] 26y, F Weight: 113.3 kg Height/Length: 66 in BMI: 40.3 ALLERGIES: No Known Drug Allergy Start 00:09 01/09/2017 Julienne Barros R.N., Stop 02:50 01/09/2017 Julienne Barros R.N. Medication Administered: IV NS (SALINE), Dose: IV Fluids, Bolus: 1000 mL wide open, Dispensed: 1000 mL bag, Site: #1 right hand. Medication Ordered: IV NS : initial bolus 1000 mL (1000 mL/hr), then 500 mL/hr for 2h (NOW); Routine.
== END 2017-01-09 02:56 | disposition home or self-care (01) ==
LOC: ED SRH 20:57
DX: R42 Dizziness and giddiness (principal); R53.1 Weakness; R51 Headache; E86.9 Volume depletion, unspecified
CPT/HCPCS: 90004; 90100; 91585; 93004; 93070; 93140; 95059

== ENCOUNTER 2017-01-24 19:05 | Emergency (ER) | payer OTHER ==
--- NOTE | 2017-01-24 19:52 | ED ORDER SUMMARY ---
..... Patient: EDVIN BELL OrderSheet [facility] VisitID: [id number] [address] [place] [address] 26y, F Registration Date/Time: 01/24/2017 ORDER SHEET Weight: 112.4 kg Allergies: No Known Drug Allergy GENERAL ORDERS: Culture, Strep Screen Urgent (19:25 01/24/2017 Calderon Alves.Felecia per protocol) (19:25 Claderon R.N.) MEDICATION ORDERS: IV FLUIDS: ORDER SHEET NOTES: [Electronically signed by Anita Altamirano R.N. (19:59 01/24/2017)] [Electronically signed by Destin Wallace MD (19:41 01/25/2017)] [Electronically locked/signed by Anita Altamirano R.N. (19:59 01/24/2017)]
--- NOTE | 2017-01-24 19:52 | ED CLINICAL REPORT ---
Clinical Report - Physicians/Mid Levels [facility] [address] [place] [address] 01/24/2017 19:05 [id number] Time Seen: 19:39 Jan 24 2017. Arrived- By private vehicle. Historian- patient. CPT: ER phys charges level 3 (#[id number]). HISTORY OF PRESENT ILLNESS Chief Complaint: SORE THROAT. 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 ( pt states her "salvia feels really thick). Reports enlarged lymph nodes. and is still present. Pain described as moderate. The patient has had a sore throat. No toothache or swollen jaw or face. (Possible strep throat exposure.). Similar symptoms previously: None. Recent medical care: Not recently seen/assessed. REVIEW OF SYSTEMS The patient has had fever. No eye discomfort, cough, difficulty breathing, chest pain or nausea. No diarrhea, abdominal pain, headache, joint pain or skin rash. No enlarged lymph nodes or vomiting. All systems otherwise negative, except as recorded above. PAST HISTORY Headache. UTI - Urinary Tract Infection. Dysfunctional Uterine Bleeding. Influenza. Pelvic Pain. GI Bleeding. URI. Abdominal Pain. Immunizations. --19:14 Desmond Woods ADDITIONAL SURGERIES: Endoscopy. Medications: None. Allergies: No Known Drug Allergy. SOCIAL HISTORY Never smoker. No alcohol use or drug use. ADDITIONAL NOTES The nursing notes have been reviewed. PHYSICAL EXAM Vital Signs: 01/24/2017 19:12 BP: 136/72. HR: 78. RR: 16. O2 saturation: 99%. Temp: 98.7 F. Pain level now: 8/10. Appearance: Alert. Patient in mild distress. Head: Normal external inspection. Eyes: Pupils equal, round and reactive to light. Conjunctivae and eyelids normal. ENT: Nose normal. Pharyngeal erythema. Right-sided tonsillar erythema. Left-sided tonsillar erythema. Lips normal. No trismus present. Uvula midline. Neck: Trachea midline. No adenopathy. CVS: Normal heart rate and rhythm. Heart sounds normal. Pulses normal. No cardiac murmur. Respiratory: No respiratory distress. Skin: Normal skin color. No rash. Extremities: Extremities nontender. Neuro: Oriented X 3. LABS, X-RAYS, AND EKG Laboratory Tests: Culture, Strep Screen: (DOUGLAS: 01/24/2017 19:15) ( MsgRcvd 01/24/2017 19:41) Final results Test Result Flag Units (Reference) RAPID STREP SCREEN - THROAT DATE: 01/24/17 NEGATIVE SCREEN: RAPID STREP SCREEN NEGATIVE; CONFIRMATION TO FOLLOW . PROGRESS AND PROCEDURES Patient/family counseled. Disposition: Discharged. Condition: stable. CLINICAL IMPRESSION Acute streptococcal tonsillitis (presumed, culture pending.). No recurrent tonsillitis. INSTRUCTIONS Drink plenty of fluids. Warnings: Further evaluation is necessary. GENERAL WARNINGS: Return or contact your physician immediately if your condition worsens or changes unexpectedly, if not improving as expected, or if other problems arise. Prescription Medications: Amoxicillin 500 mg capsules: take 1 orally every 8 hours for 7 days. No refills. OTC Medications: Acetaminophen (available over the counter): take according to label instructions. Follow-up: Follow up with your doctor in one week if not better. Call for an appointment. Understanding of the discharge instructions verbalized by patient. (Electronically signed by Destin Wallace MD 01/25/2017 19:41)
--- NOTE | 2017-01-24 19:52 | ED NURSING NOTES ---
Clinical Report - Nurses [facility] [address] [place] [address] 01/24/2017 19:05 Patient: EDVIN BELL TRIAGE Triage time 19:13. Acuity: LEVEL 4. Chief Complaint: SORE THROAT. --19:16 Chuck R.N. 19:12 01/24/17. BP: 136/72. HR: 78. RR: 16. O2 saturation: 99%. Temp: 98.7 F. Pain level now: 04/26. --19:16 Chuck R.N. Weight: 112.4 kg. Height/Length: 66 inches. BMI: 40. --19:14 Chuck R.N. Medications None. --19:14 Chuck R.N. Allergies No Known Drug Allergy. --19:14 Chuck R.N. History Arrived by private vehicle. Historian: patient. Accompanied by family. Onset. (3 days ago). ( pt states her "salvia feels really thick). Reports enlarged lymph nodes. PAST MEDICAL HX: Immunizations: up-to-date. Last normal menstrual period- 3 weeks ago. SOCIAL HX: Never smoker. No alcohol use or drug use. No infectious disease exposure. SELF HARM ASSESSMENT: A self harm assessment was performed. The patient answered "no" to the question "Have you recently felt down, depressed, or hopeless?", "Have you noticed less interest or pleasure in doing things?", "Do you have thoughts of harming or killing yourself?", "Are you here because you tried to hurt yourself?", "Have you ever tried to hurt yourself before today?", "Have you recently had thoughts about harming or killing others?" and "Do you have any dangerous items in your possession?". FALL RISK ASSESSMENT: Fall risk assessment completed. No fall risk identified. NUTRITIONAL RISK ASSESSMENT: The nutritional risk assessment revealed no deficiencies. FUNCTIONAL ASSESSMENT: Functional assessment: no impairments noted. LEARNING NEEDS ASSESSMENT: The learning needs assessment revealed no barriers. ABUSE ASSESSMENT: Abuse assessment: The patient was asked "Do you feel safe in your home?". SKIN INTEGRITY ASSESSMENT: Skin integrity risk assessment completed. No skin integrity risk identified. --19:16 Desmond Woods PROBLEMS: Headache. UTI - Urinary Tract Infection. Dysfunctional Uterine Bleeding. Influenza. Pelvic Pain. GI Bleeding. URI. Abdominal Pain. Immunizations. --19:14 Desmond Woods ADDITIONAL SURGERIES: Endoscopy. --19:14 Desmond Woods Interventions ID band on patient. To treatment room. --19:16 Desmond Woods PHYSICAL ASSESSMENT Ambulatory to room. GENERAL / NEURO / PSYCH: Alert. Oriented X 4. Appears in no acute distress. HEENT: Pupils equal, round and reactive to light. Voice within normal limits. Mouth within normal limits upon inspection. No dental injury noted. Mucous membranes are pink. RESPIRATORY: Respirations not labored. CVS: Capillary refill less than 2 seconds. SKIN: Skin is warm and dry. Normal skin turgor. --19:16 Desmond Woods NURSING PROGRESS NOTES Patient identifiers checked. Call light placed in reach. Side rails up x 1. Bed placed in lowest position. Brakes of bed on. --19:16 Desmond Woods DISPOSITION / DISCHARGE Departure time: 19:58. No learning barriers present. Discharge instructions provided and reviewed with the patient. Reviewed medication(s) side effects, precautions, dosing and course information. Prescription(s) given to the patient. Patient verbalized understanding. Written instructions provided in Kittitian. No warning instructions, treatment instructions, referrals given to the patient, diet instructions or activity restrictions. No note given, follow up contact number given or stop smoking instructions. The patient was discharged by the physician. She was discharged home and accompanied by family. She left the Emergency Department ambulatory and via private vehicle. Family member driving. FALL RISK ASSESSMENT: Fall risk assessment completed. No fall risk identified. --19:59 Desmond Woods 19:57 01/24/17. BP: deferred. HR: deferred. RR: deferred. O2 saturation: deferred. Temp: deferred. Pain level now deferred. --19:59 Desmond Woods Locked/Released at 01/24/2017 19:59 by Desmond Woods
--- NOTE | 2017-01-24 19:52 | ED CLINICAL REPORT ---
Clinical Report - Physicians/Mid Levels [address] [place] [address] 01/24/2017 19:05 [id number] Time Seen: 19:39 Jan 24 2017. Arrived- By private vehicle. Historian- patient. CPT: ER phys charges level 3 (#[id number]). HISTORY OF PRESENT ILLNESS Chief Complaint: SORE THROAT. 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 ( pt states her "salvia feels really thick). Reports enlarged lymph nodes. and is still present. Pain described as moderate. The patient has had a sore throat. No toothache or swollen jaw or face. (Possible strep throat exposure.). Similar symptoms previously: None. Recent medical care: Not recently seen/assessed. REVIEW OF SYSTEMS The patient has had fever. No eye discomfort, cough, difficulty breathing, chest pain or nausea. No diarrhea, abdominal pain, headache, joint pain or skin rash. No enlarged lymph nodes or vomiting. All systems otherwise negative, except as recorded above. PAST HISTORY Headache. UTI - Urinary Tract Infection. Dysfunctional Uterine Bleeding. Influenza. Pelvic Pain. GI Bleeding. URI. Abdominal Pain. Immunizations. --19:14 Desmond Woods ADDITIONAL SURGERIES: Endoscopy. Medications: None. Allergies: No Known Drug Allergy. SOCIAL HISTORY Never smoker. No alcohol use or drug use. ADDITIONAL NOTES The nursing notes have been reviewed. PHYSICAL EXAM Vital Signs: 01/24/2017 19:12 BP: 136/72. HR: 78. RR: 16. O2 saturation: 99%. Temp: 98.7 F. Pain level now: 8/10. Appearance: Alert. Patient in mild distress. Head: Normal external inspection. Eyes: Pupils equal, round and reactive to light. Conjunctivae and eyelids normal. ENT: Nose normal. Pharyngeal erythema. Right-sided tonsillar erythema. Left-sided tonsillar erythema. Lips normal. No trismus present. Uvula midline. Neck: Trachea midline. No adenopathy. CVS: Normal heart rate and rhythm. Heart sounds normal. Pulses normal. No cardiac murmur. Respiratory: No respiratory distress. Skin: Normal skin color. No rash. Extremities: Extremities nontender. Neuro: Oriented X 3. LABS, X-RAYS, AND EKG Laboratory Tests: Culture, Strep Screen: (DOUGLAS: 01/24/2017 19:15) ( MsgRcvd 01/24/2017 19:41) Final results Test Result Flag Units (Reference) RAPID STREP SCREEN - THROAT DATE: 01/24/17 NEGATIVE SCREEN: RAPID STREP SCREEN NEGATIVE; CONFIRMATION TO FOLLOW . PROGRESS AND PROCEDURES Patient/family counseled. Disposition: Discharged. Condition: stable. CLINICAL IMPRESSION Acute streptococcal tonsillitis (presumed, culture pending.). No recurrent tonsillitis. INSTRUCTIONS Drink plenty of fluids. Warnings: Further evaluation is necessary. GENERAL WARNINGS: Return or contact your physician immediately if your condition worsens or changes unexpectedly, if not improving as expected, or if other problems arise. Prescription Medications: Amoxicillin 500 mg capsules: take 1 orally every 8 hours for 7 days. No refills. OTC Medications: Acetaminophen (available over the counter): take according to label instructions. Follow-up: Follow up with your doctor in one week if not better. Call for an appointment. Understanding of the discharge instructions verbalized by patient. (Electronically signed by Destin Wallace MD 01/25/2017 19:41)
--- NOTE | 2017-01-24 19:52 | ED NURSING NOTES ---
Clinical Report - Nurses [address] [place] [address] 01/24/2017 19:05 Patient: EDVIN BELL TRIAGE Triage time 19:13. Acuity: LEVEL 4. Chief Complaint: SORE THROAT. --19:16 Chuck R.N. 19:12 01/24/17. BP: 136/72. HR: 78. RR: 16. O2 saturation: 99%. Temp: 98.7 F. Pain level now: 04/26. --19:16 Chuck R.N. Weight: 112.4 kg. Height/Length: 66 inches. BMI: 40. --19:14 Chuck R.N. Medications None. --19:14 Chuck R.N. Allergies No Known Drug Allergy. --19:14 Chuck R.N. History Arrived by private vehicle. Historian: patient. Accompanied by family. Onset. (3 days ago). ( pt states her "salvia feels really thick). Reports enlarged lymph nodes. PAST MEDICAL HX: Immunizations: up-to-date. Last normal menstrual period- 3 weeks ago. SOCIAL HX: Never smoker. No alcohol use or drug use. No infectious disease exposure. SELF HARM ASSESSMENT: A self harm assessment was performed. The patient answered "no" to the question "Have you recently felt down, depressed, or hopeless?", "Have you noticed less interest or pleasure in doing things?", "Do you have thoughts of harming or killing yourself?", "Are you here because you tried to hurt yourself?", "Have you ever tried to hurt yourself before today?", "Have you recently had thoughts about harming or killing others?" and "Do you have any dangerous items in your possession?". FALL RISK ASSESSMENT: Fall risk assessment completed. No fall risk identified. NUTRITIONAL RISK ASSESSMENT: The nutritional risk assessment revealed no deficiencies. FUNCTIONAL ASSESSMENT: Functional assessment: no impairments noted. LEARNING NEEDS ASSESSMENT: The learning needs assessment revealed no barriers. ABUSE ASSESSMENT: Abuse assessment: The patient was asked "Do you feel safe in your home?". SKIN INTEGRITY ASSESSMENT: Skin integrity risk assessment completed. No skin integrity risk identified. --19:16 Desmond Woods PROBLEMS: Headache. UTI - Urinary Tract Infection. Dysfunctional Uterine Bleeding. Influenza. Pelvic Pain. GI Bleeding. URI. Abdominal Pain. Immunizations. --19:14 Desmond Woods ADDITIONAL SURGERIES: Endoscopy. --19:14 Desmond Woods Interventions ID band on patient. To treatment room. --19:16 Desmond Woods PHYSICAL ASSESSMENT Ambulatory to room. GENERAL / NEURO / PSYCH: Alert. Oriented X 4. Appears in no acute distress. HEENT: Pupils equal, round and reactive to light. Voice within normal limits. Mouth within normal limits upon inspection. No dental injury noted. Mucous membranes are pink. RESPIRATORY: Respirations not labored. CVS: Capillary refill less than 2 seconds. SKIN: Skin is warm and dry. Normal skin turgor. --19:16 Desmond Woods NURSING PROGRESS NOTES Patient identifiers checked. Call light placed in reach. Side rails up x 1. Bed placed in lowest position. Brakes of bed on. --19:16 Desmond Woods DISPOSITION / DISCHARGE Departure time: 19:58. No learning barriers present. Discharge instructions provided and reviewed with the patient. Reviewed medication(s) side effects, precautions, dosing and course information. Prescription(s) given to the patient. Patient verbalized understanding. Written instructions provided in [place] Islander. No warning instructions, treatment instructions, referrals given to the patient, diet instructions or activity restrictions. No note given, follow up contact number given or stop smoking instructions. The patient was discharged by the physician. She was discharged home and accompanied by family. She left the Emergency Department ambulatory and via private vehicle. Family member driving. FALL RISK ASSESSMENT: Fall risk assessment completed. No fall risk identified. --19:59 Desmond Woods 19:57 01/24/17. BP: deferred. HR: deferred. RR: deferred. O2 saturation: deferred. Temp: deferred. Pain level now deferred. --19:59 Desmond Woods Locked/Released at 01/24/2017 19:59 by Desmond Woods
--- NOTE | 2017-01-24 19:52 | ED ORDER SUMMARY ---
..... Patient: EDVIN BELL OrderSheet VisitID: [id number] [address] [place] [address] 26y, F Registration Date/Time: 01/24/2017 ORDER SHEET Weight: 112.4 kg Allergies: No Known Drug Allergy GENERAL ORDERS: Culture, Strep Screen Urgent (19:25 01/24/2017 Calderon Alves.Felecia per protocol) (19:25 Calderon R.N.) MEDICATION ORDERS: IV FLUIDS: ORDER SHEET NOTES: [Electronically signed by Anita Altamirano R.N. (19:59 01/24/2017)] [Electronically signed by Destin Wallace MD (19:41 01/25/2017)] [Electronically locked/signed by Anita Altamirano R.N. (19:59 01/24/2017)]
--- NOTE | 2017-01-25 19:41 | ED MED RECONCILIATION SUMMARY ---
Patient: EDVIN BELL Medication Reconciliation Report [facility] VisitID: [id number] [address] [place] [address] 26y, F Registration Date/Time: 01/24/2017 Weight: 112.4 kg Height/Length: 66 in. BMI: 40.0 ALLERGIES: No Known Drug Allergy The patient's Home Medications are listed below: NONE. The source(s) of the original Home Medication information: Not obtained. The following Medications were given to the patient in the Emergency Department: None. The following Medications were prescribed to the patient: Acetaminophen (available over the counter): take according to label instructions. -- Destin Wallace MD Amoxicillin 500 mg capsules: take 1 orally every 8 hours for 7 days. No refills. -- Destin Wallace MD
--- NOTE | 2017-01-25 19:41 | ED DISCHARGE INSTRUCTIONS ---
Patient: EDVIN BELL General Instructions [facility] VisitID: [id number] [place] [address] 26y, F Registration Date/Time: 01/24/2017 Acute streptococcal tonsillitis (presumed, culture pending.). No recurrent tonsillitis. INSTRUCTIONS Drink plenty of fluids. Warnings: Further evaluation is necessary. GENERAL WARNINGS: Return or contact your physician immediately if your condition worsens or changes unexpectedly, if not improving as expected, or if other problems arise. Prescription Medications: Amoxicillin 500 mg capsules: take 1 orally every 8 hours for 7 days. No refills. OTC Medications: Acetaminophen (available over the counter): take according to label instructions. Follow-up: Follow up with your doctor in one week if not better. Call for an appointment. Understanding of the discharge instructions verbalized by patient. ADDITIONAL INFORMATION Amoxicillin Trihydrate Oral tablet What is this medicine? AMOXICILLIN (a mox i KEREN in) is a penicillin antibiotic. It is used to treat certain kinds of bacterial infections. It will not work for colds, flu, or other viral infections. How should I use this medicine? Take this medicine by mouth with a glass of water. Follow the directions on your prescription label. You may take this medicine with food or on an empty stomach. Take your medicine at regular intervals. Do not take your medicine more often than directed. Take all of your medicine as directed even if you think your are better. Do not skip doses or stop your medicine early. Talk to your rn angiography regarding the use of this medicine in children. While this drug may be prescribed for selected conditions, precautions do apply. What side effects may I notice from receiving this medicine? Side effects that you should report to your doctor or health career discovery teacher as soon as possible: allergic reactions like skin rash, itching or hives, swelling of the face, lips, or tongue breathing problems dark urine redness, blistering, peeling or loosening of the skin, including inside the mouth seizures severe or watery diarrhea trouble passing urine or change in the amount of urine unusual bleeding or bruising unusually weak or tired yellowing of the eyes or skin Side effects that usually do not require medical attention (report to your doctor or health career discovery teacher if they continue or are bothersome): dizziness headache stomach upset trouble sleeping What may interact with this medicine? amiloride control pills chloramphenicol macrolides probenecid sulfonamides tetracyclines What if I miss a dose? If you miss a dose, take it as soon as you can. If it is almost time for your next dose, take only that dose. Do not take double or extra doses. Where should I keep my medicine? Keep out of the reach of children. Store between 68 and 77 degrees F (20 and 25 degrees C). Keep bottle closed tightly. Throw away any unused medicine after the expiration date. What should I tell my health care provider before I take this medicine? They need to know if you have any of these conditions: asthma kidney disease an unusual or allergic reaction to amoxicillin, other penicillins, cephalosporin antibiotics, other medicines, foods, dyes, or preservatives or trying to get breast-feeding What should I watch for while using this medicine? Tell your doctor or health career discovery teacher if your symptoms do not improve in 2 or 3 days. Take all of the doses of your medicine as directed. Do not skip doses or stop your medicine early. If you are diabetic, you may get a false positive result for sugar in your urine with certain brands of urine tests. Check with your doctor. Do not treat diarrhea with [id number] products. Contact your doctor if you have diarrhea that lasts more than 2 days or if the diarrhea is severe and watery. You have been given the following additional information: Amoxicillin Trihydrate Oral tablet (Electronically signed by Destin Wallace MD 01/25/2017 19:41)
--- NOTE | 2017-01-25 19:41 | ED DISCHARGE INSTRUCTIONS ---
Patient: EDVIN BELL General Instructions [facility] VisitID: [id number] [place] [address] 26y, F Registration Date/Time: 01/24/2017 Acute streptococcal tonsillitis (presumed, culture pending.). No recurrent tonsillitis. INSTRUCTIONS Drink plenty of fluids. Warnings: Further evaluation is necessary. GENERAL WARNINGS: Return or contact your physician immediately if your condition worsens or changes unexpectedly, if not improving as expected, or if other problems arise. Prescription Medications: Amoxicillin 500 mg capsules: take 1 orally every 8 hours for 7 days. No refills. OTC Medications: Acetaminophen (available over the counter): take according to label instructions. Follow-up: Follow up with your doctor in one week if not better. Call for an appointment. Understanding of the discharge instructions verbalized by patient. ADDITIONAL INFORMATION Amoxicillin Trihydrate Oral tablet What is this medicine? AMOXICILLIN (a mox i KEREN in) is a penicillin antibiotic. It is used to treat certain kinds of bacterial infections. It will not work for colds, flu, or other viral infections. How should I use this medicine? Take this medicine by mouth with a glass of water. Follow the directions on your prescription label. You may take this medicine with food or on an empty stomach. Take your medicine at regular intervals. Do not take your medicine more often than directed. Take all of your medicine as directed even if you think your are better. Do not skip doses or stop your medicine early. Talk to your necktie turner regarding the use of this medicine in children. While this drug may be prescribed for selected conditions, precautions do apply. What side effects may I notice from receiving this medicine? Side effects that you should report to your doctor or health childcare worker as soon as possible: allergic reactions like skin rash, itching or hives, swelling of the face, lips, or tongue breathing problems dark urine redness, blistering, peeling or loosening of the skin, including inside the mouth seizures severe or watery diarrhea trouble passing urine or change in the amount of urine unusual bleeding or bruising unusually weak or tired yellowing of the eyes or skin Side effects that usually do not require medical attention (report to your doctor or health childcare worker if they continue or are bothersome): dizziness headache stomach upset trouble sleeping What may interact with this medicine? amiloride control pills chloramphenicol macrolides probenecid sulfonamides tetracyclines What if I miss a dose? If you miss a dose, take it as soon as you can. If it is almost time for your next dose, take only that dose. Do not take double or extra doses. Where should I keep my medicine? Keep out of the reach of children. Store between 68 and 77 degrees F (20 and 25 degrees C). Keep bottle closed tightly. Throw away any unused medicine after the expiration date. What should I tell my health care provider before I take this medicine? They need to know if you have any of these conditions: asthma kidney disease an unusual or allergic reaction to amoxicillin, other penicillins, cephalosporin antibiotics, other medicines, foods, dyes, or preservatives or trying to get breast-feeding What should I watch for while using this medicine? Tell your doctor or health childcare worker if your symptoms do not improve in 2 or 3 days. Take all of the doses of your medicine as directed. Do not skip doses or stop your medicine early. If you are diabetic, you may get a false positive result for sugar in your urine with certain brands of urine tests. Check with your doctor. Do not treat diarrhea with [id number] products. Contact your doctor if you have diarrhea that lasts more than 2 days or if the diarrhea is severe and watery. You have been given the following additional information: Amoxicillin Trihydrate Oral tablet (Electronically signed by Destin Wallace MD 01/25/2017 19:41)
--- NOTE | 2017-01-25 19:41 | ED MAR SUMMARY ---
..... Medication Administration Record [address] [place], [place] [id number] Patient: EDVIN BELL Visit ID: [id number] 26y, F Weight: 112.4 kg Height/Length: 66 in BMI: 40 ALLERGIES: No Known Drug Allergy
--- NOTE | 2017-01-25 19:41 | ED MED RECONCILIATION SUMMARY ---
Patient: EDVIN BELL Medication Reconciliation Report [facility] VisitID: [id number] [address] [place] [address] 26y, F Registration Date/Time: 01/24/2017 Weight: 112.4 kg Height/Length: 66 in. BMI: 40.0 ALLERGIES: No Known Drug Allergy The patient's Home Medications are listed below: NONE. The source(s) of the original Home Medication information: Not obtained. The following Medications were given to the patient in the Emergency Department: None. The following Medications were prescribed to the patient: Acetaminophen (available over the counter): take according to label instructions. -- Destin Wallace MD Amoxicillin 500 mg capsules: take 1 orally every 8 hours for 7 days. No refills. -- Destin Wallace MD
--- NOTE | 2017-01-25 19:41 | ED MAR SUMMARY ---
..... Medication Administration Record [facility] [address] [place], [place] [id number] Patient: EDVIN BELL Visit ID: [id number] 26y, F Weight: 112.4 kg Height/Length: 66 in BMI: 40 ALLERGIES: No Known Drug Allergy
== END 2017-01-24 19:55 | disposition home or self-care (01) ==
LOC: ED SRH 19:05
DX: J02.0 Streptococcal pharyngitis (principal)
CPT/HCPCS: 90154; 90159

== ENCOUNTER 2017-02-13 19:38 | Emergency (ER) | payer OTHER ==
--- NOTE | 2017-02-13 21:38 | ED CLINICAL REPORT ---
Clinical Report - Physicians/Mid Levels [facility] [address] [place] [address] 02/13/2017 19:38 Patient: EDVIN BELL Time Seen: 20:05; initial patient contact. Arrived- By private vehicle. Historian- patient. HISTORY OF PRESENT ILLNESS Chief Complaint: VOMITING. This started about 3 months ago and is still present (persistent). It was gradual in onset and has been intermittent. The patient has had nausea, vomiting and moderate, crampy abdominal pain. The pain is described as located in the RUQ. No diarrhea, black stools or bloody stools. The illness is described as moderate. Similar symptoms previously: Many times. Recent medical care: Not recently seen/assessed. REVIEW OF SYSTEMS No fever, difficulty with urination, dark urine, dizziness or skin rash. No jaundice. She has had a headache. All systems otherwise negative, except as recorded above. PAST HISTORY Tonsillitis. Headache. UTI - Urinary Tract Infection. Dysfunctional Uterine Bleeding. Influenza. Pelvic Pain. GI Bleeding. URI. Constipation. Abdominal Pain. SURGERIES: Endoscopy. SOCIAL HISTORY Never smoker. No alcohol use or drug use. ADDITIONAL NOTES The nursing notes have been reviewed. PHYSICAL EXAM Vital Signs: 02/13/2017 20:01 BP: 126/77. HR: 93. RR: 17. O2 saturation: 97%. Temp: 98.3 F. Pain level now: 8/10. Have been reviewed as normal. Appearance: Alert. Oriented X3. No acute distress. Eyes: Eyes normal inspection. ENT: Pharynx normal. CVS: Normal heart rate and rhythm. Heart sounds normal. Respiratory: No respiratory distress. Breath sounds normal. Abdomen: Soft. Moderate tenderness in the right upper quadrant with guarding present. Positive Gastelum's sign. Bowel sounds normal. No organomegaly. No mass. Skin: Skin warm and dry. Normal skin color. Neuro: Oriented X 3. LABS, X-RAYS, AND EKG Abdominal Sonogram: (Contracted GB. No acute cholecystitis). The study was interpreted by the radiologist and discussed with the radiologist. Interpretation time: 21:30. Laboratory Tests: UA-Culture if indicated: (DOUGLAS: 02/13/2017 20:05) ( [facility] 02/13/2017 21:18) Final results Test Result Flag Units (Reference) URINE COLOR YELLOW URINE APPEARANCE CLEAR URINE GLUCOSE NEGATIVE (NEGATIVE) URINE BILIRUBIN NEGATIVE (NEGATIVE) URINE KETONE NEGATIVE (NEGATIVE) URINE SPECIFIC GRAVITY 1.015 (1.010-1.030) URINE PH 8.0 (5.0-8.0) URINE PROTEIN NEGATIVE (NEGATIVE) URINE UROBILINOGEN 1.0 EU/dL (0.2-1.0) URINE NITRITE NEGATIVE (NEGATIVE) URINE BLOOD NEGATIVE (NEGATIVE) URINE LEUK ESTERASE NEGATIVE (NEGATIVE) URINE RBC NONE SEEN rbc/hpf (0-1) URINE WBC 1-3 wbc/hpf (0-1) URINE EPITHELIAL CELLS 5-10 EPI/hpf (0-5) URINE BACTERIA FEW (1+) (NONE SEEN) URINE COMMENT CULT NOT INDICATED 1+ AMORPHOUSURINE CULTURES ARE SET-UP BASED ON THE FOLLOWING CRITERIA:POSITIVE NITRITEPOSITIVE LEUKOCYTE ESTERASEGREATER THAN 10 WHITE BLOOD CELLSMODERATE (2+) OR GREATER BACTERIA Urine: (DOUGLAS: 02/13/2017 20:05) ( [facility] 02/13/2017 21:04) Final results Test Result Flag Units (Reference) URINE NEGATIVE CBC w Diff: (DOUGLAS: 02/13/2017 20:20) ( [facility] 02/13/2017 21:01) Final results Test Result Flag Units (Reference) WHITE BLOOD COUNT 8.6 K/uL (4.5-11.5) RED BLOOD COUNT 4.56 M/uL (4.00-5.20) HEMOGLOBIN 12.8 gm/dL (12.0-16.0) HEMATOCRIT 38.0 % (36.0-46.0) MEAN CELL VOLUME 83 fL (80-100) MEAN CORPUSCULAR HGB 28 pg (26-34) MEAN CORPUSCULAR HGB CONC 34 g/dL (31-37) RED CELL DISTRIBUTION WIDTH 13.6 % (11.6-14.8) PLATELET COUNT 285 K/uL (150-400) NEUTROPHIL % 66.6 % (50-75) LYMPH % 27.3 % (25-40) MONO % 4.8 % (3-14) EOSINOPHIL % 0.9 % (0-4) BASOPHIL % 0.4 % (0-2) CMP: (DOUGLAS: 02/13/2017 20:20) ( MsgRcvd 02/13/2017 21:18) Final results Test Result Flag Units (Reference) GLUCOSE 169 H mg/dL (70-110) BUN 15 mg/dL (7-18) CREATININE 0.8 mg/dL (0.6-1.3) Estimated GFR >60 mL/min Estimated GFR- >60 mL/min Note: Persistent reduction over 3 months in eGFR<60 mL/min/1.73 m2 defines CKD. Patients with eGFR values>=60 mL/min/1.73 m2 may also have CKD if evidence ofpersistent proteinuria. Additional information may be foundat www.kidney.org. SODIUM 140 mmol/L (136-145) POTASSIUM 3.5 mmol/L (3.5-5.1) CHLORIDE 104 mmol/L (98-107) CARBON DIOXIDE 29 mmol/L (21-32) CALCIUM 8.7 mg/dL (8.5-10.1) TOTAL PROTEIN 8.0 g/dL (6.4-8.2) ALBUMIN 3.9 g/dL (3.3-5.0) BILIRUBIN, TOTAL 0.7 mg/dL (0.0-1.0) ALKALINE PHOSPHATASE 72 U/L (46-116) AST (SGOT) 21 U/L (15-37) ALT (SGPT) 48 U/L (12-78) LIPASE 312 U/L (73-393) AMYLASE 56 U/L (25-115) . PROGRESS AND PROCEDURES Disposition: Discharged home in good and improved condition. Condition: good. CLINICAL IMPRESSION Biliary colic. No gallstones or cholecystitis. INSTRUCTIONS Drink plenty of fluids. Avoid fatty and fried/greasy foods. Prescription Medications: Hydrocodone/APAP 5mg / 325mg: take 1 orally every 6 hours as needed for pain. Dispense fifteen (15). No refill. Zofran (orally disintegrating tablets) 4 mg: take 1 orally every 6 hours as needed for nausea and vomiting. Dispense ten (10). No refill. Substitution is permissible. Follow-up: Screening today revealed the patient's blood pressure to be in the normal range. Follow-up with: Vladimir Carballo MD, General Surgeon, , [facility], [address] [place] [address] Follow up in about two days. Call for an appointment. (Electronically signed by Sigifredo Metcalf Dr. 02/13/2017 21:42)
--- NOTE | 2017-02-13 21:38 | ED ORDER SUMMARY ---
..... Patient: EDVIN BELL OrderSheet [facility] VisitID: [id number] [place] [address] 26y, F Registration Date/Time: 02/13/2017 ORDER SHEET Weight: 112.4 kg (stated) Allergies: No Known Drug Allergy GENERAL ORDERS: CBC w Diff Urgent (20:49 02/13/2017 Ector Jones) (20:50 CHagerty ER Nuclear Engineer) (20:50 MCook R.N.) CMP Urgent (20:49 02/13/2017 Ector Jones) (20:50 CHagerty ER Nuclear Engineer) (20:50 MCook R.N.) UA-Culture if indicated Urgent (20:49 02/13/2017 Ector Jones) (20:50 CHagerty ER Nuclear Engineer) (20:50 MCook R.N.) Amylase Urgent (20:49 02/13/2017 Ector Jones) (20:50 CHagerty ER Nuclear Engineer) (20:51 MCook R.N.) Lipase Urgent (20:49 02/13/2017 Ector Jones) (20:50 CHagerty ER Nuclear Engineer) (20:51 MCook R.N.) Urine Urgent (20:49 02/13/2017 Ector Jones) (20:50 CHagerty ER Nuclear Engineer) (20:51 MCook R.N.) US Abdomen Limited (Yes) (Gallbladder) Urgent (21:00 02/13/2017 Ector Jones) (Ack 21:04 CHagerty ER Nuclear Engineer) (21:55 MCook R.N.) MEDICATION ORDERS: IV FLUIDS: IV NS : initial bolus none -, then 1000 mL/hr for X1 (NOW) (20:49 02/13/2017 Ector Jones) (20:55 MCook R.N.) Zofran IV 4 mg (NOW) (20:49 02/13/2017 Ector Jones) (20:59 MCook R.N.) Famotidine IV 20 mg/50mL (NOW) (20:49 02/13/2017 Ector Jones) (21:01 MCook R.N.) ORDER SHEET NOTES: [Electronically signed by Sigifredo Metcalf Dr. (21:42 02/13/2017)] [Electronically signed by Justin Hoover R.N. (:42 02/13/2017)] [Electronically locked/signed by Justin Hoover R.N. (:42 02/13/2017)]
--- NOTE | 2017-02-13 21:38 | ED NURSING NOTES ---
Clinical Report - Nurses [facility] [place] [address] [place] [address] 02/13/2017 19:38 [id number] Triage time 19:55 Feb 13 2017. Acuity: LEVEL 3. Chief Complaint: ABDOMINAL PAIN and NAUSEA and (dizziness). --19:59 Justin Hoover R.N. 20:01 02/13/17. BP: 126/77. HR: 93. RR: 17. O2 saturation: 97% on room air. Temp: 98.3 F. Pain level now: 04/26. --20:01 Justin Hoover R.N. Weight: 112.4 kg stated. Height/Length: 66 inches Per Patient. BMI: 40. --19:54 Justin Hoover R.N. Medications Tums Oral. --19:59 Justin Hoover R.N. The following entry was struck by Justin Hoover R.N., 19:59 (02/13/17) Reason - wrong value. <<STRICKEN ENTRY-- None. --19:58 Justin Hoover R.N. --END STRIKE>>. Allergies No Known Drug Allergy. --19:57 Justin Hoover R.N. History Arrived by private vehicle. Historian: patient. Accompanied by family. ( Pt has had multiple visits for the same symptoms, epigastric pain, dizziness, neck and back pain.). She has had nausea and abdominal pain. No vomiting, diarrhea or constipation. PAST MEDICAL HX: Mild gastroesophageal reflux disease. No history of diabetes mellitus. No history of peptic ulcer disease. Immunizations: up-to-date. Last normal menstrual period- January 07 - test neg. last week at Dr's office. SOCIAL HX: Never smoker. No alcohol use or drug use. No recent travel. No infectious disease exposure. No known contact with a sick individual. ABUSE ASSESSMENT: No report of abuse. SELF HARM ASSESSMENT: A self harm assessment was performed. The patient answered "no" to the question "Have you recently felt down, depressed, or hopeless?" and "Do you have thoughts of harming or killing yourself?". FALL RISK ASSESSMENT: Fall risk assessment completed. No fall risk identified. NUTRITIONAL RISK ASSESSMENT: The nutritional risk assessment revealed no deficiencies. FUNCTIONAL ASSESSMENT: Functional assessment: no impairments noted. LEARNING NEEDS ASSESSMENT: The learning needs assessment revealed no barriers. SKIN INTEGRITY ASSESSMENT: Skin integrity risk assessment completed. No skin integrity risk identified. --19:59 Justin Hoover R.N. PROBLEMS: Tonsillitis. Headache. UTI - Urinary Tract Infection. Dysfunctional Uterine Bleeding. Influenza. Pelvic Pain. GI Bleeding. URI. LNMP - Last Normal Menstrual Period. Constipation. Abdominal Pain. Immunizations. . --19:58 Justin Hoover R.N. ADDITIONAL SURGERIES: Endoscopy. --19:58 Justin Hoover R.N. Interventions ID band on patient. To treatment room. --19:59 Justin Hoover R.N. PHYSICAL ASSESSMENT Ambulatory to room. GENERAL / NEURO / PSYCH: Alert. Oriented X 4. Appears in distress. RESPIRATORY: Respirations not labored. CVS: Capillary refill less than 2 seconds. GI / : The patient has had nausea. Obesity. Bowel sounds within normal limits. SKIN: Skin is warm and dry. --20:00 Justin Hoover R.N. GENERAL / NEURO / PSYCH: Awake. Oriented X 4. Alert. [place] Coma Scale: 15- eyes open spontaneously (4); best verbal response- oriented x 4 (5); best motor response- obeys commands (6). Speech normal. Mood/affect normal. ( Pt reports generalized BAUER, mild photophobia, greatest point of pain is at the base of her neck.). HEENT: Pupils equal, round and reactive to light. --20:50 Justin Hoover R.N. NURSING PROGRESS NOTES Patient ID band checked for patient name and birthdate: patient confirmed. Blood samples drawn from the left antecubital space peripheral IV site by nurse per protocol ; labeled in presence of the patient and sent to lab: rainbow set. Line flushed with 10 mL normal saline post blood draw. Patient ID band checked for patient name and birthdate: patient confirmed. Instructions provided to collect clean catch urine and patient verbalized understanding. Clean catch urine collected with return of yellow-colored cloudy urine; sample sent to lab. Specimen labeled in the presence of the patient. ( Pt feels warm, provided her with an ice pack to neck, lights dimmed, waiting for physician samuel, family at bedside.). --20:26 Justin Hoover R.N. 19:45 02/13/2017 Site #1 started via IV in the left antecubital space with an 20g angiocath, with aseptic technique and good blood return; one attempt. Saline lock flushed with 10 mL saline. --20:54 Justin Hoover R.N. 20:55 02/13/2017 Started bag #1 1000 mL IV Fluids IV NS (Saline); bolus of 1000 mL wide open via site #1 via IV pump. Allergies verified and confirmed 5 rights. IV patency established. IV site checked: no pain, redness, or swelling. IV flushed thoroughly pre- and post-medication administration. Completed per protocol. --20:55 Justin Hoover R.N. 20:59 02/13/2017 Zofran (Ondansetron HCl) IVP 4 mg given over 2 minute(s) via site #1. IVP given by RN. --20:59 Justin Hoover R.N. 21:01 02/13/2017 Started 20 mg of Famotidine IVPB in bag #1 50 mL; at 100 mL/hr over 30 minute(s) via site #1 via IV pump. Allergies verified and confirmed 5 rights. IV patency established. IV site checked: no pain, redness, or swelling. IV flushed thoroughly pre- and post-medication administration. Completed per protocol. --21:01 Justin Hoover R.N. 21:02 02/13/17. BP: 107/53. HR: 91. RR: 16. O2 saturation: 98% on room air. --21:05 Justin Hoover R.N. ( IVF started, scheduled medications given, family at bedside, no further needs, instructed Pt not to eat or drink until okay'd by ). --21:06 Justin Hoover R.N. 21:19 billing and quality technician with patient for exam. --21:24 Chevy Stratton R.N. 21:55 02/13/2017 Zofran IVP Response: no adverse reaction symptoms have improved. --21:55 Justin Hoover R.N. 21:55 02/13/2017 Famotidine IVPB Response: no adverse reaction symptoms have improved. --21:55 Justin Hoover R.N. 22:31 02/13/2017 Site #1 removed upon discharge. Bandage applied. --22:31 Justin Hoover R.N. 22:31 02/13/2017 IV Fluids IV NS Discontinued: bag #1 infused upon discharge. Total amount infused: 1000 mL. IV patency established. IV site checked: no pain, redness, or swelling. IV flushed thoroughly. --22:31 Justin Hoover R.N. DISPOSITION / DISCHARGE 21:57 02/13/17. BP: 113/59. HR: 87. RR: 18. O2 saturation: 100% on room air. Temp: 97.6 F. Pain level now: 03/26. --21:58 Justin Hoover R.N. Condition at departure: improved and stable. The goals identified in the patient's plan of care were met. No learning barriers present. Discharge instructions provided and reviewed with the patient. Reviewed warnings (Pt instructed not to drive or drink ETOH while taking hydrocodone). Reviewed medication(s) side effects, precautions, dosing and course information. Prescription(s) given to the patient (Hydrocodone and Zofran). Reviewed referral to a surgeon for followup. Reviewed clear liquid diet, bland diet and need for increased fluid intake. Patient verbalized understanding. Written instructions provided in [place]. The patient was discharged home. She left the Emergency Department ambulatory and via private vehicle. Patient driving. --22:25 Justin Hoover R.N. Departure time: 22:38 Feb 13 2017. --22:41 Justin Hoover R.N. Locked/Released at 02/13/2017 22:42 by Justin Hoover R.N.
--- NOTE | 2017-02-13 21:38 | ED ORDER SUMMARY ---
..... Patient: EDVIN BELL OrderSheet [facility] VisitID: [id number] [place] [address] 26y, F Registration Date/Time: 02/13/2017 ORDER SHEET Weight: 112.4 kg (stated) Allergies: No Known Drug Allergy GENERAL ORDERS: CBC w Diff Urgent (20:49 02/13/2017 Ector Jones) (20:50 CHagerty ER Social Work Assistant) (20:50 MCook R.N.) CMP Urgent (20:49 02/13/2017 Ector Jones) (20:50 CHagerty ER Social Work Assistant) (20:50 MCook R.N.) UA-Culture if indicated Urgent (20:49 02/13/2017 Ector Jones) (20:50 CHagerty ER Social Work Assistant) (20:50 MCook R.N.) Amylase Urgent (20:49 02/13/2017 Ector Jones) (20:50 CHagerty ER Social Work Assistant) (20:51 MCook R.N.) Lipase Urgent (20:49 02/13/2017 Ector Jones) (20:50 CHagerty ER Social Work Assistant) (20:51 MCook R.N.) Urine Urgent (20:49 02/13/2017 Ector Jones) (20:50 CHagerty ER Social Work Assistant) (20:51 MCook R.N.) US Abdomen Limited (Yes) (Gallbladder) Urgent (21:00 02/13/2017 Ector Jones) (Ack 21:04 CHagerty ER Social Work Assistant) (21:55 MCook R.N.) MEDICATION ORDERS: IV FLUIDS: IV NS : initial bolus none -, then 1000 mL/hr for X1 (NOW) (20:49 02/13/2017 Ector Jones) (20:55 MCook R.N.) Zofran IV 4 mg (NOW) (20:49 02/13/2017 Ector Jones) (20:59 MCook R.N.) Famotidine IV 20 mg/50mL (NOW) (20:49 02/13/2017 Ector Jones) (21:01 MCook R.N.) ORDER SHEET NOTES: [Electronically signed by Sigifredo Metcalf Dr. (21:42 02/13/2017)] [Electronically signed by Justin Hoover R.N. (:42 02/13/2017)] [Electronically locked/signed by Justin Hoover R.N. (:42 02/13/2017)]
--- NOTE | 2017-02-13 21:38 | ED CLINICAL REPORT ---
Clinical Report - Physicians/Mid Levels [facility] [address] [place] [address] 02/13/2017 19:38 Patient: EDVIN BELL Time Seen: 20:05; initial patient contact. Arrived- By private vehicle. Historian- patient. HISTORY OF PRESENT ILLNESS Chief Complaint: VOMITING. This started about 3 months ago and is still present (persistent). It was gradual in onset and has been intermittent. The patient has had nausea, vomiting and moderate, crampy abdominal pain. The pain is described as located in the RUQ. No diarrhea, black stools or bloody stools. The illness is described as moderate. Similar symptoms previously: Many times. Recent medical care: Not recently seen/assessed. REVIEW OF SYSTEMS No fever, difficulty with urination, dark urine, dizziness or skin rash. No jaundice. She has had a headache. All systems otherwise negative, except as recorded above. PAST HISTORY Tonsillitis. Headache. UTI - Urinary Tract Infection. Dysfunctional Uterine Bleeding. Influenza. Pelvic Pain. GI Bleeding. URI. Constipation. Abdominal Pain. SURGERIES: Endoscopy. SOCIAL HISTORY Never smoker. No alcohol use or drug use. ADDITIONAL NOTES The nursing notes have been reviewed. PHYSICAL EXAM Vital Signs: 02/13/2017 20:01 BP: 126/77. HR: 93. RR: 17. O2 saturation: 97%. Temp: 98.3 F. Pain level now: 8/10. Have been reviewed as normal. Appearance: Alert. Oriented X3. No acute distress. Eyes: Eyes normal inspection. ENT: Pharynx normal. CVS: Normal heart rate and rhythm. Heart sounds normal. Respiratory: No respiratory distress. Breath sounds normal. Abdomen: Soft. Moderate tenderness in the right upper quadrant with guarding present. Positive Gastelum's sign. Bowel sounds normal. No organomegaly. No mass. Skin: Skin warm and dry. Normal skin color. Neuro: Oriented X 3. LABS, X-RAYS, AND EKG Abdominal Sonogram: (Contracted GB. No acute cholecystitis). The study was interpreted by the radiologist and discussed with the radiologist. Interpretation time: 21:30. Laboratory Tests: UA-Culture if indicated: (DOUGLAS: 02/13/2017 20:05) ( [facility] 02/13/2017 21:18) Final results Test Result Flag Units (Reference) URINE COLOR YELLOW URINE APPEARANCE CLEAR URINE GLUCOSE NEGATIVE (NEGATIVE) URINE BILIRUBIN NEGATIVE (NEGATIVE) URINE KETONE NEGATIVE (NEGATIVE) URINE SPECIFIC GRAVITY 1.015 (1.010-1.030) URINE PH 8.0 (5.0-8.0) URINE PROTEIN NEGATIVE (NEGATIVE) URINE UROBILINOGEN 1.0 EU/dL (0.2-1.0) URINE NITRITE NEGATIVE (NEGATIVE) URINE BLOOD NEGATIVE (NEGATIVE) URINE LEUK ESTERASE NEGATIVE (NEGATIVE) URINE RBC NONE SEEN rbc/hpf (0-1) URINE WBC 1-3 wbc/hpf (0-1) URINE EPITHELIAL CELLS 5-10 EPI/hpf (0-5) URINE BACTERIA FEW (1+) (NONE SEEN) URINE COMMENT CULT NOT INDICATED 1+ AMORPHOUSURINE CULTURES ARE SET-UP BASED ON THE FOLLOWING CRITERIA:POSITIVE NITRITEPOSITIVE LEUKOCYTE ESTERASEGREATER THAN 10 WHITE BLOOD CELLSMODERATE (2+) OR GREATER BACTERIA Urine: (DOUGLAS: 02/13/2017 20:05) ( [facility] 02/13/2017 21:04) Final results Test Result Flag Units (Reference) URINE NEGATIVE CBC w Diff: (DOUGLAS: 02/13/2017 20:20) ( [facility] 02/13/2017 21:01) Final results Test Result Flag Units (Reference) WHITE BLOOD COUNT 8.6 K/uL (4.5-11.5) RED BLOOD COUNT 4.56 M/uL (4.00-5.20) HEMOGLOBIN 12.8 gm/dL (12.0-16.0) HEMATOCRIT 38.0 % (36.0-46.0) MEAN CELL VOLUME 83 fL (80-100) MEAN CORPUSCULAR HGB 28 pg (26-34) MEAN CORPUSCULAR HGB CONC 34 g/dL (31-37) RED CELL DISTRIBUTION WIDTH 13.6 % (11.6-14.8) PLATELET COUNT 285 K/uL (150-400) NEUTROPHIL % 66.6 % (50-75) LYMPH % 27.3 % (25-40) MONO % 4.8 % (3-14) EOSINOPHIL % 0.9 % (0-4) BASOPHIL % 0.4 % (0-2) CMP: (DOUGLAS: 02/13/2017 20:20) ( MsgRcvd 02/13/2017 21:18) Final results Test Result Flag Units (Reference) GLUCOSE 169 H mg/dL (70-110) BUN 15 mg/dL (7-18) CREATININE 0.8 mg/dL (0.6-1.3) Estimated GFR >60 mL/min Estimated GFR- >60 mL/min Note: Persistent reduction over 3 months in eGFR<60 mL/min/1.73 m2 defines CKD. Patients with eGFR values>=60 mL/min/1.73 m2 may also have CKD if evidence ofpersistent proteinuria. Additional information may be foundat www.[email or web address].org. SODIUM 140 mmol/L (136-145) POTASSIUM 3.5 mmol/L (3.5-5.1) CHLORIDE 104 mmol/L (98-107) CARBON DIOXIDE 29 mmol/L (21-32) CALCIUM 8.7 mg/dL (8.5-10.1) TOTAL PROTEIN 8.0 g/dL (6.4-8.2) ALBUMIN 3.9 g/dL (3.3-5.0) BILIRUBIN, TOTAL 0.7 mg/dL (0.0-1.0) ALKALINE PHOSPHATASE 72 U/L (46-116) AST (SGOT) 21 U/L (15-37) ALT (SGPT) 48 U/L (12-78) LIPASE 312 U/L (73-393) AMYLASE 56 U/L (25-115) . PROGRESS AND PROCEDURES Disposition: Discharged home in good and improved condition. Condition: good. CLINICAL IMPRESSION Biliary colic. No gallstones or cholecystitis. INSTRUCTIONS Drink plenty of fluids. Avoid fatty and fried/greasy foods. Prescription Medications: Hydrocodone/APAP 5mg / 325mg: take 1 orally every 6 hours as needed for pain. Dispense fifteen (15). No refill. Zofran (orally disintegrating tablets) 4 mg: take 1 orally every 6 hours as needed for nausea and vomiting. Dispense ten (10). No refill. Substitution is permissible. Follow-up: Screening today revealed the patient's blood pressure to be in the normal range. Follow-up with: Vladimir Carballo MD, General Surgeon, , [facility], [address] [place] [address] Follow up in about two days. Call for an appointment. (Electronically signed by Sigifredo Metcalf Dr. 02/13/2017 21:42)
--- NOTE | 2017-02-13 22:42 | ED DISCHARGE INSTRUCTIONS ---
Patient: EDVIN BELL General Instructions [facility] VisitID: [id number] Myra [place] [id number] 26y, F Registration Date/Time: 02/13/2017 Biliary colic. No gallstones or cholecystitis. INSTRUCTIONS Drink plenty of fluids. Avoid fatty and fried/greasy foods. Prescription Medications: Hydrocodone/APAP 5mg / 325mg: take 1 orally every 6 hours as needed for pain. Dispense fifteen (15). No refill. Zofran (orally disintegrating tablets) 4 mg: take 1 orally every 6 hours as needed for nausea and vomiting. Dispense ten (10). No refill. Substitution is permissible. Follow-up: Screening today revealed the patient's blood pressure to be in the normal range. Follow-up with: Vladimir Carballo MD, General Surgeon, , [facility], [address] [place] [address] Follow up in about two days. Call for an appointment. ADDITIONAL INFORMATION Possible Gallstone With Biliary Colic [Presumed] Your doctor suspects that your abdominal pain is due to spasm of the gallbladder with gallstones. The gallbladder is a small sack under the liver which stores and releases bile. Bile is a fluid that aids in the digestion of fat. A gallstone may form in this sack and block the flow of bile fluid. This can cause mild to severe cramping pain in the mid or right upper abdomen with nausea and vomiting. To be more certain of the diagnosis, you may need to have an ultrasound, CT-scan or other special test. Home Care: Rest in bed and follow a clear liquid diet until feeling better. If pain or nausea medicine was given to help with your symptoms, take these as directed. Fat in your diet makes the gallbladder contract and may cause increased pain. Therefore, avoid fat in your diet over the next two days and follow a low-fat diet after that. If you are overweight, a low fat diet will help you lose weight. Follow Up if a test was already scheduled for you, keep this appointment. Be sure you know how to prepare yourself for the test. Usually, you will be asked not to eat or drink anything for at least 8 hours before the test. Schedule an appointment with your own doctor after your test is complete to discuss the findings. Get Prompt Medical Attention if any of the following occur: Pain gets worse or moves to the right lower abdomen Repeated vomiting Swelling of the abdomen Pain lasts over 6 hours Fever of 100.4 F (38 C) or higher, or as directed by your healthcare provider Weakness, dizziness or fainting Dark urine or light colored stools Yellow color of the skin or eyes Chest, arm, back, neck or jaw pain [place] Diet A bland diet is used for patients with an upset stomach. It consists of foods that are mild and easy to digest. It is better to eat small frequent meals rather than three large meals a day. BEVERAGES OK: Fruit juices, non-caffeinated teas and coffee, non-carbonated sommer AVOID: Carbonated beverage, caffeinated tea and coffee, all alcoholic beverages BREAD OK: Refined white, wheat or rye bread, lorraine or soda crackers, [place] toast, plain rolls, bagels AVOID: Whole-grain bread CEREAL OK: Refined cereals: cooked or ready to eat AVOID: Whole grain cereals and granola, or those containing bran, seeds or nuts DESSERTS OK: Peanut butter and all others except those to "avoid" AVOID: Chocolate, cocoa, coconut, popcorn, nuts, seeds, jam, marmalade FRUITS OK: Canned, cooked, frozen or fresh fruits without seeds or tough skin AVOID: Olives, skin and seeds of fruit MEATS OK: All fresh or preserved meat, fish and fowl AVOID: Any that are prepared with those spices to "avoid" CHEESE & EGGS OK: Eggs, cottage cheese, cream cheese, other cheeses AVOID: All cheeses made with those spices to "avoid" POTATOES & PASTA OK: Potato, rice, macaroni, noodles, spaghetti AVOID: None SOUPS OK: All soups without heavy seasoning AVOID: Soups made with those spices to "avoid" VEGETABLES OK: Canned, cooked, fresh or frozen mildly flavored vegetables without seeds, skins or coarse fiber AVOID: Vegetables prepared with those spices to "avoid"; skin and seeds of vegetables and those with coarse fiber SPICES OK: Salt, lemon and pala juice, vinegar, all extracts, alfonso, cinnamon, thyme, mace, allspice, paprika AVOID: [place] powder, cloves, pepper, seed spices, garlic, gravy pickles, highly seasoned salad dressings Hydrocodone Bitartrate, Acetaminophen Oral tablet What is this medicine? ACETAMINOPHEN; HYDROCODONE (a set a TYSHAWN wiley fen; nella droe KOE done) is a pain reliever. It is used to treat mild to moderate pain. How should I use this medicine? Take this medicine by mouth. Swallow it with a full glass of water. Follow the directions on the prescription label. If the medicine upsets your stomach, take the medicine with food or milk. Do not take more than you are told to take. Talk to your eap clinician regarding the use of this medicine in children. This medicine is not approved for use in children. What side effects may I notice from receiving this medicine? Side effects that you should report to your doctor or health manager critical care as soon as possible: allergic reactions like skin rash, itching or hives, swelling of the face, lips, or tongue breathing problems confusion feeling faint or lightheaded, falls stomach pain yellowing of the eyes or skin Side effects that usually do not require medical attention (report to your doctor or health manager critical care if they continue or are bothersome): nausea, vomiting stomach upset What may interact with this medicine? alcohol antihistamines isoniazid medicines for depression, anxiety, or psychotic disturbances medicines for sleep muscle relaxants naltrexone narcotic medicines (opiates) for pain phenobarbital ritonavir tramadol What if I miss a dose? If you miss a dose, take it as soon as you can. If it is almost time for your next dose, take only that dose. Do not take double or extra doses. Where should I keep my medicine? Keep out of the reach of children. This medicine can be abused. Keep your medicine in a safe place to protect it from theft. Do not share this medicine with anyone. Selling or giving away this medicine is dangerous and against the law. Store at room temperature between 15 and 30 degrees C (59 and 86 degrees F). Protect from light. Keep container tightly closed. Throw away any unused medicine after the expiration date. Discard unused medicine and used packaging carefully. Pets and children can be harmed if they find used or lost packages. What should I tell my health care provider before I take this medicine? They need to know if you have any of these conditions: brain tumor Crohn's disease, inflammatory bowel disease, or ulcerative colitis drink more than 3 alcohol-containing drinks per day drug abuse or addiction head injury heart or circulation problems kidney disease or problems going to the bathroom liver disease lung disease, asthma, or breathing problems an unusual or allergic reaction to acetaminophen, hydrocodone, other opioid analgesics, other medicines, foods, dyes, or preservatives or trying to get breast-feeding What should I watch for while using this medicine? Tell your doctor or health manager critical care if your pain does not go away, if it gets worse, or if you have new or a different type of pain. You may develop tolerance to the medicine. Tolerance means that you will need a higher dose of the medicine for pain relief. Tolerance is normal and is expected if you take the medicine for a long time. Do not suddenly stop taking your medicine because you may develop a severe reaction. Your body becomes used to the medicine. This does NOT mean you are addicted. Addiction is a behavior related to getting and using a drug for a non-medical reason. If you have pain, you have a medical reason to take pain medicine. Your doctor will tell you how much medicine to take. If your doctor wants you to stop the medicine, the dose will be slowly lowered over time to avoid any side effects. You may get drowsy or dizzy when you first start taking the medicine or change doses. Do not drive, use machinery, or do anything that may be dangerous until you know how the medicine affects you. Stand or sit up slowly. There are different types of narcotic medicines (opiates) for pain. If you take more than one type at the same time, you may have more side effects. Give your health care provider a list of all medicines you use. Your doctor will tell you how much medicine to take. Do not take more medicine than directed. Call emergency for help if you have problems breathing. The medicine will cause constipation. Try to have a bowel movement at least every 2 to 3 days. If you do not have a bowel movement for 3 days, call your doctor or health manager critical care. Too much acetaminophen can be very dangerous. Do not take Tylenol (acetaminophen) or medicines that contain acetaminophen with this medicine. Many non-prescription medicines contain acetaminophen. Always read the labels carefully. Ondansetron Oral disintegrating tablet What is this medicine? ONDANSETRON (on HOLLY se mickie) is used to treat nausea and vomiting caused by chemotherapy. It is also used to prevent or treat nausea and vomiting after surgery. How should I use this medicine? These tablets are made to dissolve in the mouth. Do not try to push the tablet through the foil backing. With dry hands, peel away the foil backing and gently remove the tablet. Place the tablet in the mouth and allow it to dissolve, then swallow. While you may take these tablets with water, it is not necessary to do so. Talk to your eap clinician regarding the use of this medicine in children. Special care may be needed. What side effects may I notice from receiving this medicine? Side effects that you should report to your doctor or health manager critical care as soon as possible: allergic reactions like skin rash, itching or hives, swelling of the face, lips, or tongue breathing problems dizziness fast or irregular heartbeat feeling faint or lightheaded, falls fever and chills swelling of the hands and feet tightness in the chest Side effects that usually do not require medical attention (report to your doctor or health manager critical care if they continue or are bothersome): constipation or diarrhea headache What may interact with this medicine? Do not take this medicine with any of the following medications: -apomorphine -cisapride -dofetilide -dronedarone -pimozide -thioridazine -ziprasidone This medicine may also interact with the following medications: -carbamazepine -phenytoin -rifampicin -tramadol -other medicines that prolong the QT interval (cause an abnormal heart rhythm) What if I miss a dose? If you miss a dose, take it as soon as you can. If it is almost time for your next dose, take only that dose. Do not take double or extra doses. Where should I keep my medicine? Keep out of the reach of children. Store between 2 and 30 degrees C (36 and 86 degrees F). Throw away any unused medicine after the expiration date. What should I tell my health care provider before I take this medicine? They need to know if you have any of these conditions: heart disease history of irregular heartbeat liver disease low levels of magnesium or potassium in the blood an unusual or allergic reaction to ondansetron, granisetron, other medicines, foods, dyes, or preservatives or trying to get breast-feeding What should I watch for while using this medicine? Check with your doctor or health manager critical care as soon as you can if you have any sign of an allergic reaction. You have been given the following additional information: Biliary Colic With Gallstone (Presumed) Diet, [place] (Adult) Hydrocodone Bitartrate, Acetaminophen Oral tablet Ondansetron Oral disintegrating tablet (Electronically signed by Sigifredo Metcalf Dr. 02/13/2017 21:42)
--- NOTE | 2017-02-13 22:42 | DIAGNOSTIC IMAGING REPORT ---
PROCEDURE: US ABDOMEN ULTRASOUND-LIMITED INDICATION: RUQ PAIN TECHNIQUE: Molina scale and color Doppler sonographic images of the abdomen were obtained. COMPARISON: None. FINDINGS: Gallbladder is partially contracted (patient not n.p.o.). No evidence of gallstones. Common duct is normal (2 mm). Moderate fatty infiltration of the liver. Portions of the pancreas and right kidney are seen, and are normal. IMPRESSION: 1. Partially contracted gallbladder (patient not n.p.o.). No evidence of gallstones. 2. Moderate fatty infiltration of the liver. 3. Otherwise negative ultrasound of the right upper quadrant.
--- NOTE | 2017-02-13 22:42 | ED MAR SUMMARY ---
..... Medication Administration Record [facility] [address] [place] [address] Patient: EDVIN BELL Visit ID: [id number] 26y, F Weight: 112.4 kg Height/Length: 66 in BMI: 40 ALLERGIES: No Known Drug Allergy Start 20:55 02/13/2017 Justin Hoover R.N., Stop 22:31 02/13/2017 Justin Hoover R.N. Medication Administered: IV NS (SALINE), Dose: IV Fluids, Bolus: 1000 mL wide open, Dispensed: 1000 mL bag, Site: #1 left AC. Medication Ordered: IV NS : initial bolus none -, then 1000 mL/hr for X1 (NOW). Given 20:59 02/13/2017 Justin Hoover R.N. Medication Administered: ZOFRAN [IVP] (ONDANSETRON HCL), Dose: 4 mg IVP over 2 minute(s), Site: #1 left AC. Medication Ordered: Zofran IV 4 mg (NOW). Start 21:01 02/13/2017 Justin Hoover R.N. Medication Administered: FAMOTIDINE [IVPB], Dose: 20 mg IVPB over 30 minute(s), Rate: 100 mL/hr, Dispensed: 50 mL bag, Site: #1 left AC. Medication Ordered: Famotidine IV 20 mg/50mL (NOW).
--- NOTE | 2017-02-13 22:42 | ED MAR SUMMARY ---
..... Medication Administration Record [facility] [address] [place] [address] Patient: EDVIN BELL Visit ID: [id number] 26y, F Weight: 112.4 kg Height/Length: 66 in BMI: 40 ALLERGIES: No Known Drug Allergy Start 20:55 02/13/2017 Justin Hoover R.N., Stop 22:31 02/13/2017 Justin Hoover R.N. Medication Administered: IV NS (SALINE), Dose: IV Fluids, Bolus: 1000 mL wide open, Dispensed: 1000 mL bag, Site: #1 left AC. Medication Ordered: IV NS : initial bolus none -, then 1000 mL/hr for X1 (NOW). Given 20:59 02/13/2017 Justin Hoover R.N. Medication Administered: ZOFRAN [IVP] (ONDANSETRON HCL), Dose: 4 mg IVP over 2 minute(s), Site: #1 left AC. Medication Ordered: Zofran IV 4 mg (NOW). Start 21:01 02/13/2017 Justin Hoover R.N. Medication Administered: FAMOTIDINE [IVPB], Dose: 20 mg IVPB over 30 minute(s), Rate: 100 mL/hr, Dispensed: 50 mL bag, Site: #1 left AC. Medication Ordered: Famotidine IV 20 mg/50mL (NOW).
--- NOTE | 2017-02-13 22:42 | ED DISCHARGE INSTRUCTIONS ---
Patient: EDVIN BELL General Instructions [facility] VisitID: [id number] [place] [id number] 26y, F Registration Date/Time: 02/13/2017 Biliary colic. No gallstones or cholecystitis. INSTRUCTIONS Drink plenty of fluids. Avoid fatty and fried/greasy foods. Prescription Medications: Hydrocodone/APAP 5mg / 325mg: take 1 orally every 6 hours as needed for pain. Dispense fifteen (15). No refill. Zofran (orally disintegrating tablets) 4 mg: take 1 orally every 6 hours as needed for nausea and vomiting. Dispense ten (10). No refill. Substitution is permissible. Follow-up: Screening today revealed the patient's blood pressure to be in the normal range. Follow-up with: Vladimir Carballo MD, General Surgeon, , [facility], [address] [place] [address] Follow up in about two days. Call for an appointment. ADDITIONAL INFORMATION Possible Gallstone With Biliary Colic [Presumed] Your doctor suspects that your abdominal pain is due to spasm of the gallbladder with gallstones. The gallbladder is a small sack under the liver which stores and releases bile. Bile is a fluid that aids in the digestion of fat. A gallstone may form in this sack and block the flow of bile fluid. This can cause mild to severe cramping pain in the mid or right upper abdomen with nausea and vomiting. To be more certain of the diagnosis, you may need to have an ultrasound, CT-scan or other special test. Home Care: Rest in bed and follow a clear liquid diet until feeling better. If pain or nausea medicine was given to help with your symptoms, take these as directed. Fat in your diet makes the gallbladder contract and may cause increased pain. Therefore, avoid fat in your diet over the next two days and follow a low-fat diet after that. If you are overweight, a low fat diet will help you lose weight. Follow Up if a test was already scheduled for you, keep this appointment. Be sure you know how to prepare yourself for the test. Usually, you will be asked not to eat or drink anything for at least 8 hours before the test. Schedule an appointment with your own doctor after your test is complete to discuss the findings. Get Prompt Medical Attention if any of the following occur: Pain gets worse or moves to the right lower abdomen Repeated vomiting Swelling of the abdomen Pain lasts over 6 hours Fever of 100.4 F (38 C) or higher, or as directed by your healthcare provider Weakness, dizziness or fainting Dark urine or light colored stools Yellow color of the skin or eyes Chest, arm, back, neck or jaw pain [place] Diet A bland diet is used for patients with an upset stomach. It consists of foods that are mild and easy to digest. It is better to eat small frequent meals rather than three large meals a day. BEVERAGES OK: Fruit juices, non-caffeinated teas and coffee, non-carbonated sommer AVOID: Carbonated beverage, caffeinated tea and coffee, all alcoholic beverages BREAD OK: Refined white, wheat or rye bread, lorraine or soda crackers, [place] toast, plain rolls, bagels AVOID: Whole-grain bread CEREAL OK: Refined cereals: cooked or ready to eat AVOID: Whole grain cereals and granola, or those containing bran, seeds or nuts DESSERTS OK: Peanut butter and all others except those to "avoid" AVOID: Chocolate, cocoa, coconut, popcorn, nuts, seeds, jam, marmalade FRUITS OK: Canned, cooked, frozen or fresh fruits without seeds or tough skin AVOID: Olives, skin and seeds of fruit MEATS OK: All fresh or preserved meat, fish and fowl AVOID: Any that are prepared with those spices to "avoid" CHEESE & EGGS OK: Eggs, cottage cheese, cream cheese, other cheeses AVOID: All cheeses made with those spices to "avoid" POTATOES & PASTA OK: Potato, rice, macaroni, noodles, spaghetti AVOID: None SOUPS OK: All soups without heavy seasoning AVOID: Soups made with those spices to "avoid" VEGETABLES OK: Canned, cooked, fresh or frozen mildly flavored vegetables without seeds, skins or coarse fiber AVOID: Vegetables prepared with those spices to "avoid"; skin and seeds of vegetables and those with coarse fiber SPICES OK: Salt, lemon and [place] juice, vinegar, all extracts, alfonso, cinnamon, thyme, mace, allspice, paprika AVOID: [place] powder, cloves, pepper, seed spices, garlic, gravy pickles, highly seasoned salad dressings Hydrocodone Bitartrate, Acetaminophen Oral tablet What is this medicine? ACETAMINOPHEN; HYDROCODONE (a set a TYSHAWN wiley fen; nella droe KOE done) is a pain reliever. It is used to treat mild to moderate pain. How should I use this medicine? Take this medicine by mouth. Swallow it with a full glass of water. Follow the directions on the prescription label. If the medicine upsets your stomach, take the medicine with food or milk. Do not take more than you are told to take. Talk to your client account specialist regarding the use of this medicine in children. This medicine is not approved for use in children. What side effects may I notice from receiving this medicine? Side effects that you should report to your doctor or health career center director as soon as possible: allergic reactions like skin rash, itching or hives, swelling of the face, lips, or tongue breathing problems confusion feeling faint or lightheaded, falls stomach pain yellowing of the eyes or skin Side effects that usually do not require medical attention (report to your doctor or health career center director if they continue or are bothersome): nausea, vomiting stomach upset What may interact with this medicine? alcohol antihistamines isoniazid medicines for depression, anxiety, or psychotic disturbances medicines for sleep muscle relaxants naltrexone narcotic medicines (opiates) for pain phenobarbital ritonavir tramadol What if I miss a dose? If you miss a dose, take it as soon as you can. If it is almost time for your next dose, take only that dose. Do not take double or extra doses. Where should I keep my medicine? Keep out of the reach of children. This medicine can be abused. Keep your medicine in a safe place to protect it from theft. Do not share this medicine with anyone. Selling or giving away this medicine is dangerous and against the law. Store at room temperature between 15 and 30 degrees C (59 and 86 degrees F). Protect from light. Keep container tightly closed. Throw away any unused medicine after the expiration date. Discard unused medicine and used packaging carefully. Pets and children can be harmed if they find used or lost packages. What should I tell my health care provider before I take this medicine? They need to know if you have any of these conditions: brain tumor Crohn's disease, inflammatory bowel disease, or ulcerative colitis drink more than 3 alcohol-containing drinks per day drug abuse or addiction head injury heart or circulation problems kidney disease or problems going to the bathroom liver disease lung disease, asthma, or breathing problems an unusual or allergic reaction to acetaminophen, hydrocodone, other opioid analgesics, other medicines, foods, dyes, or preservatives or trying to get breast-feeding What should I watch for while using this medicine? Tell your doctor or health career center director if your pain does not go away, if it gets worse, or if you have new or a different type of pain. You may develop tolerance to the medicine. Tolerance means that you will need a higher dose of the medicine for pain relief. Tolerance is normal and is expected if you take the medicine for a long time. Do not suddenly stop taking your medicine because you may develop a severe reaction. Your body becomes used to the medicine. This does NOT mean you are addicted. Addiction is a behavior related to getting and using a drug for a non-medical reason. If you have pain, you have a medical reason to take pain medicine. Your doctor will tell you how much medicine to take. If your doctor wants you to stop the medicine, the dose will be slowly lowered over time to avoid any side effects. You may get drowsy or dizzy when you first start taking the medicine or change doses. Do not drive, use machinery, or do anything that may be dangerous until you know how the medicine affects you. Stand or sit up slowly. There are different types of narcotic medicines (opiates) for pain. If you take more than one type at the same time, you may have more side effects. Give your health care provider a list of all medicines you use. Your doctor will tell you how much medicine to take. Do not take more medicine than directed. Call emergency for help if you have problems breathing. The medicine will cause constipation. Try to have a bowel movement at least every 2 to 3 days. If you do not have a bowel movement for 3 days, call your doctor or health career center director. Too much acetaminophen can be very dangerous. Do not take Tylenol (acetaminophen) or medicines that contain acetaminophen with this medicine. Many non-prescription medicines contain acetaminophen. Always read the labels carefully. Ondansetron Oral disintegrating tablet What is this medicine? ONDANSETRON (on HOLLY se mickie) is used to treat nausea and vomiting caused by chemotherapy. It is also used to prevent or treat nausea and vomiting after surgery. How should I use this medicine? These tablets are made to dissolve in the mouth. Do not try to push the tablet through the foil backing. With dry hands, peel away the foil backing and gently remove the tablet. Place the tablet in the mouth and allow it to dissolve, then swallow. While you may take these tablets with water, it is not necessary to do so. Talk to your client account specialist regarding the use of this medicine in children. Special care may be needed. What side effects may I notice from receiving this medicine? Side effects that you should report to your doctor or health career center director as soon as possible: allergic reactions like skin rash, itching or hives, swelling of the face, lips, or tongue breathing problems dizziness fast or irregular heartbeat feeling faint or lightheaded, falls fever and chills swelling of the hands and feet tightness in the chest Side effects that usually do not require medical attention (report to your doctor or health career center director if they continue or are bothersome): constipation or diarrhea headache What may interact with this medicine? Do not take this medicine with any of the following medications: -apomorphine -cisapride -dofetilide -dronedarone -pimozide -thioridazine -ziprasidone This medicine may also interact with the following medications: -carbamazepine -phenytoin -rifampicin -tramadol -other medicines that prolong the QT interval (cause an abnormal heart rhythm) What if I miss a dose? If you miss a dose, take it as soon as you can. If it is almost time for your next dose, take only that dose. Do not take double or extra doses. Where should I keep my medicine? Keep out of the reach of children. Store between 2 and 30 degrees C (36 and 86 degrees F). Throw away any unused medicine after the expiration date. What should I tell my health care provider before I take this medicine? They need to know if you have any of these conditions: heart disease history of irregular heartbeat liver disease low levels of magnesium or potassium in the blood an unusual or allergic reaction to ondansetron, granisetron, other medicines, foods, dyes, or preservatives or trying to get breast-feeding What should I watch for while using this medicine? Check with your doctor or health career center director as soon as you can if you have any sign of an allergic reaction. You have been given the following additional information: Biliary Colic With Gallstone (Presumed) Diet, [place] (Adult) Hydrocodone Bitartrate, Acetaminophen Oral tablet Ondansetron Oral disintegrating tablet (Electronically signed by Sigifredo Metcalf Dr. 02/13/2017 21:42)
--- NOTE | 2017-02-13 22:42 | ED MED RECONCILIATION SUMMARY ---
Patient: DEVIN BELL Medication Reconciliation Report [facility] VisitID: [id number] [address] [place] [address] 26y, F Registration Date/Time: 02/13/2017 Weight: 112.4 kg Height/Length: 66 in. BMI: 40.0 ALLERGIES: No Known Drug Allergy The patient's Home Medications are listed below: THE FOLLOWING MEDICATIONS NEED TO BE RECONCILED: Tums Oral The source(s) of the original Home Medication information: Not obtained. The following Medications were given to the patient in the Emergency Department: IV NS IV Fluids bolus 1000 mL wide open, administered: 02/13/2017 8:55:00 PM Zofran [IVP] IVP 4 mg, administered: 02/13/2017 8:59:00 PM Famotidine [IVPB] IVPB bolus 0, then 20 mg 100 mL/hr, administered: 02/13/2017 9:01:00 PM The following Medications were prescribed to the patient: Hydrocodone/APAP 5mg / 325mg: take 1 orally every 6 hours as needed for pain. Dispense fifteen (15). No refill. -- Sigifredo Metcalf Dr. Zofran (orally disintegrating tablets) 4 mg: take 1 orally every 6 hours as needed for nausea and vomiting. Dispense ten (10). No refill. Substitution is permissible. -- Sigifredo Metcalf Dr.
--- NOTE | 2017-02-13 22:42 | ED MED RECONCILIATION SUMMARY ---
Patient: EDVIN BELL Medication Reconciliation Report [facility] VisitID: [id number] [address] [place] [address] 26y, F Registration Date/Time: 02/13/2017 Weight: 112.4 kg Height/Length: 66 in. BMI: 40.0 ALLERGIES: No Known Drug Allergy The patient's Home Medications are listed below: THE FOLLOWING MEDICATIONS NEED TO BE RECONCILED: Tums Oral The source(s) of the original Home Medication information: Not obtained. The following Medications were given to the patient in the Emergency Department: IV NS IV Fluids bolus 1000 mL wide open, administered: 02/13/2017 8:55:00 PM Zofran [IVP] IVP 4 mg, administered: 02/13/2017 8:59:00 PM Famotidine [IVPB] IVPB bolus 0, then 20 mg 100 mL/hr, administered: 02/13/2017 9:01:00 PM The following Medications were prescribed to the patient: Hydrocodone/APAP 5mg / 325mg: take 1 orally every 6 hours as needed for pain. Dispense fifteen (15). No refill. -- Sigifredo Metcalf Dr. Zofran (orally disintegrating tablets) 4 mg: take 1 orally every 6 hours as needed for nausea and vomiting. Dispense ten (10). No refill. Substitution is permissible. -- Sigifredo Metcalf Dr.
== END 2017-02-13 23:38 | disposition home or self-care (01) ==
LOC: ED SRH 19:38
DX: K80.50 Calculus of bile duct without cholangitis or cholecystitis without obstruction (principal)
CPT/HCPCS: 90004; 90100; 92235; 92530; 93070; 95059

== ENCOUNTER → 2017-02-15 | Outpatient (CLI) | payer OTHER ==
--- NOTE | 2017-02-15 17:16 | DIAGNOSTIC IMAGING REPORT ---
PROCEDURE: US PELVIC LIMITED INDICATION: LOWER ABDOMINAL PAIN TECHNIQUE: Transabdominal bach scale and color Doppler sonographic images of the female pelvis were obtained. COMPARISON: 09/17/2016 FINDINGS: The uterus is anteverted in position, measures 6.0 x 6.2 x 4.8 cm, and has a homogeneous myometrial echotexture. Normal vascularity. The endometrium is 7.5 mm in thickness. No endometrial fluid collections or suspicious masses. The visible portion of the urinary bladder is normal. The right ovary measures 4.0 x 2.4 x 2.6 cm and has a normal transabdominal follicular echotexture. There is normal arterial and venous ovarian flow present. The left ovary measures 4.1 x 2.9 x 2.4 cm and also has a normal follicular echotexture and normal vascularity. No suspicious adnexal masses or free pelvic fluid. IMPRESSION: 1. Normal transabdominal pelvic ultrasound.
--- NOTE | 2017-02-15 17:28 | DIAGNOSTIC IMAGING REPORT ---
PROCEDURE: US ABDOMEN ULTRASOUND-COMPLETE INDICATION: LOWER ABDOMINAL PAIN TECHNIQUE: Molina scale and color Doppler sonographic images of the abdomen were obtained without comparison. COMPARISON: 05/13/2011 FINDINGS: The liver is mildly enlarged in size measuring 21 cm in length and demonstrates diffusely hyperechoic parenchyma, difficult to penetrate with ultrasound. No mass or intrahepatic biliary dilatation. The gallbladder is normal without stones or sludge. The wall is normal thickness measuring 1.4 mm. No pericholecystic fluid or Gastelum sign. The extrahepatic common duct is normal measuring 2.7 mm. The visualized pancreas is normal without ductal dilatation or peripancreatic fluid collection. The abdominal aorta is normal in its course and caliber. The retrohepatic inferior vena cava is patent. There is appropriate hepatopetal flow in the portal vein. The right kidney measures 10.1 cm in length. The left kidney measures 11.2 cm in length. Both kidneys demonstrate normal morphology and cortical thickness without hydronephrosis, cyst, solid mass, or shadowing calculus. Color Doppler imaging demonstrates normal blood flow in each kidney. The spleen is enlarged measuring 13.8 cm in length by 7.1 cm in width. There is no perihepatic or perisplenic ascites. IMPRESSION: 1. Hepatomegaly and moderate hepatic steatosis. New since the prior study. 2. Mild splenomegaly, new since the prior study. Correlate clinically.
== END ==
LOC: US SRH 15:30
DX: R10.9 Unspecified abdominal pain (principal); R16.0 Hepatomegaly, not elsewhere classified; K76.0 Fatty (change of) liver, not elsewhere classified

== ENCOUNTER 2017-02-28 10:31 | Emergency (ER) | payer OTHER ==
--- NOTE | 2017-02-28 10:44 | ED NURSING NOTES ---
Clinical Report - Nurses [facility] [address] [place] [address] 02/28/2017 10:32 [id number] Triage time 10:37. Acuity: LEVEL 4. Chief Complaint: ANXIETY. 10:37 02/28/17. 10:38 02/28/17. Alert. No acute distress. SEPSIS SCREEN: Sepsis Screen. Negative (no infection suspected/documented). KIT COMA SCORE: Kirk Coma Scale: 15- eyes open spontaneously (4); best verbal response- oriented x 4 (5); best motor response- obeys commands (6). --10:41 Johnathan Hernandez R.N. 10:37 02/28/17. BP: 124/82. HR: 76. RR: 16. O2 saturation: 100%. Temp: 98.1 F (oral). Pain level now: 01/24. --10:41 Johnathan Hernandez R.N. Weight: 65.3 kg stated. Height/Length: 66 inches Per Patient. BMI: 23.2. --10:39 Johnathan Hernandez R.N. Medications Sertraline HCl Oral. --10:40 Johnathan Hernandez R.N. Medication/allergy information source: the patient. --10:41 Johnathan Hernandez R.N. Allergies No Known Drug Allergy. --10:40 Johnathan Hernandez R.N. History Arrived by EMS. Historian: EMS and patient. Primary physician (EVELIN YOUNG). 10:38 02/28/17. Onset: today. 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 See EMS report. BP: 118 / 84. HR: 78. RR: 14. Temp: 97.9 oral. O2 saturation: 99 % room air. ( Pt had an anxiety attack, unknown trigger, pt started new med sertaline.). PAST MEDICAL HX: Immunizations: up-to-date. Last normal menstrual period- 1.5 months ago. SOCIAL HX: Never smoker. No alcohol use or drug use. No infectious disease exposure. ABUSE ASSESSMENT: No report of abuse. FALL RISK ASSESSMENT: Fall risk assessment completed. No fall risk identified. NUTRITIONAL RISK ASSESSMENT: The nutritional risk assessment revealed no deficiencies. FUNCTIONAL ASSESSMENT: Functional assessment: no impairments noted. LEARNING NEEDS ASSESSMENT: The learning needs assessment revealed no barriers. SKIN INTEGRITY ASSESSMENT: Skin integrity risk assessment completed. No skin integrity risk identified. --10:41 Johnathan Hernandez R.N. PROBLEMS: Biliary Colic. Gastroesophageal Reflux Disease. Tonsillitis. Headache. UTI - Urinary Tract Infection. Dysfunctional Uterine Bleeding. Influenza. Pelvic Pain. GI Bleeding. URI. Constipation. Abdominal Pain. Immunizations. --10:40 Johnathan Hernandez R.N. ADDITIONAL SURGERIES: Endoscopy. --10:40 Johnathan Hernandez R.N. Assessment 10:38 02/28/17. --10:41 Johnathan Hernandez R.N. Interventions 10:37 02/28/17. 10:38 02/28/17. ID and allergy band on patient. To treatment room. --10:41 Johnathan Hernandez R.N. PHYSICAL ASSESSMENT 10:40 02/28/17. To room via stretcher. GENERAL / NEURO / PSYCH: Alert. Oriented X 4. Appears in no acute distress. Speech within normal limits. Good eye contact. Patient appears well-nourished and neat and clean. RESPIRATORY: Respirations not labored. CVS: Capillary refill less than 2 seconds. SKIN: Skin is warm and dry. --10:40 Johnathan Hernandez R.N. NURSING PROGRESS NOTES 10:50 02/28/2017 Acetaminophen (APAP) PO 1000 mg given. Allergies verified and confirmed 5 rights. --10:50 Johnathan Hernandez R.N. 10:50 02/28/2017 Zofran ODT (Ondansetron) PO 4 mg given. Allergies verified and confirmed 5 rights. --10:50 Johnathan Hernandez R.N. DISPOSITION / DISCHARGE 11:02/28/17. Condition at departure: improved. The goals identified in the patient's plan of care were met. No learning barriers present. Discharge instructions provided and reviewed with the patient and family. Reviewed warnings. Reviewed medication(s). Treatments reviewed. Patient and family verbalized understanding. Written instructions provided in Ivorian. The patient was discharged by the physician. She was discharged home and accompanied by family. She left the Emergency Department ambulatory and via private vehicle. Family member driving. FALL RISK ASSESSMENT: Fall risk assessment completed. No fall risk identified. --11:01 Johnathan Hernandez R.N. 11:01 02/28/17. BP: 128/70. HR: 77. RR: 14. O2 saturation: 99% on room air. Temp: 97.9 F (oral). Pain level now: 09/26. --11:01 Johnathan Hernandez R.N. 11:02 02/28/17. Departure time: 11:02. --11:02 Johnathan Hernandez R.N. Locked/Released at 02/28/2017 19:02 by Johnathan Hernandez R.N.
--- NOTE | 2017-02-28 10:44 | ED NURSING NOTES ---
Clinical Report - Nurses [facility] [address] [place] [address] 02/28/2017 10:32 [id number] TRI[facility] Triage time 10:37. Acuity: LEVEL 4. Chief Complaint: ANXIETY. 10:37 02/28/17. 10:38 02/28/17. Alert. No acute distress. SEPSIS SCREEN: Sepsis Screen. Negative (no infection suspected/documented). KIT COMA SCORE: Harrah Coma Scale: 15- eyes open spontaneously (4); best verbal response- oriented x 4 (5); best motor response- obeys commands (6). --10:41 Johnathan Hernandez R.N. 10:37 02/28/17. BP: 124/82. HR: 76. RR: 16. O2 saturation: 100%. Temp: 98.1 F (oral). Pain level now: 01/24. --10:41 Johnathan Hernandez R.N. Weight: 65.3 kg stated. Height/Length: 66 inches Per Patient. BMI: 23.2. --10:39 Johnathan Hernandez R.N. Medications Sertraline HCl Oral. --10:40 Johnathan Hernandez R.N. Medication/allergy information source: the patient. --10:41 Johnathan Hernandez R.N. Allergies No Known Drug Allergy. --10:40 Johnathan Hernandez R.N. History Arrived by EMS. Historian: EMS and patient. Primary physician (EVELIN YOUNG). 10:38 02/28/17. Onset: today. 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 See EMS report. BP: 118 / 84. HR: 78. RR: 14. Temp: 97.9 oral. O2 saturation: 99 % room air. ( Pt had an anxiety attack, unknown trigger, pt started new med sertaline.). PAST MEDICAL HX: Immunizations: up-to-date. Last normal menstrual period- 1.5 months ago. SOCIAL HX: Never smoker. No alcohol use or drug use. No infectious disease exposure. ABUSE ASSESSMENT: No report of abuse. FALL RISK ASSESSMENT: Fall risk assessment completed. No fall risk identified. NUTRITIONAL RISK ASSESSMENT: The nutritional risk assessment revealed no deficiencies. FUNCTIONAL ASSESSMENT: Functional assessment: no impairments noted. LEARNING NEEDS ASSESSMENT: The learning needs assessment revealed no barriers. SKIN INTEGRITY ASSESSMENT: Skin integrity risk assessment completed. No skin integrity risk identified. --10:41 Johnathan Hernandez R.N. PROBLEMS: Biliary Colic. Gastroesophageal Reflux Disease. Tonsillitis. Headache. UTI - Urinary Tract Infection. Dysfunctional Uterine Bleeding. Influenza. Pelvic Pain. GI Bleeding. URI. Constipation. Abdominal Pain. Immunizations. --10:40 Johnathan Hernandez R.N. ADDITIONAL SURGERIES: Endoscopy. --10:40 Johnathan Hernandez R.N. Assessment 10:38 02/28/17. --10:41 Johnathan Hernandez R.N. Interventions 10:37 02/28/17. 10:38 02/28/17. ID and allergy band on patient. To treatment room. --10:41 Johnathan Hernandez R.N. PHYSICAL ASSESSMENT 10:40 02/28/17. To room via stretcher. GENERAL / NEURO / PSYCH: Alert. Oriented X 4. Appears in no acute distress. Speech within normal limits. Good eye contact. Patient appears well-nourished and neat and clean. RESPIRATORY: Respirations not labored. CVS: Capillary refill less than 2 seconds. SKIN: Skin is warm and dry. --10:40 Johnathan Hernandez R.N. NURSING PROGRESS NOTES 10:50 02/28/2017 Acetaminophen (APAP) PO 1000 mg given. Allergies verified and confirmed 5 rights. --10:50 Johnathan Hernandez R.N. 10:50 02/28/2017 Zofran ODT (Ondansetron) PO 4 mg given. Allergies verified and confirmed 5 rights. --10:50 Johnathan Hernandez R.N. DISPOSITION / DISCHARGE 11:02/28/17. Condition at departure: improved. The goals identified in the patient's plan of care were met. No learning barriers present. Discharge instructions provided and reviewed with the patient and family. Reviewed warnings. Reviewed medication(s). Treatments reviewed. Patient and family verbalized understanding. Written instructions provided in American. The patient was discharged by the physician. She was discharged home and accompanied by family. She left the Emergency Department ambulatory and via private vehicle. Family member driving. FALL RISK ASSESSMENT: Fall risk assessment completed. No fall risk identified. --11:01 Johnathan Hernandez R.N. 11:01 02/28/17. BP: 128/70. HR: 77. RR: 14. O2 saturation: 99% on room air. Temp: 97.9 F (oral). Pain level now: 09/26. --11:01 Johnathan Hernandez R.N. 11:02 02/28/17. Departure time: 11:02. --11:02 Johnathan Hernandez R.N. Locked/Released at 02/28/2017 19:02 by Johnathan Hernandez R.N.
--- NOTE | 2017-02-28 10:44 | ED ORDER SUMMARY ---
..... Patient: EDVIN BELL OrderSheet [facility] VisitID: [id number] [address] [place] [address] 26y, F Registration Date/Time: 02/28/2017 ORDER SHEET Weight: 65.3 kg (stated) Allergies: No Known Drug Allergy GENERAL ORDERS: MEDICATION ORDERS: Acetaminophen PO 1,000 mg (NOW) (10:40 02/28/2017 Aria JAMES) (Ack 10:41 JBoardley R.N.) (10:50 JBoardley R.N.) Zofran ODT PO 4 mg (NOW) (10:41 02/28/2017 Aria JAMES) (Ack 10:41 JBoardley R.N.) (10:50 JBoardley R.N.) IV FLUIDS: ORDER SHEET NOTES: [Electronically signed by Johnathan Hernandez R.N. (19:02 02/28/2017)] [Electronically signed by Benny Smith DO (10:37 03/01/2017)] [Electronically locked/signed by Johnathan Hernandez R.N. (19:02 02/28/2017)]
--- NOTE | 2017-02-28 10:44 | ED ORDER SUMMARY ---
..... Patient: EDVIN BELL OrderSheet [facility] VisitID: [id number] [address] [place] [address] 26y, F Registration Date/Time: 02/28/2017 ORDER SHEET Weight: 65.3 kg (stated) Allergies: No Known Drug Allergy GENERAL ORDERS: MEDICATION ORDERS: Acetaminophen PO 1,000 mg (NOW) (10:40 02/28/2017 Aria JAMES) (Ack 10:41 JBoardley R.N.) (10:50 JBoardley R.N.) Zofran ODT PO 4 mg (NOW) (10:41 02/28/2017 Aria JAMES) (Ack 10:41 JBoardley R.N.) (10:50 JBoardley R.N.) IV FLUIDS: ORDER SHEET NOTES: [Electronically signed by Johnathan Hernandez R.N. (19:02 02/28/2017)] [Electronically signed by Benny Smith DO (10:37 03/01/2017)] [Electronically locked/signed by Johnathan Hernandez R.N. (19:02 02/28/2017)]
--- NOTE | 2017-02-28 10:44 | ED CLINICAL REPORT ---
Clinical Report - Physicians/Mid Levels [facility] [address] [place] [address] 02/28/2017 10:32 Patient: EDVIN BELL Time Seen: 10:34. Arrived- By ambulance. Historian- patient and EMS personnel. HISTORY OF PRESENT ILLNESS Chief Complaint: ANXIOUS. This started just prior to arrival. The patient has experienced situational problems. No recent drug use or alcohol consumption. The patient has had anxiety. Has been depressed. No unusual behavior, paranoia, delusions, suicidal thoughts or self-injury inflicted. No hallucinations. The symptoms are described as severe. No injury is present. Similar symptoms previously: Recent medical care: The patient was seen recently by a health care provider. Seen for similar symptoms. REVIEW OF SYSTEMS The patient has had dizziness and mild nausea. It has been similar to previous symptoms. No weakness, palpitations, abdominal pain, vomiting or diarrhea. No black stools, numbness, fever, sore throat or cough. No difficulty breathing, urinary frequency, skin rash, enlarged lymph nodes or joint pain. All systems otherwise negative, except as recorded above. PAST HISTORY ( Tonsillitis. Headache. UTI - Urinary Tract Infection. Dysfunctional Uterine Bleeding. Influenza. Pelvic Pain. GI Bleeding. URI. Constipation. Abdominal Pain. Possible "enlarged liver" SURGERIES: Endoscopy.). Medications: Sertraline HCl Oral. Allergies: No Known Drug Allergy. SOCIAL HISTORY Never smoker. No alcohol use or drug use. Has social support. ADDITIONAL NOTES The nursing notes have been reviewed. PHYSICAL EXAM Vital Signs: 02/28/2017 10:37 BP: 124/82. HR: 76. RR: 16. O2 saturation: 100%. Temp: 98.1 F. Pain level now: 5/10. Appearance: Alert. Appearance is normal. Patient is in mild distress. Anxious. Eyes: Pupils equal, round and reactive to light. No scleral icterus. Neck: Normal inspection. Neck supple. CVS: Normal heart rate and rhythm. Heart sounds normal. Respiratory: Breath sounds normal. Chest nontender. Abdomen: Soft and nontender. Back: No tenderness. Skin: Skin warm and dry. Normal skin color. Normal skin turgor. Extremities: Extremities exhibit normal ROM. No lower extremity edema. Psych / Neuro: Oriented X 3. Speech normal. Cognition normal. Thought process and content normal. Insight and judgement normal. Cranial nerves normal (as tested). No cerebellar findings. No motor deficit. No sensory deficit. Reflexes normal. LABS, X-RAYS, AND EKG Laboratory Tests: LABS FROM 2 WEEKS AGO AT [facility] ED: CBC w Diff: (DOUGLAS: 02/13/2017 20:20) ( [facility] 02/13/2017 21:01) Final results Test Result Flag (Reference) WHITE BLOOD COUNT 8.6 K/uL (4.5-11.5) RED BLOOD COUNT 4.56 M/uL (4.00-5.20) HEMOGLOBIN 12.8 gm/dL (12.0-16.0) HEMATOCRIT 38.0 % (36.0-46.0) MEAN CELL VOLUME 83 fL (80-100) MEAN CORPUSCULAR HGB 28 pg (26-34) MEAN CORPUSCULAR HGB CONC 34 g/dL (31-37) RED CELL DISTRIBUTION WIDTH 13.6 % (11.6-14.8) PLATELET COUNT 285 K/uL (150-400) NEUTROPHIL % 66.6 % (50-75) LYMPH % 27.3 % (25-40) MONO % 4.8 % (3-14) EOSINOPHIL % 0.9 % (0-4) BASOPHIL % 0.4 % (0-2) CMP: (DOUGLAS: 02/13/2017 20:20) ( [facility] 02/13/2017 21:18) Final results Test Result Flag (Reference) GLUCOSE 169 H mg/dL (70-110) BUN 15 mg/dL (7-18) CREATININE 0.8 mg/dL (0.6-1.3) Estimated GFR >60 mL/min Estimated GFR- >60 mL/min Note: Persistent reduction over 3 months in eGFR <60 mL/min/1.73 m2 defines CKD. Patients with eGFR values >=60 mL/min/1.73 m2 may also have CKD if evidence of persistent proteinuria. Additional information may be found at www.kidney.org. SODIUM 140 mmol/L (136-145) POTASSIUM 3.5 mmol/L (3.5-5.1) CHLORIDE 104 mmol/L (98-107) CARBON DIOXIDE 29 mmol/L (21-32) CALCIUM 8.7 mg/dL (8.5-10.1) TOTAL PROTEIN 8.0 g/dL (6.4-8.2) ALBUMIN 3.9 g/dL (3.3-5.0) BILIRUBIN, TOTAL 0.7 mg/dL (0.0-1.0) ALKALINE PHOSPHATASE 72 U/L (46-116) AST (SGOT) 21 U/L (15-37) ALT (SGPT) 48 U/L (12-78) LIPASE 312 U/L (73-393) AMYLASE 56 U/L (25-115) UA-Culture if indicated: (DOUGLAS: 02/13/2017 20:05) ( [facility] 02/13/2017 21:18) Final results Test Result Flag (Reference) URINE COLOR YELLOW URINE APPEARANCE CLEAR URINE GLUCOSE NEGATIVE (NEGATIVE) URINE BILIRUBIN NEGATIVE (NEGATIVE) URINE KETONE NEGATIVE (NEGATIVE) URINE SPECIFIC GRAVITY 1.015 (1.010-1.030) URINE PH 8.0 (5.0-8.0) URINE PROTEIN NEGATIVE (NEGATIVE) URINE UROBILINOGEN 1.0 EU/dL (0.2-1.0) URINE NITRITE NEGATIVE (NEGATIVE) URINE BLOOD NEGATIVE (NEGATIVE) URINE LEUK ESTERASE NEGATIVE (NEGATIVE) URINE RBC NONE SEEN rbc/hpf (0-1) URINE WBC 1-3 wbc/hpf (0-1) URINE EPITHELIAL CELLS 5-10 EPI/hpf (0-5) URINE BACTERIA FEW (1+) (NONE SEEN) URINE COMMENT CULT NOT INDICATED 1+ AMORPHOUS URINE CULTURES ARE SET-UP BASED ON THE FOLLOWING CRITERIA: POSITIVE NITRITE POSITIVE LEUKOCYTE ESTERASE GREATER THAN 10 WHITE BLOOD CELLS MODERATE (2+) OR GREATER BACTERIA Urine: (DOUGLAS: 02/13/2017 20:05) ( [facility] 02/13/2017 21:04) Final results Test Result Flag (Reference) URINE NEGATIVE . Pulse Oximetry: 02/28/2017 10:37 O2 saturation: 100%. (FIO2 - room air). Interpretation: normal. Note - Tests: (PROCEDURE: US ABDOMEN ULTRASOUND-COMPLETE INDICATION: LOWER ABDOMINAL PAIN TECHNIQUE: Molina scale and color Doppler sonographic images of the abdomen were obtained without comparison. COMPARISON: 05/13/2011 FINDINGS: The liver is mildly enlarged in size measuring 21 cm in length and demonstrates diffusely hyperechoic parenchyma, difficult to penetrate with ultrasound. No mass or intrahepatic biliary dilatation. The gallbladder is normal without stones or sludge. The wall is normal thickness measuring 1.4 mm. No pericholecystic fluid or Gastelum sign. The extrahepatic common duct is normal measuring 2.7 mm. The visualized pancreas is normal without ductal dilatation or peripancreatic fluid collection. The abdominal aorta is normal in its course and caliber. The retrohepatic inferior vena cava is patent. There is appropriate hepatopetal flow in the portal vein. The right kidney measures 10.1 cm in length. The left kidney measures 11.2 cm in length. Both kidneys demonstrate normal morphology and cortical thickness without hydronephrosis, cyst, solid mass, or shadowing calculus. Color Doppler imaging demonstrates normal blood flow in each kidney. The spleen is enlarged measuring 13.8 cm in length by 7.1 cm in width. There is no perihepatic or perisplenic ascites. IMPRESSION: 1. Hepatomegaly and moderate hepatic steatosis. New since the prior study. 2. Mild splenomegaly, new since the prior study. Correlate clinically.). PROGRESS AND PROCEDURES Course of Care: All c/w recurrent panic attack. I have offered, but pt declines, benzos as she feels essentially at her baseline. She did not take her sertraline today until after her event today (just prior to arrival). Patient/family counseled. Old ED records reviewed. Patient has had multiple ED visits ([facility] with 8 visits to area ED's in past 12 months). Disposition: Discharged. Condition: stable and improved. CLINICAL IMPRESSION Anxiety reaction with hyperventilation. INSTRUCTIONS Do not work for two days. Rest. Drink plenty of fluids. Warnings: Further evaluation is necessary. It is very important to follow up with a physician. GENERAL WARNINGS: Return or contact your physician immediately if your condition worsens or changes unexpectedly, if not improving as expected, or if other problems arise. Your Current Medications: CONTINUE TAKING THE FOLLOWING MEDICATIONS: Sertraline HCl Oral. Prescription Medications: Zofran 4 mg: take 1 orally every 6 hours as needed for nausea. Dispense ten (10). No refill. Substitution is permissible. OTC Medications: Acetaminophen (available over the counter): take according to label instructions. Motrin (available over the counter): take according to label instructions. Follow-up: Follow up with your doctor tomorrow. (Electronically signed by Benny Smith DO 03/01/2017 10:37)
--- NOTE | 2017-03-01 10:38 | ED MAR SUMMARY ---
..... Medication Administration Record [facility] [address] [place] [address] Patient: EDVIN BELL Visit ID: [id number] 26y, F Weight: 65.3 kg Height/Length: 66 in BMI: 23.2 ALLERGIES: No Known Drug Allergy Given 10:50 02/28/2017 Johnathan Hernandez, RMartaN. Medication Administered: ACETAMINOPHEN [PO] (APAP), Dose: 1000 mg PO. Medication Ordered: Acetaminophen PO 1,000 mg (NOW). Given 10:50 02/28/2017 Johnathan Hernandez, RMartaN. Medication Administered: ZOFRAN ODT [PO] (ONDANSETRON), Dose: 4 mg PO. Medication Ordered: Zofran ODT PO 4 mg (NOW).
--- NOTE | 2017-03-01 10:38 | ED MED RECONCILIATION SUMMARY ---
Patient: EDVIN BELL Medication Reconciliation Report [facility] VisitID: [id number] [address] [place] [address] 26y, F Registration Date/Time: 02/28/2017 Weight: 65.3 kg Height/Length: 66 in. BMI: 23.2 ALLERGIES: No Known Drug Allergy The patient's Home Medications are listed below: CONTINUE TAKING THE FOLLOWING MEDICATIONS: Sertraline HCl Oral The source(s) of the original Home Medication information: patient The following Medications were given to the patient in the Emergency Department: Acetaminophen [PO] PO 1000 mg, administered: 02/28/2017 10:50:00 AM Zofran ODT [PO] PO 4 mg, administered: 02/28/2017 10:50:00 AM The following Medications were prescribed to the patient: Acetaminophen (available over the counter): take according to label instructions. -- Benny Smith DO Motrin (available over the counter): take according to label instructions. -- Benny Smith DO Zofran 4 mg: take 1 orally every 6 hours as needed for nausea. Dispense ten (10). No refill. Substitution is permissible. -- Benny Smith DO
--- NOTE | 2017-03-01 10:38 | ED DISCHARGE INSTRUCTIONS ---
Patient: EDVIN BELL General Instructions [facility] VisitID: [id number] [place] [address] 26y, F Registration Date/Time: 02/28/2017 Anxiety reaction with hyperventilation. INSTRUCTIONS Do not work for two days. Rest. Drink plenty of fluids. Warnings: Further evaluation is necessary. It is very important to follow up with a physician. GENERAL WARNINGS: Return or contact your physician immediately if your condition worsens or changes unexpectedly, if not improving as expected, or if other problems arise. Your Current Medications: CONTINUE TAKING THE FOLLOWING MEDICATIONS: Sertraline HCl Oral. Prescription Medications: Zofran 4 mg: take 1 orally every 6 hours as needed for nausea. Dispense ten (10). No refill. Substitution is permissible. OTC Medications: Acetaminophen (available over the counter): take according to label instructions. Motrin (available over the counter): take according to label instructions. Follow-up: Follow up with your doctor tomorrow. ADDITIONAL INFORMATION Stress Reaction Anxiety is the feeling we all get when we think something bad might happen. It is a normal response to stress and usually causes only a mild reaction. When anxiety becomes more severe, emotions may interfere with daily life. In some cases, you may not even be aware of what it is youre anxious about! During an anxiety reaction, you may feel like you are helpless, nervous, depressed or irritable. Your body may show signs of anxiety in many ways. You may experience dry mouth, shakiness, dizziness, weakness, trouble breathing, chest pressure, headache, nausea, diarrhea, tiredness, inability to sleep or sexual problems. Home Care: 1) Try to locate the sources of stress in your life. They may not be obvious! These may include: -- Daily hassles of life which pile up (traffic jams, missed appointments, car troubles, etc.) -- Major life changes, both good (new baby, job promotion) and bad (loss of job, loss of loved one) -- Overload: feeling that you have too many responsibilities and can't take care of all of them at once -- Feeling helpless, feeling that your problems are beyond what youre able to solve 2) Notice how your body reacts to stress. Learn to listen to your body signals. This will help you take action before the stress becomes severe. 3) When you can, do something about the source of your stress. (Avoid hassles, limit the amount of change that happens in your life at one time and take a break when you feel overloaded). 4) Unfortunately, many stressful situations cannot be avoided. It is necessary to learn HOW TO MANAGE STRESS better. There are many proven methods that will reduce your anxiety. These include simple things like exercise, good nutrition and adequate rest. Also, there are certain techniques that are helpful: relaxation and breathing exercises, visualization, biofeedback and meditation. For more information about this, consult your doctor or go to a local bookstore and review the many books and tapes available on this subject. Follow Up If you feel that your anxiety is not responding to self-help measures, contact your doctor or make an appointment with a counselor. Get Prompt Medical Attention if any of the following occur: -- Your symptoms get worse -- Chest pain or trouble breathing -- Severe headache not relieved by rest and mild pain reliever -- Rapid or irregular heartbeat, fainting Hyperventilation Syndrome Hyperventilation Syndrome is a condition in which you lose control of your breathing. You may find yourself breathing too fast and/or too deep. This can be triggered by pain, anxiety and emotional stress. If hyperventilation continues for more than a few minutes, it can lead to a number of frightening symptoms, such as: Numbness and tingling of the hands, feet and face Clenching of the fingers or toes Dizziness Feeling like you cannot get enough air Chest pains Fainting or feeling like you are going to faint Once these symptoms begin, it is often hard to stop them because they lead to a cycle of more anxiety and more hyperventilation. It is important to understand that this is not a life-threatening condition and it will pass once you are able to relax. Relaxation and stress management methods can be learned and practiced in advance. These can help in the event of a future attack. Home Care: 1) Rest today until feeling back to normal. 2) If symptoms return: Sit or lie down. Remember that what is happening to you is temporary and will pass. Use the relaxation methods you have learned. It is no longer recommended to breathe into a paper bag. Follow Up with your doctor or as directed by our staff if symptoms recur. Get Prompt Medical Attention if any of the following occur: Increasing shortness of breath Fever of 100.0 F (38 C) or higher, or as directed by your healthcare provider Coughing up blood Chest pain that is made worse with each breath Redness, pain or swelling of the leg Ringing in your ears, Severe headache Weakness or fainting Ondansetron Hydrochloride Oral tablet What is this medicine? ONDANSETRON (on HOLLY se mickie) is used to treat nausea and vomiting caused by chemotherapy. It is also used to prevent or treat nausea and vomiting after surgery. How should I use this medicine? Take this medicine by mouth with a glass of water. Follow the directions on your prescription label. Take your doses at regular intervals. Do not take your medicine more often than directed. Talk to your sweet potato disintegrator regarding the use of this medicine in children. Special care may be needed. What side effects may I notice from receiving this medicine? Side effects that you should report to your doctor or health career placement specialist as soon as possible: allergic reactions like skin rash, itching or hives, swelling of the face, lips or tongue breathing problems dizziness fast or irregular heartbeat feeling faint or lightheaded, falls fever and chills swelling of the hands or feet tightness in the chest Side effects that usually do not require medical attention (report to your doctor or health career placement specialist if they continue or are bothersome): constipation or diarrhea headache What may interact with this medicine? Do not take this medicine with any of the following medications: -apomorphine -cisapride -dofetilide -dronedarone -pimozide -thioridazine -ziprasidone This medicine may also interact with the following medications: -carbamazepine -phenytoin -rifampicin -tramadol -other medicines that prolong the QT interval (cause an abnormal heart rhythm) What if I miss a dose? If you miss a dose, take it as soon as you can. If it is almost time for your next dose, take only that dose. Do not take double or extra doses. Where should I keep my medicine? Keep out of the reach of children. Store between 2 and 30 degrees C (36 and 86 degrees F). Throw away any unused medicine after the expiration date. What should I tell my health care provider before I take this medicine? They need to know if you have any of these conditions: heart disease history of irregular heartbeat liver disease low levels of magnesium or potassium in the blood an unusual or allergic reaction to ondansetron, granisetron, other medicines, foods, dyes, or preservatives or trying to get breast-feeding What should I watch for while using this medicine? Check with your doctor or health career placement specialist right away if you have any sign of an allergic reaction. Acetaminophen Oral tablet What is this medicine? ACETAMINOPHEN (a set a TYSHAWN wiley fen) is a pain reliever. It is used to treat mild pain and fever. How should I use this medicine? Take this medicine by mouth with a glass of water. Follow the directions on the package or prescription label. Take your medicine at regular intervals. Do not take your medicine more often than directed. Talk to your sweet potato disintegrator regarding the use of this medicine in children. While this drug may be prescribed for children as young as 6 years of age for selected conditions, precautions do apply. What side effects may I notice from receiving this medicine? Side effects that you should report to your doctor or health career placement specialist as soon as possible: allergic reactions like skin rash, itching or hives, swelling of the face, lips, or tongue breathing problems fever or sore throat redness, blistering, peeling or loosening of the skin, including inside the mouth trouble passing urine or change in the amount of urine unusual bleeding or bruising unusually weak or tired yellowing of the eyes or skin Side effects that usually do not require medical attention (report to your doctor or health career placement specialist if they continue or are bothersome): headache nausea, stomach upset What may interact with this medicine? alcohol imatinib isoniazid other medicines with acetaminophen What if I miss a dose? If you miss a dose, take it as soon as you can. If it is almost time for your next dose, take only that dose. Do not take double or extra doses. Where should I keep my medicine? Keep out of reach of children. Store at room temperature between 20 and 25 degrees C (68 and 77 degrees F). Protect from moisture and heat. Throw away any unused medicine after the expiration date. What should I tell my health care provider before I take this medicine? They need to know if you have any of these conditions: if you frequently drink alcohol containing drinks liver disease an unusual or allergic reaction to acetaminophen, other medicines, foods, dyes or preservatives or trying to get breast-feeding What should I watch for while using this medicine? Tell your doctor or health career placement specialist if the pain lasts more than 10 days (5 days for children), if it gets worse, or if there is a new or different kind of pain. Also, check with your doctor if a fever lasts for more than 3 days. Do not take other medicines that contain acetaminophen with this medicine. Always read labels carefully. If you have questions, ask your doctor or pharmacist. If you take too much acetaminophen get medical help right away. Too much acetaminophen can be very dangerous and cause liver damage. Even if you do not have symptoms, it is important to get help right away. Ibuprofen Oral tablet What is this medicine? IBUPROFEN (eye BYOO proe fen) is a non-steroidal anti-inflammatory drug (NSAID). It is used for dental pain, fever, headaches or migraines, osteoarthritis, rheumatoid arthritis, or painful monthly periods. It can also relieve minor aches and pains caused by a cold, flu, or sore throat. How should I use this medicine? Take this medicine by mouth with a glass of water. Follow the directions on the prescription label. Take this medicine with food if your stomach gets upset. Try to not lie down for at least 10 minutes after you take the medicine. Take your medicine at regular intervals. Do not take your medicine more often than directed. A special MedGuide will be given to you by the pharmacist with each prescription and refill. Be sure to read this information carefully each time. Talk to your sweet potato disintegrator regarding the use of this medicine in children. Special care may be needed. What side effects may I notice from receiving this medicine? Side effects that you should report to your doctor or health career placement specialist as soon as possible: allergic reactions like skin rash, itching or hives, swelling of the face, lips, or tongue black or bloody stools, blood in the urine or in vomit breathing problems changes in vision chest pain general ill feeling or flu-like symptoms nausea or vomiting redness, blistering, peeling or loosening of the skin, including inside the mouth slurred speech or weakness on one side of the body stomach pain unexplained weight gain or swelling unusually weak or tired yellowing of eyes or skin Side effects that usually do not require medical attention (report to your doctor or health career placement specialist if they continue or are bothersome): constipation or diarrhea dizziness gas or heartburn stomach upset What may interact with this medicine? Do not take this medicine with any of the following medications: cidofovir ketorolac methotrexate pemetrexed This medicine may also interact with the following medications: alcohol aspirin diuretics lithium other drugs for inflammation like prednisone warfarin What if I miss a dose? If you miss a dose, take it as soon as you can. If it is almost time for your next dose, take only that dose. Do not take double or extra doses. Where should I keep my medicine? Keep out of the reach of children. Store at room temperature between 15 and 30 degrees C (59 and 86 degrees F). Keep container tightly closed. Throw away any unused medicine after the expiration date. What should I tell my health care provider before I take this medicine? They need to know if you have any of these conditions: asthma cigarette smoker drink more than 3 alcohol containing drinks a day heart disease or circulation problems such as heart failure or leg edema (fluid retention) high blood pressure kidney disease liver disease stomach bleeding or ulcers an unusual or allergic reaction to ibuprofen, aspirin, other NSAIDS, other medicines, foods, dyes, or preservatives or trying to get breast-feeding What should I watch for while using this medicine? Tell your doctor or healthcare professional if your symptoms do not start to get better or if they get worse. This medicine does not prevent heart attack or stroke. In fact, this medicine may increase the chance of a heart attack or stroke. The chance may increase with longer use of this medicine and in people who have heart disease. If you take aspirin to prevent heart attack or stroke, talk with your doctor or health career placement specialist. Do not take other medicines that contain aspirin, ibuprofen, or naproxen with this medicine. Side effects such as stomach upset, nausea, or ulcers may be more likely to occur. Many medicines available without a prescription should not be taken with this medicine. This medicine can cause ulcers and bleeding in the stomach and intestines at any time during treatment. Ulcers and bleeding can happen without warning symptoms and can cause . To reduce your risk, do not smoke cigarettes or drink alcohol while you are taking this medicine. You may get drowsy or dizzy. Do not drive, use machinery, or do anything that needs mental alertness until you know how this medicine affects you. Do not stand or sit up quickly, especially if you are an older patient. This reduces the risk of dizzy or fainting spells. This medicine can cause you to bleed more easily. Try to avoid damage to your teeth and gums when you brush or floss your teeth. You have been given the following additional information: Anxiety Reaction Hyperventilation Syndrome Ondansetron Hydrochloride Oral tablet Acetaminophen Oral tablet Ibuprofen Oral tablet Do not work for two days. Rest. (Electronically signed by Benny Smith DO 03/01/2017 10:37)
--- NOTE | 2017-03-01 10:38 | ED MAR SUMMARY ---
..... Medication Administration Record [facility] [address] [place] [address] Patient: EDVIN BELL Visit ID: [id number] 26y, F Weight: 65.3 kg Height/Length: 66 in BMI: 23.2 ALLERGIES: No Known Drug Allergy Given 10:50 02/28/2017 Johnathan Hernandez, RMartaN. Medication Administered: ACETAMINOPHEN [PO] (APAP), Dose: 1000 mg PO. Medication Ordered: Acetaminophen PO 1,000 mg (NOW). Given 10:50 02/28/2017 Johnathan Hernandez, RMartaN. Medication Administered: ZOFRAN ODT [PO] (ONDANSETRON), Dose: 4 mg PO. Medication Ordered: Zofran ODT PO 4 mg (NOW).
--- NOTE | 2017-03-01 10:38 | ED MED RECONCILIATION SUMMARY ---
Patient: EDVIN BELL Medication Reconciliation Report [facility] VisitID: [id number] [address] [place] [address] 26y, F Registration Date/Time: 02/28/2017 Weight: 65.3 kg Height/Length: 66 in. BMI: 23.2 ALLERGIES: No Known Drug Allergy The patient's Home Medications are listed below: CONTINUE TAKING THE FOLLOWING MEDICATIONS: Sertraline HCl Oral The source(s) of the original Home Medication information: patient The following Medications were given to the patient in the Emergency Department: Acetaminophen [PO] PO 1000 mg, administered: 02/28/2017 10:50:00 AM Zofran ODT [PO] PO 4 mg, administered: 02/28/2017 10:50:00 AM The following Medications were prescribed to the patient: Acetaminophen (available over the counter): take according to label instructions. -- Benny Smith DO Motrin (available over the counter): take according to label instructions. -- Benny Smith DO Zofran 4 mg: take 1 orally every 6 hours as needed for nausea. Dispense ten (10). No refill. Substitution is permissible. -- Benny Smith DO
== END 2017-02-28 11:02 | disposition home or self-care (01) ==
LOC: ED SRH 10:31
DX: F41.9 Anxiety disorder, unspecified (principal); R06.4 Hyperventilation; Z79.899 Other long term (current) drug therapy